=== PATIENT | female | born 1975 | race American Indian/Alaskan Native ===

== ENCOUNTER 2016-12-04 21:44 | Emergency (ER) | payer SELFPAY ==
[2016-12-04] MEDS ORDERED: ATROVENT IH ONE ×2 (22:07→22:14)
[2016-12-04] MEDS ORDERED: PROVENTIL IH ONE ×2 (22:07→22:11)
[2016-12-04 23:02] LABS: Basophils % (Auto) 0.4 % (0.0-1.8); Eosinophils % (Auto) 0.2 % (0.0-4.3); Hematocrit 33.7 % (30.3-42.9); Hemoglobin 10.4 gm/dl (10.1-14.3); Mean Corpuscular HGB Conc 31 % (30-34); Mean Corpuscular Volume 74 fl (79-97); Platelet Count 275 K/mm3 (140-440); Red Blood Count 4.55 M/mm3 (3.65-5.03); Red Cell Distribution Width 19.2 % (13.2-15.2); White Blood Count 7.1 K/mm3 (4.5-11.0)
[2016-12-04 23:06] LABS: Mean Corpuscular Hemoglobin 23 pg (28-32)
[2016-12-04 23:08] LABS: Anion Gap 16 mmol/L; BUN/Creatinine Ratio 16.25; Blood Urea Nitrogen 13 mg/dL (7-17); Calcium 8.8 mg/dL (8.4-10.2); Carbon Dioxide 27 mmol/L (22-30); Chloride 102.3 mmol/L (98-107); Glucose 112 mg/dL (65-100); Potassium 3.9 mmol/L (3.6-5.0); Sodium 141 mmol/L (137-145)
[2016-12-05] MEDS ORDERED: TESSALON PERLES PO ONE (00:47)
[2016-12-05] MEDS ORDERED: MAGNESIUM SULFATE 2GM/50ML 2 GM/50 ML BAG IV ONE (00:47)
[2016-12-05] MEDS ORDERED: ZOFRAN IV ONE (00:47)
[2016-12-05] MEDS ORDERED: PROVENTIL IH ONE (00:47)
[2016-12-05] MEDS ORDERED: ZITHROMAX 500 MG in NACL 0.9% 250ML 250 ML IV ONE (00:47)
[2016-12-05] MEDS ORDERED: MORPHINE IV ONE (00:47)
[2016-12-05] MEDS ORDERED: PHENERGAN PO ONE (00:48)
[2016-12-05] MEDS ORDERED: TORADOL IV ONE (00:48)
--- NOTE | 2016-12-05 01:45 | Emergency Department Report ---
ED Shortness of Breath HPI - General Chief Complaint: Adult Asthma Stated Complaint: ASTHMA Time Seen by Provider: 12/05/16 00:37 Source: patient Mode of arrival: Ambulatory Limitations: No Limitations - History of Present Illness Initial Comments: 41-year-old female with a past medical history morbid obesity, CHF, COPD, asthma with history 7 intubations presents to the hospital with complaints of wheezing and shortness were 1 week. Patient also have cough productive of clear sputum. No complaints of fever but patient completed generalized pain including anterior chest wall pain worse with palpation, movement, and cough. Pain overall is rated moderate to severe in intensity and constant. No complaints of calf tenderness or edema.. Patient using home nebs without improvement. She is not currently on steroids. She does not have a primary care doctor or wildlife refuge specialist and does not use home oxygen. - Related Data Home Medications Medication Instructions Recorded Confirmed Last Taken ALBUTEROL Inhaler [ProAir HFA 2 puff IH QID PRN 08/16/15 08/16/15 08/16/15 Inhaler] Albuterol *Only Ed* [Proventil 2.5 mg IH Q6H PRN 08/16/15 08/16/15 08/16/15 0.5% NEBS] Previous Rx's Medication Instructions Recorded Last Taken Type predniSONE [Deltasone] 50 mg PO QDAY #5 tab 08/16/15 Unknown Rx ALBUTEROL Inhaler [ProAir HFA 2 puff IH QID PRN #1 inhalation 03/12/16 Unknown Rx Inhaler] Cefuroxime Axetil [Ceftin] 500 mg PO Q12H #10 tablet 03/12/16 Unknown Rx predniSONE [Deltasone] 10 mg PO .TAPER #21 tab 03/12/16 Unknown Rx Docusate Sodium [Colace] 100 mg PO BID PRN #20 capsule 07/23/16 Unknown Rx Ferrous Sulfate [Feosol 325 MG tab] 325 mg PO QDAY #30 tablet 07/23/16 Unknown Rx medroxyPROGESTERone ACETATE 10 mg PO QDAY #10 tablet 07/23/16 Unknown Rx [Provera] Azithromycin [Zithromax Z-PATO] 1 dose PO DAILY 5 Days 12/05/16 Unknown Rx Benzonatate [Tessalon Perles] 100 mg PO Q8HR #30 capsule 12/05/16 Unknown Rx Benzonatate [Tessalon Perles] 100 mg PO Q8HR PRN #30 capsule 12/05/16 Unknown Rx HYDROcodone/APAP 5-325 [[place] 1 each PO Q6HR PRN #20 tablet 12/05/16 Unknown Rx 5-325 mg TAB] Ibuprofen [Motrin] 800 mg PO Q8HR PRN #30 tablet 12/05/16 Unknown Rx Prednisone [predniSONE 10 mg 10 mg PO .TAPER #1 tab.ds.pk 12/05/16 Unknown Rx (6-Day Pack, 21 Tabs)] Allergies Allergy/AdvReac Type Severity Reaction Status Date / Time No Known Allergies Allergy Verified 07/23/16 13:39 ED Review of Systems ROS: Stated complaint: ASTHMA Other details as noted in HPI Comment: All other systems reviewed and negative Other: Constitutional: No fevers chills or weight loss Eyes: No eye pain visual changes or discharge ENT: No ear pain or throat pain Neck: Denies pain Respiratory: As per HPI Cardiovascular: As per HPI GI: Denies nausea, vomiting, diarrhea. Complains of abdominal pain secondary to coughing : Denies dysuria Musculoskeletal: Generalized body aches. Skin: Denies rash, lesions, erythema as per HPI Neurologic: Denies headache, numbness, weakness Psychiatric: Denies suicidal ideation, hallucinations ED Past Medical Hx - Past Medical History Hx Hypertension: No Hx Congestive Heart Failure: Yes Hx Diabetes: Yes Hx Deep Vein Thrombosis: No Hx Pulmonary Embolism: No Hx GERD: No Hx Liver Disease: No Hx Sickle Cell Disease: No Hx Asthma: Yes (intubated x 7) Hx COPD: Yes Hx Tuberculosis: No Hx HIV: No Additional medical history: Cardiac catheterization-normal 2011. Morbid obesity. Cholelithiasis. FIBROIDS X 3 - Surgical History Past Surgical History?: No Hx Coronary Stent: No Hx Open Heart Surgery: Yes Hx Internal Defibrillator: No Hx Cholecystectomy: No Hx Appendectomy: No Hx Breast Surgery: No - Social History Smoking Status: Never Smoker Substance Use Type: None - Medications Home Medications: Home Medications Medication Instructions Recorded Confirmed Last Taken Type ALBUTEROL Inhaler [ProAir HFA 2 puff IH QID PRN 08/16/15 08/16/15 08/16/15 History Inhaler] Albuterol *Only Ed* [Proventil 2.5 mg IH Q6H PRN 08/16/15 08/16/15 08/16/15 History 0.5% NEBS] predniSONE [Deltasone] 50 mg PO QDAY #5 tab 08/16/15 Unknown Rx ALBUTEROL Inhaler [ProAir HFA 2 puff IH QID PRN #1 inhalation 03/12/16 Unknown Rx Inhaler] Cefuroxime Axetil [Ceftin] 500 mg PO Q12H #10 tablet 03/12/16 Unknown Rx predniSONE [Deltasone] 10 mg PO .TAPER #21 tab 03/12/16 Unknown Rx Docusate Sodium [Colace] 100 mg PO BID PRN #20 capsule 07/23/16 Unknown Rx Ferrous Sulfate [Feosol 325 MG tab] 325 mg PO QDAY #30 tablet 07/23/16 Unknown Rx medroxyPROGESTERone ACETATE 10 mg PO QDAY #10 tablet 07/23/16 Unknown Rx [Provera] Azithromycin [Zithromax Z-PATO] 1 dose PO DAILY 5 Days 12/05/16 Unknown Rx Benzonatate [Tessalon Perles] 100 mg PO Q8HR #30 capsule 12/05/16 Unknown Rx Benzonatate [Tessalon Perles] 100 mg PO Q8HR PRN #30 capsule 12/05/16 Unknown Rx HYDROcodone/APAP 5-325 [[place] 1 each PO Q6HR PRN #20 tablet 12/05/16 Unknown Rx 5-325 mg TAB] Ibuprofen [Motrin] 800 mg PO Q8HR PRN #30 tablet 12/05/16 Unknown Rx Prednisone [predniSONE 10 mg 10 mg PO .TAPER #1 tab.ds.pk 12/05/16 Unknown Rx (6-Day Pack, 21 Tabs)] ED Physical Exam - General Limitations: No Limitations - Other Other exam information: General: No limitations, patient is alert in no acute distress Head exam: Atraumatic, normocephalic Eyes exam: Normal appearance ENT: Moist mucous membrane, normal oropharynx Neck exam: Normal inspection, full range of motion Respiratory exam: Bilateral expiratory wheezing, reproducible anterior chest wall tenderness. No tachypnea. Patient has received Proventil 10 and Atrovent 1 thus far Cardiovascular: Normal rate and rhythm, normal heart sounds Abdomen: Soft, nondistended, and nontender, with normal bowel sounds, no rebound, or guarding Extremity: Full range of motion normal inspection no deformity, no calf tenderness or edema Back: Normal Inspection, full range of motion, no tenderness Neurologic: Alert, oriented x3, cranial nerves intact, no motor or sensory deficit Psychiatric: normal affect, normal mood Skin: Warm, dry, intact ED Course Vital Signs 12/04/16 12/05/16 12/05/16 22:02 00:33 03:05 Temperature 98.8 F 98.2 F Pulse Rate 85 90 110 H Respiratory 28 H 22 18 Rate Blood Pressure 156/97 Blood Pressure 156/97 137/79 132/73 [Left] O2 Sat by Pulse 100 92 94 Oximetry 12/05/16 03:18 Temperature Pulse Rate 88 Respiratory 18 Rate Blood Pressure Blood Pressure [Left] O2 Sat by Pulse 100 Oximetry - Reevaluation(s) Reevaluation #1: 12/05/16 01:45 Patient received Proventil 10 mg and Atrovent 1 mg prior to my evaluation and has persistent wheezing shortness of breath. Additional nebs, magnesium, Solu- Medrol, Tessalon Perles, azithromycin, morphine, and Phenergan ordered. 12/05/16 03:05 Patient reports feeling much better with treatment. She ambulating in the ED without oxygen and without difficulty. ED Medical Decision Making - Lab Data Result diagrams: 12/04/16 22:35 12/04/16 22:35 Lab Results 12/04/16 12/04/16 Range/Units 22:35 22:35 WBC 7.1 (4.5-11.0) K/mm3 RBC 4.55 (3.65-5.03) M/mm3 Hgb 10.4 (10.1-14.3) gm/dl Hct 33.7 (30.3-42.9) % MCV 74 L (79-97) fl MCH 23 L (28-32) pg MCHC 31 (30-34) % RDW 19.2 H (13.2-15.2) % Plt Count 275 (140-440) K/mm3 Lymph % (Auto) 10.3 L (13.4-35.0) % [place] % (Auto) 11.1 H (0.0-7.3) % Eos % (Auto) 0.2 (0.0-4.3) % Baso % (Auto) 0.4 (0.0-1.8) % Lymph # 0.7 L (1.2-5.4) K/mm3 [place] # 0.8 (0.0-0.8) K/mm3 Eos # 0.0 (0.0-0.4) K/mm3 Baso # 0.0 (0.0-0.1) K/mm3 Seg Neutrophils % 78.0 H (40.0-70.0) % Seg Neutrophils # 5.5 (1.8-7.7) K/mm3 Sodium 141 (137-145) mmol/L Potassium 3.9 (3.6-5.0) mmol/L Chloride 102.3 (98-107) mmol/L Carbon Dioxide 27 (22-30) mmol/L Anion Gap 16 mmol/L BUN 13 (7-17) mg/dL Creatinine 0.8 (0.7-1.2) mg/dL Estimated GFR > 60 ml/min BUN/Creatinine Ratio 16.25 % Glucose 112 H (65-100) mg/dL Calcium 8.8 (8.4-10.2) mg/dL Troponin T < 0.010 (0.00-0.029) ng/mL - EKG Data -: EKG Interpreted by Me (sinus rhythm with fusion complexes rate 79) - Radiology Data Radiology results: image reviewed (chest x-ray: No acute findings) - Medical Decision Making Patient had dramatic improvement in the ED. Tolerated exertion without difficulty after treatment although she still has some mild persistent expiratory wheeze. She does not feel like she needs to be admitted at this time and will be discharged home. She will be Treated for acute bronchitis and acute asthma/COPD exacerbation - Differential Diagnosis pneumonia, bronchitis, asthma, COPD Critical Care Time: No Critical care attestation.: If time is entered above; I have spent that time in minutes in the direct care of this critically ill patient, excluding procedure time. ED Disposition Clinical Impression: Acute bronchitis with chronic obstructive pulmonary disease (COPD) Disposition: DISCHARGED TO HOME OR SELFCARE Is pt being admited?: No Does the pt Need Aspirin: No Condition: Stable Instructions: Acute Bronchitis (ED) Additional Instructions: Take the medication as prescribed. Follow up with doctor or clinic provided. Return if symptoms worsen Prescriptions: Azithromycin [Zithromax Z-PATO] 1 dose PO DAILY 5 Days Benzonatate [Tessalon Perles] 100 mg PO Q8HR PRN #30 capsule PRN Reason: Cough Benzonatate [Tessalon Perles] 100 mg PO Q8HR #30 capsule HYDROcodone/APAP 5-325 [[place] 5-325 mg TAB] 1 each PO Q6HR PRN #20 tablet PRN Reason: Pain Ibuprofen [Motrin] 800 mg PO Q8HR PRN #30 tablet PRN Reason: Pain Prednisone [predniSONE 10 mg (6-Day Pack, 21 Tabs)] 10 mg PO .TAPER #1 tab.ds.pk Referrals: [facility] [Provider Group] - 3-5 Days (Primary care clinic) ANTHONY BOWERS MD [Staff Physician] - 3-5 Days (primary care doctor) JING RUST MD [Staff Physician] - 3-5 Days (Lung specialist) Time of Disposition: 03:27
--- NOTE | 2016-12-05 01:51 | Admit Criteria Form ---
Admission Criteria Documentation: COPD Clinical Indications for Admission to Inpatient Care (Place 'X' for any and all applicable criteria): Admission is indicated for ANY ONE of the following (1)(2)(3): [X ]I. Acute exacerbation by high-risk comorbidity (e.g., pneumonia, dysrhythmia, heart failure, pleural effusion, pneumothorax) or severe underlying COPD (e.g., steroid dependent) [ ]II. Inpatient admission required rather than observation care (see Chronic Obstructive Pulmonary Disease: Observation Care) because of ANY ONE of the following: [ ]a) New or pre-existing signs or symptoms of COPD (eg, dyspnea or Tachypnea at rest or with minimal activity) that persist despite outpatient and observation care treatment [ ]b) New-onset hypoxemia (room air SaO2 less than 90%, PO2 less than 60 mm Hg (8.0 kPa)) that persists despite outpatient and observation care treatment [ ]c) Worsening of pre-existing hypoxemia (eg, new or increased requirement for supplemental oxygen to maintain oxygenation at baseline level) that persists despite outpatient and observation care treatment, with oxygen treatment needs performable only in acute inpatient setting [ ]d) Hypercarbia (PCO2 greater than 40 mm Hg (5.3 kPa))-induced respiratory acidosis (pH less than 7.35) that persists despite outpatient and observation care treatment [ ]e) Supplemental oxygen or respiratory treatments for over 24 hours that are performable only in acute inpatient setting [ ]f) Chest tube placement with active evacuation (e.g., suction, drainage) (5) [ ]g) Other condition, treatment or monitoring requiring inpatient admission [ ]III. Planned invasive surgical or diagnostic procedures requiring acute- care hospitalization [ ]IV. Acute respiratory failure (e.g., uncompensated hypercarbia, severe hypoxemia) [ ]V. Severe comorbid condition (e.g., severe steroid myopathy, acute vertebral fracture) that has acutely worsened pulmonary function [ ]. Confusion state, lethargy, obtundation, stupor or coma Extended stay beyond goal length of stay may be needed for (31)(32): [ ]a ) Respiratory Failure. [ ]b) Severe or persisting hypoxemia or hypercarbia [ ]c) Severe or persistent dyspnea [ ]d) Comorbidities (e.g. chronic heart failure, atrial fibrillation with rapid response, pneumonia) [ ]e) Malnutrition The original [facility] content created by [facility] has been revised. The portions of the content which have been revised are identified through the use of italic text or in bold, and [facility] has neither reviewed nor approved the modified material. All other unmodified content is copyright [facility]. Please see references footnoted in the original [facility] edition 2016 Admission Criteria Met: Yes
[2016-12-05 03:06] VITALS: BP 132/73
--- NOTE | 2016-12-05 07:43 | XRay Report ---
CHEST 2 VIEWS INDICATION: Shortness of breath. COMPARISON: 03/10/2016 FINDINGS: Frontal and lateral chest radiographs, 4 images, again limited due to patient body habitus, though demonstrate normal cardiomediastinal silhouette and slightly hyperexpanded lungs. Prominent/somewhat crowded lung markings are though new since 08/16/2015 CXR. No large pleural effusions or CHF. Grossly unremarkable bones. CONCLUSION: Borderline pulmonary vascular congestion possible, as described. Please correlate. Thank you for the opportunity to participate in this patient's care.
== END 2016-12-05 03:42 | disposition home or self-care (01) ==
LOC: ED 21:44
DX: J44.9 Chronic obstructive pulmonary disease, unspecified (principal); J20.9 Acute bronchitis, unspecified; J45.909 Unspecified asthma, uncomplicated; E11.9 Type 2 diabetes mellitus without complications; I50.9 Heart failure, unspecified; E66.01 Morbid (severe) obesity due to excess calories
CPT/HCPCS: 36415; 71020; 80048; 84484; 85025; 93005; 93010; 96365; 96375; 99284; J0456; J1885; J2270; J2405; J2930; J3475; J7050; Q0169

== ENCOUNTER 2016-12-06 19:14 | Inpatient (IN) | payer OTHER ==
[2016-12-06] MEDS ORDERED: ATROVENT IH ONE ×2 (19:37→22:17)
[2016-12-06] MEDS ORDERED: DELTASONE ONE (19:38)
[2016-12-06] MEDS ORDERED: PROVENTIL IH ONE ×3 (19:38→22:16)
[2016-12-06] MEDS ORDERED: DELTASONE PO ONE (19:45)
[2016-12-07] MEDS ORDERED: MAGNESIUM SULFATE 2GM/50ML 2 GM/50 ML BAG IV ONE (00:50)
[2016-12-07 02:54] LABS: Bilirubin,Urine NEG (Negative); Blood,Urine LG (Negative); Ketones,Urine NEG (Negative); Leukocyte Esterase,Urine NEG (Negative); Mucus,Urine FEW /HPF; Nitrite,Urine NEG (Negative); Protein,Urine <15 mg/dL mg/dL (Negative); Urobilinogen,Urine < 2.0 mg/dL (<2.0); WBC,Urine < 1.0 /HPF (0.0-6.0)
--- NOTE | 2016-12-07 03:08 | Emergency Department Report ---
HPI - General Chief Complaint: Dyspnea/Respdistress Time Seen by Provider: 12/07/16 02:43 - HPI HPI: Room 4 The patient is a 41-year-old female presenting with chief complaint of shortness of breath. The patient states she was seen in the ED a few days ago for the same and treated for acute asthma exacerbation. The patient states she had felt improved at the time of discharge by the time she went home her symptoms have returned. Patient states she's been taking all of her medication but did not give her prednisone prescription filled. Patient states she has some leftover prednisone from previous treatments so she did take some. Patient is to call this been nonproductive. Patient admits to subjective fever and rhinorrhea. Location: Lungs see above Duration: [see above] Quality: Shortness of breath Severity: Moderate Modifying factors: [see above] Context: [see above] Mode of transportation: [not driving] ED Past Medical Hx - Past Medical History Hx Congestive Heart Failure: Yes Hx Asthma: Yes (intubated x 7) Hx COPD: Yes Additional medical history: Cardiac catheterization-normal 2011. Morbid obesity. Cholelithiasis. FIBROIDS X 3 - Family History Family history: no significant - Social History Smoking Status: Former Smoker (none x 6 months) Substance Use Type: None - Medications Home Medications: Home Medications Medication Instructions Recorded Confirmed Last Taken Type Albuterol *Only Ed* [Proventil 2.5 mg IH Q6H PRN 08/16/15 12/07/16 12/06/16 History 0.5% NEBS] predniSONE [Deltasone] 50 mg PO QDAY #5 tab 08/16/15 12/07/16 12/06/16 Rx ALBUTEROL Inhaler [ProAir HFA 2 puff IH QID PRN #1 inhalation 03/12/16 12/07/16 12/06/16 Rx Inhaler] Cefuroxime Axetil [Ceftin] 500 mg PO Q12H #10 tablet 03/12/16 12/07/16 12/06/16 Rx predniSONE [Deltasone] 10 mg PO .TAPER #21 tab 03/12/16 12/07/16 12/06/16 Rx Docusate Sodium [Colace] 100 mg PO BID PRN #20 capsule 07/23/16 12/07/16 Rx Ferrous Sulfate [Feosol 325 MG tab] 325 mg PO QDAY #30 tablet 07/23/16 12/07/16 12/06/16 Rx medroxyPROGESTERone ACETATE 10 mg PO QDAY #10 tablet 07/23/16 12/07/16 12/06/16 Rx [Provera] Azithromycin [Zithromax Z-PATO] 1 dose PO DAILY 5 Days 12/05/16 12/07/16 Rx Benzonatate [Tessalon Perles] 100 mg PO Q8HR #30 capsule 12/05/16 12/07/1612/06 Rx HYDROcodone/APAP 5-325 [[place] 1 each PO Q6HR PRN #20 tablet 12/05/16 12/07/16 01:42 Rx 5-325 mg TAB] Ibuprofen [Motrin] 800 mg PO Q8HR PRN #30 tablet 12/05/16 12/07/16 12/06/16 Rx Prednisone [predniSONE 10 mg 10 mg PO .TAPER #1 tab.ds.pk 12/05/16 12/07/16 Rx (6-Day Pack, 21 Tabs)] ED Review of Systems ROS: Stated complaint: DIFFICULTY IN BREATHING Other details as noted in HPI Comment: All other systems reviewed and negative Constitutional: fever (subjective) Eyes: denies: eye pain, eye discharge, vision change ENT: denies: ear pain, throat pain Respiratory: cough, shortness of breath, wheezing Cardiovascular: denies: chest pain, palpitations Endocrine: no symptoms reported Gastrointestinal: denies: abdominal pain, nausea, diarrhea Genitourinary: denies: urgency, dysuria, discharge Musculoskeletal: denies: back pain, joint swelling, arthralgia Skin: denies: rash, lesions Neurological: denies: headache, weakness, paresthesias Psychiatric: denies: anxiety, depression Hematological/Lymphatic: denies: easy bleeding, easy bruising Physical Exam - Physical Exam Vital Signs: Vital Signs 12/06/16 12/06/16 12/06/16 19:19 19:48 19:57 Temperature 99.6 F Pulse Rate 94 H Pulse Rate [ 94 H 100 H Posterior Bilateral Throughout] Respiratory 20 Rate Respiratory 22 22 Rate [Posterior Bilateral Throughout] Blood Pressure 153/99 Blood Pressure 153/99 [Left] O2 Sat by Pulse 99 Oximetry 12/06/16 12/06/16 12/07/16 22:47 23:10 00:19 Temperature 98.6 F Pulse Rate 85 Pulse Rate [ 84 89 Posterior Bilateral Throughout] Respiratory 20 Rate Respiratory 20 20 Rate [Posterior Bilateral Throughout] Blood Pressure 149/90 Blood Pressure [Left] O2 Sat by Pulse 99 Oximetry Physical Exam: GENERAL: The patient is well-developed well-nourished female lying on stretcher not appearing to be in acute distress. [] HEENT: Normocephalic. Atraumatic. Extraocular motions are intact. Patient has moist mucous membranes. NECK: Supple. No meningitic signs are noted. There is no adenopathy noted. CHEST/LUNGS: Breath sounds with occasional faint expiratory wheezing auscultated. HEART/CARDIOVASCULAR: Regular. There is no tachycardia. There is no gallop rub or murmur. ABDOMEN: Abdomen is soft, nontender. Patient has normal bowel sounds. There is no abdominal distention. SKIN: There is no rash. There is no diaphoresis. NEURO: The patient is awake, alert, and oriented. The patient is cooperative. The patient has normal speech and gait. MUSCULOSKELETAL: There is no evidence of acute injury. ED Course Vital Signs 12/06/16 12/06/16 12/06/16 19:19 19:48 19:57 Temperature 99.6 F Pulse Rate 94 H Pulse Rate [ 94 H 100 H Posterior Bilateral Throughout] Respiratory 20 Rate Respiratory 22 22 Rate [Posterior Bilateral Throughout] Blood Pressure 153/99 Blood Pressure 153/99 [Left] O2 Sat by Pulse 99 Oximetry 12/06/16 12/06/16 12/07/16 22:47 23:10 00:19 Temperature 98.6 F Pulse Rate 85 Pulse Rate [ 84 89 Posterior Bilateral Throughout] Respiratory 20 Rate Respiratory 20 20 Rate [Posterior Bilateral Throughout] Blood Pressure 149/90 Blood Pressure [Left] O2 Sat by Pulse 99 Oximetry ED Medical Decision Making - Lab Data Laboratory Tests 12/07/16 12/07/16 12/07/16 01:15 01:15 02:00 Magnesium 2.0 NT-Pro-B Natriuret Pep 54.91 Urine Color Straw Urine Turbidity Clear Urine pH 7.0 Ur Specific [place] 1.009 Urine Protein <15 mg/dl Urine Glucose (UA) Neg Urine Ketones Neg Urine Blood Lg Urine Nitrite Neg Urine Bilirubin Neg Urine Urobilinogen < 2.0 Ur Leukocyte Esterase Neg Urine WBC (Auto) < 1.0 Urine RBC (Auto) 163.0 U Epithel Cells (Auto) 3.0 Urine Mucus Few - EKG Data -: EKG Interpreted by Me EKG shows normal: sinus rhythm Rate: normal - EKG Data When compared to previous EKG there are: no significant change Interpretation: unchanged when compared t (12/04/2016) - Radiology Data Radiology results: image reviewed (chest x-ray) interpreted by me: Chest x-ray-no definite focal infiltrates, no pneumothorax. His lower lung smith bleeding to be secondary to breast shadows/morbid obesity - Differential Diagnosis asthma exacerbation, COPD exacerbation, CHF exacerbation Critical care attestation.: If time is entered above; I have spent that time in minutes in the direct care of this critically ill patient, excluding procedure time. ED Disposition Clinical Impression: Shortness of breath, COPD exacerbation Disposition: OP ADMITTED IP TO THIS HOSP Is pt being admited?: Yes Does the pt Need Aspirin: Yes Condition: Fair Instructions: Chronic Obstructive Pulmonary Disease (ED) Referrals: PRIMARY CARE, [Primary Care Provider] - 3-5 Days Time of Disposition: 03:40 (hospitalist notified)
[2016-12-07] MEDS ORDERED: NORCO 5/325 PO ONE (03:31)
[2016-12-07 04:24] LABS: Anion Gap 15 mmol/L; BUN/Creatinine Ratio 12.85; Blood Urea Nitrogen 9 mg/dL (7-17); Calcium 8.6 mg/dL (8.4-10.2); Carbon Dioxide 27 mmol/L (22-30); Chloride 98.8 mmol/L (98-107); Glucose 110 mg/dL (65-100); Potassium 4.9 mmol/L (3.6-5.0); Sodium 136 mmol/L (137-145)
[2016-12-07 05:21] LABS: Basophils % (Auto) 0.4 % (0.0-1.8); Hemoglobin 10.5 gm/dl (10.1-14.3); Mean Corpuscular HGB Conc 31 % (30-34); Mean Corpuscular Volume 73 fl (79-97); Platelet Count 279 K/mm3 (140-440); Red Blood Count 4.65 M/mm3 (3.65-5.03); Red Cell Distribution Width 18.8 % (13.2-15.2); White Blood Count 5.3 K/mm3 (4.5-11.0)
[2016-12-07 05:22] LABS: Mean Corpuscular Hemoglobin 23 pg (28-32)
--- NOTE | 2016-12-07 05:28 | History and Physical Report ---
History of Present Illness Date of examination: 12/07/16 Date of admission: 12/07/16 03:39 Chief complaint: Shortness of breath History of present illness: 41-year-old -[place] female with medical history significant for COPD, morbid obesity, obesity hypoventilation syndrome, obstructive sleep apnea presented to the emergency department complaining of shortness of breath for the past 2 weeks. Patient was here 2 days ago and was treated with breathing treatment and was given a prescription for the treatment of COPD and she brought all her medications except steroid. Patient didn't get better and she presented to the emergency department with complaints of shortness of breath. In the ED she was given breathing treatments but she still feels short of breath when she is ambulating. Chest x-ray is normal, CTA is pending. REVIEW OF SYSTEMS: GENERAL: no weight change, no fatigue, no fever HEAD: no head ache EYES: no blurry vision, no acute visual loss EARS: no hearing loss, no discharge, no earache NOSE: no stuffiness, no sneezing, no discharge MOUTH, THROAT AND NECK: no bleeding gums, no sore throat, no swollen neck CARDIAC: no palpitations, no dyspnea on exertion, no orthopnea, no PND, + edema , no chest pain RESPIRATORY: + shortness of breath, no wheeze, no cough, no sputum, no hemoptysis, no asthma GI: no decreased appetite, no nausea, no vomiting, no dysphagia, no diarrhea, no constipation, no abdominal pain URINARY: no change in frequency, no urgency, no polyuria, no hematuria, no incontinence MUSCULOSKELETAL: no muscle weakness, no pain, no joint stiffness NEUROLOGIC: no loss of sensation/numbness, no tingling, no tremors, no weakness/ paralysis HEMATOLOGIC: no anemia, no easy bruising SKIN: no rashes ENDOCRINE: no heat/cold intolerance, no polyuria, no polydipsia, no thyroid problems, no diabetes PSYCHIATRIC: no anxiety, no depression, no suicidal ideations Past History Past Medical History: COPD Past Surgical History: No surgical history Social history: full code. denies: smoking, alcohol abuse, prescription drug abuse, IV drug use Family history: diabetes, hypertension Medications and Allergies Allergies Allergy/AdvReac Type Severity Reaction Status Date / Time No Known Allergies Allergy Verified 07/23/16 13:39 Home Medications Medication Instructions Recorded Confirmed Last Taken Type Albuterol *Only Ed* [Proventil 2.5 mg IH Q6H PRN 08/16/15 12/07/16 12/06/16 History 0.5% NEBS] predniSONE [Deltasone] 50 mg PO QDAY #5 tab 08/16/15 12/07/16 12/06/16 Rx ALBUTEROL Inhaler [ProAir HFA 2 puff IH QID PRN #1 inhalation 03/12/16 12/07/16 12/06/16 Rx Inhaler] Cefuroxime Axetil [Ceftin] 500 mg PO Q12H #10 tablet 03/12/16 12/07/16 12/06/16 Rx predniSONE [Deltasone] 10 mg PO .TAPER #21 tab 03/12/16 12/07/16 12/06/16 Rx Docusate Sodium [Colace] 100 mg PO BID PRN #20 capsule 07/23/16 12/07/16 Rx Ferrous Sulfate [Feosol 325 MG tab] 325 mg PO QDAY #30 tablet 07/23/16 12/07/16 12/06/16 Rx medroxyPROGESTERone ACETATE 10 mg PO QDAY #10 tablet 07/23/16 12/07/16 12/06/16 Rx [Provera] Azithromycin [Zithromax Z-PATO] 1 dose PO DAILY 5 Days 12/05/16 12/07/16 Rx Benzonatate [Tessalon Perles] 100 mg PO Q8HR #30 capsule 12/05/16 12/07/1612/06 Rx HYDROcodone/APAP 5-325 [[place] 1 each PO Q6HR PRN #20 tablet 12/05/16 12/07/16 01:42 Rx 5-325 mg TAB] Ibuprofen [Motrin] 800 mg PO Q8HR PRN #30 tablet 12/05/16 12/07/16 12/06/16 Rx Prednisone [predniSONE 10 mg 10 mg PO .TAPER #1 tab.ds.pk 12/05/16 12/07/16 Rx (6-Day Pack, 21 Tabs)] Active Meds: Active Medications Albuterol/Ipratropium (Duoneb 0.5 Mg-3 Mg/3 Ml Soln) 1 ampul IH QIDRT [place] Azithromycin (Zithromax) 500 mg PO Q24H [facility] Enoxaparin Sodium (Lovenox) 40 mg SUB-Q QDAY [facility] Methylprednisolone Sodium Succinate (Solu-Medrol) 125 mg IV Q8H [facility] Exam - Physical Exam Narrative exam: Not in cardiopulmonary distress. The patient is morbidly obese. Vital signs as documented. Head exam is unremarkable. No scleral icterus . Neck is without jugular venous distension, thyromegaly, or carotid bruits. Lungs scant for scattered wheezing. Cardiac exam reveals regular rate and Rhythm. First and second heart sounds normal. No murmurs, rubs or gallops. Abdominal exam reveals normal bowel sounds, no masses, no organomegaly and no aortic enlargement. Extremities are nonedematous and both femoral and pedal pulses are normal. REED MAN: Alert and oriented 3. No focal weakness. - Constitutional Vitals: Temp Pulse Resp BP Pulse Ox 98.2 F 71 20 119/70 96 12/07/16 01:00 12/07/16 01:00 12/07/16 03:51 12/07/16 01:00 12/07/16 01:00 Results - Labs CBC & Chem 7: 12/07/16 03:56 12/07/16 03:56 Labs: Laboratory Last Values [place] % (Auto) 4.4 % (0.0-7.3) 12/07/16 03:56 Eos % (Auto) 0.0 % (0.0-4.3) 12/07/16 03:56 [place] # 0.2 K/mm3 (0.0-0.8) 12/07/16 03:56 Eos # 0.0 K/mm3 (0.0-0.4) 12/07/16 03:56 Baso # 0.0 K/mm3 (0.0-0.1) 12/07/16 03:56 Seg Neutrophils % 84.4 % (40.0-70.0) H 12/07/16 03:56 Seg Neutrophils # 4.5 K/mm3 (1.8-7.7) 12/07/16 03:56 Sodium 136 mmol/L (137-145) L 12/07/16 03:56 Potassium 4.9 mmol/L (3.6-5.0) D 12/07/16 03:56 Chloride 98.8 mmol/L (98-107) 12/07/16 03:56 Carbon Dioxide 27 mmol/L (22-30) 12/07/16 03:56 Anion Gap 15 mmol/L 12/07/16 03:56 BUN 9 mg/dL (7-17) 12/07/16 03:56 Creatinine 0.7 mg/dL (0.7-1.2) 12/07/16 03:56 Estimated GFR > 60 ml/min 12/07/16 03:56 BUN/Creatinine Ratio 12.85 % 12/07/16 03:56 Glucose 110 mg/dL (65-100) H 12/07/16 03:56 Calcium 8.6 mg/dL (8.4-10.2) 12/07/16 03:56 Magnesium 2.0 mg/dL (1.7-2.3) 12/07/16 01:15 NT-Pro-B Natriuret Pep 54.91 pg/mL (0-450) 12/07/16 01:15 Urine Color Straw (Yellow) 12/07/16 02:00 Urine Turbidity Clear (Clear) 12/07/16 02:00 Urine pH 7.0 (5.0-7.0) 12/07/16 02:00 Ur Specific Theresa 1.009 (1.003-1.030) 12/07/16 02:00 Urine Protein <15 mg/dl mg/dL (Negative) 12/07/16 02:00 Urine Glucose (UA) Neg mg/dL (Negative) 12/07/16 02:00 Urine Ketones Neg mg/dL (Negative) 12/07/16 02:00 Urine Blood Lg (Negative) 12/07/16 02:00 Urine Nitrite Neg (Negative) 12/07/16 02:00 Urine Bilirubin Neg (Negative) 12/07/16 02:00 Urine Urobilinogen < 2.0 mg/dL (<2.0) 12/07/16 02:00 Ur Leukocyte Esterase Neg (Negative) 12/07/16 02:00 Urine WBC (Auto) < 1.0 /HPF (0.0-6.0) 12/07/16 02:00 Urine RBC (Auto) 163.0 /HPF (0.0-6.0) 12/07/16 02:00 U Epithel Cells (Auto) 3.0 /HPF (0-13.0) 12/07/16 02:00 Urine Mucus Few /HPF 12/07/16 02:00 - Imaging and Cardiology Chest x-ray: image reviewed (no acute cardiopulmonary process) Assessment and Plan Assessment and plan: COPD exacerbation Morbid obesity HAMMAD - On Solu-Medrol, breathing treatment, azithromycin - Follow CTA result - Continue CPAP at night DVT prophylaxis - Lovenox Disposition - Admit to the floor Advance Directives: Yes VTE prophylaxis?: Chemical Plan of care discussed with patient/family: Yes
[2016-12-07] MEDS ORDERED: NACL ONE (05:40)
--- NOTE | 2016-12-07 06:22 | Cat Scan Report ---
FINAL REPORT PROCEDURE: CT ANGIO CHEST TECHNIQUE: Computerized axial tomographic angiography of the chest and pulmonary arteries was performed after the IV injection of iodinated nonionic contrast. The image data was postprocessed using maximum intensity projection (MIP) and 2-dimensional multiplanar reformatted (MPR) techniques. The examination is specifically tailored to the evaluation of the pulmonary arteries per clinical request. HISTORY: Short of breath 786.09, chest pain 786.50, r/o pe COMPARISON: No prior studies are available for comparison. FINDINGS: Heart and pericardium: Normal. Thoracic aorta: There is no thoracic aortic aneurysm or dissection.. Pulmonary vasculature: There is no pulmonary embolism.. Lymph nodes: No enlarged thoracic lymph nodes. Lungs: There is suboptimal inspiration. There are no infiltrates, effusions or pneumothoraces.. Musculoskeletal structures: No significant abnormality. Upper abdominal structures: No significant abnormality. IMPRESSION: There is no thoracic aortic aneurysm or dissection.. There is no pulmonary embolism.. There is suboptimal inspiration. There are no infiltrates, effusions or pneumothoraces.. .
[2016-12-07] MEDS: ZITHROMAX PO SCH (06:49)
[2016-12-07] MEDS: DUONEB 0.5 MG-3 MG/3 ML SOLN IH SCH ×4 (07:49→20:14)
[2016-12-07] MEDS: LOVENOX SUB-Q SCH (10:55)
[2016-12-07] MEDS ORDERED: MOTRIN PO PRN (11:00)
[2016-12-07] MEDS ORDERED: PNEUMOVAX 23 IM ONE (12:00)
--- NOTE | 2016-12-07 12:10 | XRay Report ---
AP CHEST :12/07/16 CLINICAL: Shortness of breath. COMPARISON:12/04/16 FINDINGS: Normal heart and pulmonary vasculature. The lungs are normally expanded and clear. The bones and soft tissues are normal. IMPRESSION: Normal.
[2016-12-07] MEDS ORDERED: ATROVENT IH PRN (12:17)
[2016-12-07] MEDS ORDERED: PROVENTIL IH PRN (12:20)
--- NOTE | 2016-12-07 16:15 | Event Note ---
Date: 12/07/16 41-year-old -[place] female with medical history significant for COPD, morbid obesity, obesity hypoventilation syndrome, obstructive sleep apnea presented to the emergency department complaining of shortness of breath for the past 2 weeks. She was admitted this am. Will cont current Mx as dictated in H and P. Will resume home meds and do 6 minutes walk study for home o2 requirement.
[2016-12-08] MEDS ORDERED: APRESOLINE PO PRN (00:41)
[2016-12-08] MEDS ORDERED: APRESOLINE IV PRN (00:47)
[2016-12-08] MEDS: ZITHROMAX PO SCH (06:12)
--- NOTE | 2016-12-08 08:46 | Discharge Summary ---
Providers - Providers Date of Admission: 12/07/16 03:39 Date of discharge: 12/08/16 Attending physician: OBDULIO HOOKER 12/07/16 18:03 Consult to Case Management [CONS] Routine Services Needed at Discharge: Gis Mapping Technician Notified:: no Primary care physician: PROJECT PLANNER Hospitalization Condition: Fair Hospital course: 41-year-old -[place] female with medical history significant for COPD, morbid obesity, obesity hypoventilation syndrome, obstructive sleep apnea presented to the emergency department complaining of shortness of breath for the past 2 weeks. Patient was here 2 days ago and was treated with breathing treatment and was given a prescription for the treatment of COPD and she brought all her medications except steroid. Patient didn't get better and she presented to the ER with complaints of shortness of breath. In the ED she was given breathing treatments but she still c/o short of breath when she is ambulats. Chest x-ray is normal, CTA did not show any PE or infiltrates. She was placed on BiPAP as needed and scheduled breathing treatment along with emperic steroid. She was improved clinically. She was assessed for home o2 requirement by 6 minutes walk study and she did qualified for O2. She was discharged home with home O2. She will need out pt sleep study for HAMMAD. Discharge Diagnoses; Acute hypoxic respiratory failure COPD exacerbation Morbid obesity, due to access calorie HAMMAD, need out pt sleep study Accelerated HTN Disposition: DISCHARGED TO HOME OR SELFCARE Time spent for discharge: 32 minutes Core Measure Documentation - Palliative Care Palliative Care/ Comfort Measures: Not Applicable - Core Measures Any of the following diagnoses?: none Exam - Constitutional Vitals: Temp Pulse Resp BP Pulse Ox 97.4 F L 62 22 138/87 99 12/08/16 08:00 12/08/16 08:00 12/08/16 08:00 12/08/16 08:00 12/08/16 08:00 General appearance: Present: no acute distress, obese - EENT Eyes: Present: PERRL, EOM intact ENT: hearing intact, clear oral mucosa - Neck Neck: Present: supple, normal ROM - Respiratory Respiratory: bilateral: CTA - Cardiovascular Rhythm: regular Heart Sounds: Present: S1 & S2 - Extremities Extremities: no ischemia, No edema Peripheral Pulses: within normal limits - Abdominal General gastrointestinal: Present: soft, non-tender, non-distended - Integumentary Integumentary: Present: warm, dry - Musculoskeletal Musculoskeletal: strength equal bilaterally - Psychiatric Psychiatric: appropriate mood/affect - Neurologic Neurologic: no focal deficits, moves all extremities Plan Activity: advance as tolerated Weight Bearing Status: Weight Bear as Tolerated Diet: low fat, low salt Durable Medical Equipment Needed Upon Discharge: Oxygen Additional Instructions: out pt sleep study Follow up with: PRIMARY CARE, [Primary Care Provider] - 3-5 Days
[2016-12-08] MEDS: DUONEB 0.5 MG-3 MG/3 ML SOLN IH SCH ×2 (08:55→13:25)
--- NOTE | 2016-12-08 10:00 | Admit Criteria Form ---
Admission Criteria Documentation: COPD Clinical Indications for Admission to Inpatient Care (Place 'X' for any and all applicable criteria): Admission is indicated for ANY ONE of the following (1)(2)(3): [ ]I. Acute exacerbation by high-risk comorbidity (e.g., pneumonia, dysrhythmia, heart failure, pleural effusion, pneumothorax) or severe underlying COPD (e.g., steroid dependent) [X]II. Inpatient admission required rather than observation care (see Chronic Obstructive Pulmonary Disease: Observation Care) because of ANY ONE of the following: [X]a) New or pre-existing signs or symptoms of COPD (eg, dyspnea or Tachypnea at rest or with minimal activity) that persist despite outpatient and observation care treatment [ ]b) New-onset hypoxemia (room air SaO2 less than 90%, PO2 less than 60 mm Hg (8.0 kPa)) that persists despite outpatient and observation care treatment [ ]c) Worsening of pre-existing hypoxemia (eg, new or increased requirement for supplemental oxygen to maintain oxygenation at baseline level) that persists despite outpatient and observation care treatment, with oxygen treatment needs performable only in acute inpatient setting [ ]d) Hypercarbia (PCO2 greater than 40 mm Hg (5.3 kPa))-induced respiratory acidosis (pH less than 7.35) that persists despite outpatient and observation care treatment [ ]e) Supplemental oxygen or respiratory treatments for over 24 hours that are performable only in acute inpatient setting [ ]f) Chest tube placement with active evacuation (e.g., suction, drainage) (5) [ ]g) Other condition, treatment or monitoring requiring inpatient admission [ ]III. Planned invasive surgical or diagnostic procedures requiring acute- care hospitalization [ ]IV. Acute respiratory failure (e.g., uncompensated hypercarbia, severe hypoxemia) [ ]V. Severe comorbid condition (e.g., severe steroid myopathy, acute vertebral fracture) that has acutely worsened pulmonary function [ ]. Confusion state, lethargy, obtundation, stupor or coma Extended stay beyond goal length of stay may be needed for (31)(32): [ ]a ) Respiratory Failure. [ ]b) Severe or persisting hypoxemia or hypercarbia [ ]c) Severe or persistent dyspnea [ ]d) Comorbidities (e.g. chronic heart failure, atrial fibrillation with rapid response, pneumonia) [ ]e) Malnutrition The original [facility] content created by [facility] has been revised. The portions of the content which have been revised are identified through the use of italic text or in bold, and [facility] has neither reviewed nor approved the modified material. All other unmodified content is copyright [facility]. Please see references footnoted in the original [facility] edition 2016 Admission Criteria Met: Yes
[2016-12-08] MEDS: LOVENOX SUB-Q SCH (10:39)
[2016-12-08 17:43] VITALS: BP 140/92
== END 2016-12-08 18:12 | disposition home or self-care (01) | DRG 189 ==
LOC: ED 19:14 → 3A 12-07 03:39
PROVIDERS: ADMIT Internal Medicine; ATTEND Internal Medicine
PROC: 5A09357 Assistance with Respiratory Ventilation, Less than 24 Consecutive Hours, Continuous Positive Airway Pressure (ICD-10-PCS; principal; 2016-12-07)
DX: J96.01 Acute respiratory failure with hypoxia (principal); J45.901 Unspecified asthma with (acute) exacerbation; Z68.44 Body mass index [BMI] 60.0-69.9, adult; J44.1 Chronic obstructive pulmonary disease with (acute) exacerbation; E66.2 Morbid (severe) obesity with alveolar hypoventilation; G47.33 Obstructive sleep apnea (adult) (pediatric); Z83.3 Family history of diabetes mellitus; Z82.49 Family history of ischemic heart disease and other diseases of the circulatory system; I10 Essential (primary) hypertension; Z99.81 Dependence on supplemental oxygen
CPT/HCPCS: 36415; 71010; 71275; 80048; 81001; 81025; 83735; 83880; 85025; 87400; 93005; 93010; 94640; 94760; 96365; J0360; J1650; J2930; J3475; J7512; Q9967

== ENCOUNTER 2017-02-15 21:06 | Emergency (ER) | payer SELFPAY ==
[2017-02-15 22:03] VITALS: BP 129/90
[2017-02-15 22:59] LABS: Basophils % (Auto) 0.8 % (0.0-1.8); Eosinophils % (Auto) 1.4 % (0.0-4.3); Hematocrit 33.1 % (30.3-42.9); Hemoglobin 10.3 gm/dl (10.1-14.3); Mean Corpuscular HGB Conc 31 % (30-34); Mean Corpuscular Volume 74 fl (79-97); Platelet Count 261 K/mm3 (140-440); Red Blood Count 4.47 M/mm3 (3.65-5.03); Red Cell Distribution Width 19.1 % (13.2-15.2); White Blood Count 8.7 K/mm3 (4.5-11.0)
[2017-02-15 23:00] LABS: Mean Corpuscular Hemoglobin 23 pg (28-32)
[2017-02-15 23:07] LABS: INR 0.99 (0.87-1.13)
[2017-02-15 23:15] LABS: Anion Gap 17 mmol/L; BUN/Creatinine Ratio 18.33; Blood Urea Nitrogen 11 mg/dL (7-17); Calcium 8.8 mg/dL (8.4-10.2); Carbon Dioxide 25 mmol/L (22-30); Chloride 104.2 mmol/L (98-107); Glucose 108 mg/dL (65-100); Potassium 4.2 mmol/L (3.6-5.0); Sodium 142 mmol/L (137-145)
--- NOTE | 2017-02-16 07:29 | XRay Report ---
ROUTINE CHEST, TWO VIEWS: HISTORY: Dyspnea. Compared to 12/07/16. The trachea, heart, mediastinal contour, lung smith and bony thorax are unremarkable. IMPRESSION: Unremarkable chest x-ray.
--- NOTE | 2017-02-18 10:05 | ED Elopement Review ---
ED Pt Elopement review - Results review Lab results: Laboratory Tests 02/15/17 02/15/17 02/15/17 22:37 22:37 22:37 WBC 8.7 RBC 4.47 Hgb 10.3 Hct 33.1 MCV 74 L MCH 23 L MCHC 31 RDW 19.1 H Plt Count 261 Lymph % (Auto) 31.2 [place] % (Auto) 8.5 H Eos % (Auto) 1.4 Baso % (Auto) 0.8 Lymph # 2.7 [place] # 0.7 Eos # 0.1 Baso # 0.1 Seg Neutrophils % 58.1 Seg Neutrophils # 5.1 PT 13.0 INR 0.99 Sodium 142 Potassium 4.2 Chloride 104.2 Carbon Dioxide 25 Anion Gap 17 BUN 11 Creatinine 0.6 L Estimated GFR > 60 BUN/Creatinine Ratio 18.33 Glucose 108 H Calcium 8.8 Troponin T HCG, Quant 02/15/17 02/15/17 22:37 22:37 WBC RBC Hgb Hct MCV MCH MCHC RDW Plt Count Lymph % (Auto) [place] % (Auto) Eos % (Auto) Baso % (Auto) Lymph # [place] # Eos # Baso # Seg Neutrophils % Seg Neutrophils # PT INR Sodium Potassium Chloride Carbon Dioxide Anion Gap BUN Creatinine Estimated GFR BUN/Creatinine Ratio Glucose Calcium Troponin T < 0.010 HCG, Quant < 2 - Call Back decision Pt Call Back Decision: No action required
== END 2017-02-16 00:10 | disposition left against medical advice (07) ==
LOC: ED 21:06
DX: R06.02 Shortness of breath (principal); R06.2 Wheezing; Z53.21 Procedure and treatment not carried out due to patient leaving prior to being seen by health care provider
CPT/HCPCS: 36415; 71020; 80048; 84484; 84702; 85025; 85610; 93005; 93010

== ENCOUNTER 2017-04-20 11:27 | Emergency (ER) | payer SELFPAY ==
--- NOTE | 2017-04-20 11:49 | Emergency Department Report ---
Chief Complaint: Dyspnea/Respdistress Stated Complaint: SOB/COPD Time Seen by Provider: 04/20/17 11:47 - HPI History of Present Illness: PT c/o SOB and feeling chest tightness x 1 week. PT states she has COPD but she has not heard herself wheeze. - ROS Review of Systems: + palpitations - edema to ble + urinary frequency - Exam Physical Exam: morbidly obese + diminished lung sounds, + exp wheezing MSE screening note: Focused history and physical exam performed. Due to findings the following was ordered: xr, ekg, labs ED Disposition for MSE Condition: Stable
[2017-04-20] MEDS ORDERED: DUONEB *Not for PRN Use IH ONE (11:50)
--- NOTE | 2017-04-20 12:07 | XRay Report ---
ROUTINE CHEST, TWO VIEWS: Dyspnea. PA and lateral views demonstrate the heart and mediastinal contour to be of normal size and shape. The lungs are clear and fully expanded and the soft tissues and bony structures are normal. No change compared to February 15, 2017. IMPRESSION: Normal study.
[2017-04-20 12:51] LABS: Basophils % (Auto) 0.7 % (0.0-1.8); Eosinophils % (Auto) 0.7 % (0.0-4.3); Hematocrit 34.1 % (30.3-42.9); Hemoglobin 10.6 gm/dl (10.1-14.3); Mean Corpuscular HGB Conc 31 % (30-34); Mean Corpuscular Volume 75 fl (79-97); Platelet Count 232 K/mm3 (140-440); Red Blood Count 4.52 M/mm3 (3.65-5.03); Red Cell Distribution Width 18.5 % (13.2-15.2); White Blood Count 5.2 K/mm3 (4.5-11.0)
[2017-04-20 12:52] LABS: Creatine Kinase MB 2.9 ng/mL (0.0-4.0)
[2017-04-20 12:53] LABS: Alanine Aminotransferase 17 units/L (7-56); Albumin 3.2 g/dL (3.9-5); Albumin/Globulin Ratio 0.9 %; Alkaline Phosphatase 68 units/L (35-129); Anion Gap 17 mmol/L; BUN/Creatinine Ratio 14.28; Blood Urea Nitrogen 10 mg/dL (7-17); Calcium 8.5 mg/dL (8.4-10.2); Carbon Dioxide 26 mmol/L (22-30); Creatine Kinase 310 units/L (30-135); Glucose 129 mg/dL (65-100); Sodium 138 mmol/L (137-145); Total Protein 6.6 g/dL (6.3-8.2)
[2017-04-20 13:00] LABS: Mean Corpuscular Hemoglobin 24 pg (28-32)
[2017-04-20 13:05] LABS: INR 0.97 (0.87-1.13)
[2017-04-20 13:06] LABS: Partial Thromboplastin Time 28.7 Sec. (24.2-36.6)
[2017-04-20 13:54] LABS: Bilirubin,Urine NEG (Negative); Blood,Urine NEG (Negative); Ketones,Urine NEG (Negative); Leukocyte Esterase,Urine NEG (Negative); Mucus,Urine FEW /HPF; Nitrite,Urine NEG (Negative); Protein,Urine <15 mg/dL mg/dL (Negative); Urobilinogen,Urine < 2.0 mg/dL (<2.0)
[2017-04-20] MEDS ORDERED: PROVENTIL IH ONE (16:30)
[2017-04-20] MEDS ORDERED: NACL ONE (16:40)
[2017-04-20 19:04] VITALS: BP 119/70
--- NOTE | 2017-04-20 19:33 | Emergency Department Report ---
ED General Adult HPI - General Chief complaint: Chest Pain Stated complaint: SOB/COPD Time Seen by Provider: 04/20/17 11:47 Source: patient Mode of arrival: Ambulatory Limitations: No Limitations - History of Present Illness Initial comments: Patient is a 5-year-old female past history of asthma exacerbation presents with shortness of breath it's been going on for last 3 days. Patient states that her shortness of breath is moderate walking makes it worse and nothing makes it better. She has had no leg swelling. Patient states that her chest pain is only when she breathes in and it similar to when she always has COPD. The chest pain as a 4 out of 10 illness occurs when she presented deeply the pain does not radiate this low-grade in her bilateral chest. Is is not new chest pain. Patient is not on any supplemental oxygen. She denies having any fever, nausea or vomiting. She has had no sick contacts. And is satting 94% on room air. Severity scale (0 -10): 0 - Related Data Home Medications Medication Instructions Recorded Confirmed Last Taken Albuterol *Only Ed* [Proventil 2.5 mg IH Q6H PRN 08/16/15 12/07/16 12/06/16 0.5% NEBS] Previous Rx's Medication Instructions Recorded Last Taken Type predniSONE [Deltasone] 50 mg PO QDAY #5 tab 08/16/15 12/06/16 Rx ALBUTEROL Inhaler [ProAir HFA 2 puff IH QID PRN #1 inhalation 03/12/16 12/06/16 Rx Inhaler] predniSONE [Deltasone] 10 mg PO .TAPER #21 tab 03/12/16 12/06/16 Rx Docusate Sodium [Colace CAP] 100 mg PO BID PRN #20 capsule 07/23/16 12/06/16 Rx Ferrous Sulfate [Feosol 325 MG tab] 325 mg PO QDAY #30 tablet 07/23/16 12/06/16 Rx medroxyPROGESTERone ACETATE 10 mg PO QDAY #10 tablet 07/23/16 12/06/16 Rx [Provera] Azithromycin [Zithromax Z-PATO] 1 dose PO DAILY 5 Days 12/05/16 12/06/16 Rx Benzonatate [Tessalon Perles] 100 mg PO Q8HR #30 capsule 12/05/16 12/06/16 Rx HYDROcodone/APAP 5-325 [[place] 1 each PO Q6HR PRN #20 tablet 12/05/16 12/07/16 01 :42 Rx 5-325 mg TAB] Ibuprofen [Motrin 800 MG tab] 800 mg PO Q8HR PRN #30 tablet 12/05/16 12/06/16 Rx Prednisone [predniSONE 10 mg 10 mg PO .TAPER #1 tab.ds.pk 12/05/16 12/06/16 Rx (6-Day Pack, 21 Tabs)] ALBUTEROL Inhaler [ProAir HFA 4 puff IH QID PRN #1 inhalation 04/20/17 Unknown Rx Inhaler] predniSONE [Deltasone] 20 mg PO BID #10 tab 04/20/17 Unknown Rx Allergies Allergy/AdvReac Type Severity Reaction Status Date / Time No Known Allergies Allergy Verified 07/23/16 13:39 ED Review of Systems ROS: Stated complaint: SOB/COPD Other details as noted in HPI Constitutional: denies: chills, fever Eyes: denies: eye pain, eye discharge, vision change ENT: denies: ear pain, throat pain Respiratory: SOB with exertion. denies: cough, shortness of breath, wheezing Cardiovascular: denies: chest pain, palpitations Endocrine: no symptoms reported Gastrointestinal: denies: abdominal pain, nausea, diarrhea Genitourinary: denies: urgency, dysuria, discharge Musculoskeletal: denies: back pain, joint swelling, arthralgia Skin: denies: rash, lesions Neurological: denies: headache, weakness, paresthesias Psychiatric: denies: anxiety, depression Hematological/Lymphatic: denies: easy bleeding, easy bruising ED Past Medical Hx - Past Medical History Previous Medical History?: Yes Hx Hypertension: No Hx Congestive Heart Failure: Yes Hx Diabetes: Yes Hx Deep Vein Thrombosis: No Hx Pulmonary Embolism: No Hx GERD: No Hx Liver Disease: No Hx Sickle Cell Disease: No Hx Asthma: Yes (intubated x 7) Hx COPD: Yes Hx Tuberculosis: No Hx HIV: No Additional medical history: Cardiac catheterization-normal 2011. Morbid obesity. Cholelithiasis. FIBROIDS X 3 - Surgical History Past Surgical History?: Yes Hx Coronary Stent: No Hx Open Heart Surgery: Yes Hx Internal Defibrillator: No Hx Cholecystectomy: No Hx Appendectomy: No Hx Breast Surgery: No - Social History Smoking Status: Former Smoker Substance Use Type: None - Medications Home Medications: Home Medications Medication Instructions Recorded Confirmed Last Taken Type Albuterol *Only Ed* [Proventil 2.5 mg IH Q6H PRN 08/16/15 12/07/16 12/06/16 History 0.5% NEBS] predniSONE [Deltasone] 50 mg PO QDAY #5 tab 08/16/15 12/07/16 12/06/16 Rx ALBUTEROL Inhaler [ProAir HFA 2 puff IH QID PRN #1 inhalation 03/12/16 12/07/16 12/06/16 Rx Inhaler] predniSONE [Deltasone] 10 mg PO .TAPER #21 tab 03/12/16 12/07/16 12/06/16 Rx Docusate Sodium [Colace CAP] 100 mg PO BID PRN #20 capsule 07/23/16 12/07/16 Rx Ferrous Sulfate [Feosol 325 MG tab] 325 mg PO QDAY #30 tablet 07/23/16 12/07/16 12/06/16 Rx medroxyPROGESTERone ACETATE 10 mg PO QDAY #10 tablet 07/23/16 12/07/16 12/06/16 Rx [Provera] Azithromycin [Zithromax Z-PATO] 1 dose PO DAILY 5 Days 12/05/16 12/07/16 Rx Benzonatate [Tessalon Perles] 100 mg PO Q8HR #30 capsule 12/05/16 12/07/1612/06 Rx HYDROcodone/APAP 5-325 [[place] 1 each PO Q6HR PRN #20 tablet 12/05/16 12/07/16 01:42 Rx 5-325 mg TAB] Ibuprofen [Motrin 800 MG tab] 800 mg PO Q8HR PRN #30 tablet 12/05/16 12/07/16 Rx Prednisone [predniSONE 10 mg 10 mg PO .TAPER #1 tab.ds.pk 12/05/16 12/07/16 Rx (6-Day Pack, 21 Tabs)] ALBUTEROL Inhaler [ProAir HFA 4 puff IH QID PRN #1 inhalation 04/20/17 Unknown Rx Inhaler] predniSONE [Deltasone] 20 mg PO BID #10 tab 04/20/17 Unknown Rx ED Physical Exam - General Limitations: No Limitations General appearance: alert, in no apparent distress - Head Head exam: Present: atraumatic, normocephalic - Eye Eye exam: Present: normal appearance - ENT ENT exam: Present: mucous membranes moist - Neck Neck exam: Present: normal inspection - Respiratory Respiratory exam: Present: wheezes - Cardiovascular Cardiovascular Exam: Present: regular rate, normal rhythm. Absent: systolic murmur, diastolic murmur, rubs, gallop - GI/Abdominal GI/Abdominal exam: Present: soft, normal bowel sounds - Extremities Exam Extremities exam: Present: other (+1 pedal edema that is chronic) - Back Exam Back exam: Present: normal inspection - Neurological Exam Neurological exam: Present: alert, oriented X3 - Psychiatric Psychiatric exam: Present: normal affect, normal mood - Skin Skin exam: Present: warm, dry, intact, normal color. Absent: rash ED Course Vital Signs 04/20/17 04/20/17 04/20/17 11:47 16:14 16:15 Temperature 98.5 F Pulse Rate 73 87 Pulse Rate [ Posterior Bilateral Throughout] Respiratory 18 18 Rate Respiratory Rate [Posterior Bilateral Throughout] Blood Pressure 140/89 Blood Pressure 143/84 [Left] O2 Sat by Pulse 94 94 94 Oximetry 04/20/17 04/20/17 04/20/17 17:39 18:27 19:03 Temperature Pulse Rate 89 Pulse Rate [ 72 83 Posterior Bilateral Throughout] Respiratory 20 Rate Respiratory 22 18 Rate [Posterior Bilateral Throughout] Blood Pressure Blood Pressure 119/70 [Left] O2 Sat by Pulse 96 Oximetry - Reevaluation(s) Reevaluation #1: 04/20/17 19:36 A single albuterol breathing treatment she states that she is feeling better. Discussed possible admission with patient she is walking without any supplemental oxygen and no sat drop. ED Medical Decision Making - Lab Data Result diagrams: 04/20/17 12:16 04/20/17 12:16 Laboratory Results - last 24 hr 04/20/17 04/20/17 04/20/17 12:16 12:16 12:16 WBC 5.2 RBC 4.52 Hgb 10.6 Hct 34.1 MCV 75 L MCH 24 L MCHC 31 RDW 18.5 H Plt Count 232 Lymph % (Auto) 35.9 H [place] % (Auto) 6.2 Eos % (Auto) 0.7 Baso % (Auto) 0.7 Lymph # 1.9 [place] # 0.3 Eos # 0.0 Baso # 0.0 Seg Neutrophils % 56.5 Seg Neutrophils # 2.9 PT 13.4 INR 0.97 APTT 28.7 Sodium 138 Potassium 4.0 Chloride 99.0 Carbon Dioxide 26 Anion Gap 17 BUN 10 Creatinine 0.7 Estimated GFR > 60 BUN/Creatinine Ratio 14.28 Glucose 129 H Calcium 8.5 Total Bilirubin 0.30 AST 18 ALT 17 Alkaline Phosphatase 68 Total Creatine Kinase CK-MB (CK-2) CK-MB (CK-2) Rel Index Troponin T NT-Pro-B Natriuret Pep Total Protein 6.6 Albumin 3.2 L Albumin/Globulin Ratio 0.9 Urine Color Urine Turbidity Urine pH Ur Specific [place] Urine Protein Urine Glucose (UA) Urine Ketones Urine Blood Urine Nitrite Urine Bilirubin Urine Urobilinogen Ur Leukocyte Esterase Urine WBC (Auto) Urine RBC (Auto) U Epithel Cells (Auto) Hyaline Casts Urine Mucus 04/20/17 04/20/17 04/20/17 12:16 13:38 14:53 WBC RBC Hgb Hct MCV MCH MCHC RDW Plt Count Lymph % (Auto) [place] % (Auto) Eos % (Auto) Baso % (Auto) Lymph # [place] # Eos # Baso # Seg Neutrophils % Seg Neutrophils # PT INR APTT Sodium Potassium Chloride Carbon Dioxide Anion Gap BUN Creatinine Estimated GFR BUN/Creatinine Ratio Glucose Calcium Total Bilirubin AST ALT Alkaline Phosphatase Total Creatine Kinase 310 H CK-MB (CK-2) 2.9 CK-MB (CK-2) Rel Index 0.9 Troponin T < 0.010 < 0.010 NT-Pro-B Natriuret Pep 177.7 Total Protein Albumin Albumin/Globulin Ratio Urine Color Yellow Urine Turbidity Clear Urine pH 5.0 Ur Specific [place] 1.017 Urine Protein <15 mg/dl Urine Glucose (UA) Neg Urine Ketones Neg Urine Blood Neg Urine Nitrite Neg Urine Bilirubin Neg Urine Urobilinogen < 2.0 Ur Leukocyte Esterase Neg Urine WBC (Auto) 1.0 Urine RBC (Auto) 1.0 U Epithel Cells (Auto) 4.0 Hyaline Casts 1 Urine Mucus Few - EKG Data -: EKG Interpreted by Me - EKG Data 04/20/17 19:30 EKG shows normal sinus rhythm no LVH no T-wave inversions no ST segment elevation. - Radiology Data Radiology results: report reviewed, image reviewed Chest x-ray shows no acute pulmonary disease - Medical Decision Making Medical diagnosis: COPD exacerbation Differential medical diagnosis asthma exacerbation, pneumonia, CHF, pulmonary edema We'll get CBC, CMP and chest x-ray breathing treatment and steroids. Patient is feeling better after breathing treatment patient does not need further imaging as symptoms are likely COPD exacerbation. Patient's troponin is negative and BNP is negative. EKG shows no worrisome signs We'll send patient home with albuterol and steroids. Additional verbal instructions were given. Critical Care Time: No Critical care attestation.: If time is entered above; I have spent that time in minutes in the direct care of this critically ill patient, excluding procedure time. ED Disposition Clinical Impression: COPD exacerbation Disposition: DC-01 TO HOME OR SELFCARE Is pt being admited?: No Does the pt Need Aspirin: No Condition: Stable Instructions: Chronic Obstructive Pulmonary Disease (ED) Prescriptions: ALBUTEROL Inhaler [ProAir HFA Inhaler] 4 puff IH QID PRN #1 inhalation PRN Reason: Shortness Of Breath predniSONE [Deltasone] 20 mg PO BID #10 tab Referrals: PRIMARY CARE, [Primary Care Provider] - 3-5 Days Time of Disposition: 19:43
== END 2017-04-20 20:41 | disposition home or self-care (01) ==
LOC: ED 11:27
DX: J44.1 Chronic obstructive pulmonary disease with (acute) exacerbation (principal); I50.9 Heart failure, unspecified; E11.9 Type 2 diabetes mellitus without complications; J45.909 Unspecified asthma, uncomplicated; Z87.891 Personal history of nicotine dependence
CPT/HCPCS: 36415; 71020; 80053; 81001; 82550; 82553; 83880; 84484; 85025; 85610; 85730; 93005; 93010; 94644; 96374; 99284; J2930

== ENCOUNTER 2017-04-28 11:24 | Outpatient (CLI) | payer OTHER ==
[2017-04-28] MEDS ORDERED: PROVENTIL IH ONE (11:57)
== END 2017-04-28 11:25 | disposition home or self-care (01) ==
LOC: PF 11:24
PROVIDERS: ATTEND Internal Medicine
DX: I50.9 Heart failure, unspecified (principal); J44.9 Chronic obstructive pulmonary disease, unspecified; J45.909 Unspecified asthma, uncomplicated; E66.9 Obesity, unspecified; F12.10 Cannabis abuse, uncomplicated; Z87.891 Personal history of nicotine dependence
CPT/HCPCS: 94060; 94640; 94729

== ENCOUNTER 2017-06-17 12:08 | Emergency (ER) | payer SELFPAY ==
[2017-06-17 12:38] VITALS: BP 118/79
[2017-06-17 13:08] LABS: Basophils % (Auto) 0.6 % (0.0-1.8); Eosinophils % (Auto) 1.6 % (0.0-4.3); Hematocrit 31.5 % (30.3-42.9); Hemoglobin 10.1 gm/dl (10.1-14.3); Mean Corpuscular HGB Conc 32 % (30-34); Mean Corpuscular Volume 74 fl (79-97); Platelet Count 228 K/mm3 (140-440); Red Blood Count 4.23 M/mm3 (3.65-5.03); Red Cell Distribution Width 19.4 % (13.2-15.2); White Blood Count 7.3 K/mm3 (4.5-11.0)
[2017-06-17 13:09] LABS: Mean Corpuscular Hemoglobin 24 pg (28-32)
[2017-06-17 13:18] LABS: INR 0.94 (0.87-1.13)
[2017-06-17 13:19] LABS: Partial Thromboplastin Time 28.6 Sec. (24.2-36.6)
[2017-06-17 13:29] LABS: Alanine Aminotransferase 12 units/L (7-56); Albumin 3.6 g/dL (3.9-5); Albumin/Globulin Ratio 1.1 %; Alkaline Phosphatase 81 units/L (35-129); Anion Gap 16 mmol/L; BUN/Creatinine Ratio 14; Bilirubin,Total < 0.20 mg/dL (0.1-1.2); Blood Urea Nitrogen 11 mg/dL (7-17); Calcium 8.7 mg/dL (8.4-10.2); Carbon Dioxide 27 mmol/L (22-30); Chloride 103.6 mmol/L (98-107); Glucose 87 mg/dL (65-100); Potassium 4.2 mmol/L (3.6-5.0); Sodium 142 mmol/L (137-145)
--- NOTE | 2017-06-17 16:17 | Emergency Department Report ---
ED Chest Pain HPI - General Chief Complaint: Vaginal Bleeding Stated Complaint: VAGINAL BLEEDING,WEAK ,SOB Source: patient Mode of arrival: Ambulatory Limitations: No Limitations - History of Present Illness Initial Comments: I called patient several times over head and went looking for her both in the waiting room and the fascia waiting area, patient did not answer 3 times. I called the listed cell phone number and left a message for the patient to return to the ED for evaluation MD Complaint: chest pain -: unknown Onset: other Pain Location: other Pain Radiation: other Severity: Unable to Determine Severity scale (0 -10): 10 - Related Data Home Medications Medication Instructions Recorded Confirmed Last Taken Albuterol *Only Ed* [Proventil 2.5 mg IH Q6H PRN 08/16/15 12/07/16 12/06/16 0.5% NEBS] Previous Rx's Medication Instructions Recorded Last Taken Type predniSONE [Deltasone] 50 mg PO QDAY #5 tab 08/16/15 12/06/16 Rx ALBUTEROL Inhaler [ProAir HFA 2 puff IH QID PRN #1 inhalation 03/12/16 12/06/16 Rx Inhaler] predniSONE [Deltasone] 10 mg PO .TAPER #21 tab 03/12/16 12/06/16 Rx Docusate Sodium [Colace CAP] 100 mg PO BID PRN #20 capsule 07/23/16 12/06/16 Rx Ferrous Sulfate [Feosol 325 MG tab] 325 mg PO QDAY #30 tablet 07/23/16 12/06/16 Rx medroxyPROGESTERone ACETATE 10 mg PO QDAY #10 tablet 07/23/16 12/06/16 Rx [Provera] Azithromycin [Zithromax Z-PATO] 1 dose PO DAILY 5 Days 12/05/16 12/06/16 Rx Benzonatate [Tessalon Perles] 100 mg PO Q8HR #30 capsule 12/05/16 12/06/16 Rx HYDROcodone/APAP 5-325 [[place] 1 each PO Q6HR PRN #20 tablet 12/05/16 12/07/16 01 :42 Rx 5-325 mg TAB] Ibuprofen [Motrin 800 MG tab] 800 mg PO Q8HR PRN #30 tablet 12/05/16 12/06/16 Rx Prednisone [predniSONE 10 mg 10 mg PO .TAPER #1 tab.ds.pk 12/05/16 12/06/16 Rx (6-Day Pack, 21 Tabs)] ALBUTEROL Inhaler [ProAir HFA 4 puff IH QID PRN #1 inhalation 04/20/17 Unknown Rx Inhaler] predniSONE [Deltasone] 20 mg PO BID #10 tab 04/20/17 Unknown Rx Allergies Allergy/AdvReac Type Severity Reaction Status Date / Time No Known Allergies Allergy Verified 07/23/16 13:39 Heart Score - HEART Score History: Slightly suspicious EKG: Normal Age: < 45 Troponin: < normal limit ED Review of Systems ROS: Stated complaint: VAGINAL BLEEDING,WEAK ,SOB Other details as noted in HPI Comment: unable to obtain as the patient eloped ED Past Medical Hx - Past Medical History Hx Hypertension: No Hx Congestive Heart Failure: Yes Hx Diabetes: Yes Hx Deep Vein Thrombosis: No Hx Pulmonary Embolism: No Hx GERD: No Hx Liver Disease: No Hx Sickle Cell Disease: No Hx Asthma: Yes (intubated x 7) Hx COPD: Yes Hx Tuberculosis: No Hx HIV: No Additional medical history: Cardiac catheterization-normal 2011. Morbid obesity. Cholelithiasis. FIBROIDS X 3 - Surgical History Hx Coronary Stent: No Hx Open Heart Surgery: Yes Hx Internal Defibrillator: No Hx Cholecystectomy: No Hx Appendectomy: No Hx Breast Surgery: No - Social History Smoking Status: Never Smoker Substance Use Type: None - Medications Home Medications: Home Medications Medication Instructions Recorded Confirmed Last Taken Type Albuterol *Only Ed* [Proventil 2.5 mg IH Q6H PRN 08/16/15 12/07/16 12/06/16 History 0.5% NEBS] predniSONE [Deltasone] 50 mg PO QDAY #5 tab 08/16/15 12/07/16 12/06/16 Rx ALBUTEROL Inhaler [ProAir HFA 2 puff IH QID PRN #1 inhalation 03/12/16 12/07/16 12/06/16 Rx Inhaler] predniSONE [Deltasone] 10 mg PO .TAPER #21 tab 03/12/16 12/07/16 12/06/16 Rx Docusate Sodium [Colace CAP] 100 mg PO BID PRN #20 capsule 07/23/16 12/07/16 Rx Ferrous Sulfate [Feosol 325 MG tab] 325 mg PO QDAY #30 tablet 07/23/16 12/07/16 12/06/16 Rx medroxyPROGESTERone ACETATE 10 mg PO QDAY #10 tablet 07/23/16 12/07/16 12/06/16 Rx [Provera] Azithromycin [Zithromax Z-PATO] 1 dose PO DAILY 5 Days 12/05/16 12/07/16 Rx Benzonatate [Tessalon Perles] 100 mg PO Q8HR #30 capsule 12/05/16 12/07/1612/06 Rx HYDROcodone/APAP 5-325 [[place] 1 each PO Q6HR PRN #20 tablet 12/05/16 12/07/16 01:42 Rx 5-325 mg TAB] Ibuprofen [Motrin 800 MG tab] 800 mg PO Q8HR PRN #30 tablet 12/05/16 12/07/16 Rx Prednisone [predniSONE 10 mg 10 mg PO .TAPER #1 tab.ds.pk 12/05/16 12/07/16 Rx (6-Day Pack, 21 Tabs)] ALBUTEROL Inhaler [ProAir HFA 4 puff IH QID PRN #1 inhalation 04/20/17 Unknown Rx Inhaler] predniSONE [Deltasone] 20 mg PO BID #10 tab 04/20/17 Unknown Rx ED Physical Exam - General Limitations: No Limitations ED Course Vital Signs 06/17/17 12:32 Temperature 98.5 F Pulse Rate 73 Respiratory 18 Rate Blood Pressure 118/79 [Right] O2 Sat by Pulse 99 Oximetry MARLEN score - Marlen Score Age > 65: (0) No Aspirin use within the Past 7 Days: (0) No 3 or more CAD Risk Factors: (0) No 2 or more Angina events in past 24 hrs: (0) No Known CAD with more than 50% Stenosis: (0) No Elevated Cardiac Markers: (0) No ST Deviation Greater than 0.5mm: (0) No MARLEN Score: 0 ED Medical Decision Making - Lab Data Result diagrams: 06/17/17 12:46 06/17/17 12:46 - Medical Decision Making A/P: Elopement 1-I was unable to obtain any clinical information as the patient eloped 2-I called the listed cell phone number but received no response Critical care attestation.: If time is entered above; I have spent that time in minutes in the direct care of this critically ill patient, excluding procedure time. ED Disposition Disposition: ELOPED Is pt being admited?: No Does the pt Need Aspirin: No Condition: Undetermined Referrals: PRIMARY CARE, [Primary Care Provider] - 3-5 Days
== END 2017-06-17 12:46 | disposition left against medical advice (07) ==
LOC: ED 12:08
DX: N93.9 Abnormal uterine and vaginal bleeding, unspecified (principal); Z53.21 Procedure and treatment not carried out due to patient leaving prior to being seen by health care provider
CPT/HCPCS: 36415; 80053; 84702; 85025; 85610; 85730; 86850; 86900; 86901

== ENCOUNTER 2017-07-03 09:34 | Emergency (ER) | payer MEDICAID, OTHER ==
[2017-07-03 10:06] LABS: Basophils % (Auto) 0.8 % (0.0-1.8); Eosinophils % (Auto) 1.5 % (0.0-4.3); Hemoglobin 9.8 gm/dl (10.1-14.3); Mean Corpuscular HGB Conc 31 % (30-34); Mean Corpuscular Hemoglobin 23 pg (28-32); Mean Corpuscular Volume 76 fl (79-97); Platelet Count 352 K/mm3 (140-440); Red Blood Count 4.21 M/mm3 (3.65-5.03); Red Cell Distribution Width 18.9 % (13.2-15.2); White Blood Count 7.8 K/mm3 (4.5-11.0)
[2017-07-03 10:23] LABS: Alanine Aminotransferase 22 units/L (7-56); Albumin 3.8 g/dL (3.9-5); Albumin/Globulin Ratio 1.1 %; Alkaline Phosphatase 64 units/L (35-129); Anion Gap 14 mmol/L; BUN/Creatinine Ratio 16; Bilirubin,Total < 0.20 mg/dL (0.1-1.2); Blood Urea Nitrogen 11 mg/dL (7-17); Calcium 8.7 mg/dL (8.4-10.2); Carbon Dioxide 29 mmol/L (22-30); Chloride 99.7 mmol/L (98-107); Glucose 93 mg/dL (65-100); Lipase 15 units/L (13-60); Potassium 4.4 mmol/L (3.6-5.0); Sodium 138 mmol/L (137-145); Total Protein 7.4 g/dL (6.3-8.2)
[2017-07-03 10:45] LABS: Bilirubin,Urine NEG (Negative); Blood,Urine MOD (Negative); Ketones,Urine NEG (Negative); Leukocyte Esterase,Urine TR (Negative); Mucus,Urine FEW /HPF; Nitrite,Urine NEG (Negative); Protein,Urine <15 mg/dL mg/dL (Negative); Urobilinogen,Urine < 2.0 mg/dL (<2.0)
[2017-07-03] MEDS ORDERED: MOTRIN PO ONE (11:32)
[2017-07-03] MEDS ORDERED: TYLENOL PO ONE (11:32)
--- NOTE | 2017-07-03 11:43 | Emergency Department Report ---
ED General Adult HPI - General Chief complaint: Abdominal Pain Stated complaint: ABDOMINAL PAIN, SWOLLEN Time Seen by Provider: 07/03/17 11:18 Source: patient, RN notes reviewed, old records reviewed Mode of arrival: Ambulatory Limitations: No Limitations - History of Present Illness Initial comments: This is a 41-year-old female who was previously unknown to this provider. Patient reports a past medical history of COPD, obesity, obesity hypoventilation syndrome, obstructive sleep apnea, reports noncompliance with nighttime positive pressure ventilation secondary to insurance issues. Patient recently got insurance, and reports that she came in to get checked out for multiple issues and complaints. Patient complains of bilateral lower extremity swelling for 3-4 months. She also describes 2 months of intermittent vaginal bleeding. She complains of pain in her abdominal pannus, and swelling, also for 3-4 months. There is no chest pain. There is chronic shortness of breath which is not a new, worsening or different. The shortness of breath worsens with physical exertion and using the restroom, and it decreases with rest. Does not take control tablets, no recent surgeries, no recent trips or hospitalizations, patient seen for similar symptoms at this hospital November 2016 , had an echocardiogram which demonstrated an ejection fraction of 50-55%, CT scan of the chest which was negative for pulmonary embolus Patient endorses that her symptoms are not really new today, but she is coming in to get plugged in as she recently acquired insurance. The patient is taking Provera which was prescribed for her 2 weeks ago for symptomatically and fibroids, she has only been taking in the past week secondary to insurance. She denies irritative and obstructive urinary symptoms. -: Gradual Location: abdomen, pelvis, genitals, left, right, lower extremity Quality: aching Consistency: constant Improves with: rest Worsens with: movement Associated Symptoms: shortness of breath. denies: chest pain - Related Data Home Medications Medication Instructions Recorded Confirmed Last Taken Albuterol *Only Ed* [Proventil 2.5 mg IH Q6H PRN 08/16/15 12/07/16 12/06/16 0.5% NEBS] Previous Rx's Medication Instructions Recorded Last Taken Type predniSONE [Deltasone] 50 mg PO QDAY #5 tab 08/16/15 12/06/16 Rx ALBUTEROL Inhaler [ProAir HFA 2 puff IH QID PRN #1 inhalation 03/12/16 12/06/16 Rx Inhaler] predniSONE [Deltasone] 10 mg PO .TAPER #21 tab 03/12/16 12/06/16 Rx Docusate Sodium [Colace CAP] 100 mg PO BID PRN #20 capsule 07/23/16 12/06/16 Rx Ferrous Sulfate [Feosol 325 MG tab] 325 mg PO QDAY #30 tablet 07/23/16 12/06/16 Rx medroxyPROGESTERone ACETATE 10 mg PO QDAY #10 tablet 07/23/16 12/06/16 Rx [Provera] Azithromycin [Zithromax Z-PATO] 1 dose PO DAILY 5 Days 12/05/16 12/06/16 Rx Benzonatate [Tessalon Perles] 100 mg PO Q8HR #30 capsule 12/05/16 12/06/16 Rx HYDROcodone/APAP 5-325 [[place] 1 each PO Q6HR PRN #20 tablet 12/05/16 12/07/16 01 :42 Rx 5-325 mg TAB] Ibuprofen [Motrin 800 MG tab] 800 mg PO Q8HR PRN #30 tablet 12/05/16 12/06/16 Rx Prednisone [predniSONE 10 mg 10 mg PO .TAPER #1 tab.ds.pk 12/05/16 12/06/16 Rx (6-Day Pack, 21 Tabs)] ALBUTEROL Inhaler [ProAir HFA 4 puff IH QID PRN #1 inhalation 04/20/17 Unknown Rx Inhaler] predniSONE [Deltasone] 20 mg PO BID #10 tab 04/20/17 Unknown Rx Acetaminophen [Tylenol Arthritis] 650 mg PO Q6HR PRN #30 tablet.er 07/03/17 Unknown Rx Albuterol Sulfate [Proair 90 mcg IH Q4HR PRN #2 aer.pow.ba 07/03/17 Unknown Rx Respiclick] Fluticasone/Salmeterol [Advair 2 puff INHALATION BID #1 blst.w.dev 07/03/17 Unknown Rx 250-50 Diskus] Furosemide [Lasix] 20 mg PO QDAY #30 tablet 07/03/17 Unknown Rx Ibuprofen [Motrin] 600 mg PO Q8H PRN #30 tablet 07/03/17 Unknown Rx Allergies Allergy/AdvReac Type Severity Reaction Status Date / Time No Known Allergies Allergy Verified 07/03/17 09:38 ED Review of Systems ROS: Stated complaint: ABDOMINAL PAIN, SWOLLEN Other details as noted in HPI Constitutional: denies: fever Eyes: denies: vision change ENT: denies: epistaxis Respiratory: shortness of breath Cardiovascular: edema. denies: chest pain Gastrointestinal: abdominal pain Genitourinary: as per HPI Musculoskeletal: arthralgia, myalgia Skin: denies: lesions Neurological: as per HPI ED Past Medical Hx - Past Medical History Hx Hypertension: No Hx Congestive Heart Failure: Yes Hx Diabetes: Yes Hx Deep Vein Thrombosis: No Hx Pulmonary Embolism: No Hx GERD: No Hx Liver Disease: No Hx Sickle Cell Disease: No Hx Asthma: Yes (intubated x 7) Hx COPD: Yes Hx Tuberculosis: No Hx HIV: No Additional medical history: Cardiac catheterization-normal 2011. Morbid obesity. Cholelithiasis. FIBROIDS X 3 - Surgical History Hx Coronary Stent: No Hx Open Heart Surgery: Yes Hx Internal Defibrillator: No Hx Cholecystectomy: No Hx Appendectomy: No Hx Breast Surgery: No - Social History Smoking Status: Never Smoker Substance Use Type: None - Medications Home Medications: Home Medications Medication Instructions Recorded Confirmed Last Taken Type Albuterol *Only Ed* [Proventil 2.5 mg IH Q6H PRN 08/16/15 12/07/16 12/06/16 History 0.5% NEBS] predniSONE [Deltasone] 50 mg PO QDAY #5 tab 08/16/15 12/07/16 12/06/16 Rx ALBUTEROL Inhaler [ProAir HFA 2 puff IH QID PRN #1 inhalation 03/12/16 12/07/16 12/06/16 Rx Inhaler] predniSONE [Deltasone] 10 mg PO .TAPER #21 tab 03/12/16 12/07/16 12/06/16 Rx Docusate Sodium [Colace CAP] 100 mg PO BID PRN #20 capsule 07/23/16 12/07/16 Rx Ferrous Sulfate [Feosol 325 MG tab] 325 mg PO QDAY #30 tablet 07/23/16 12/07/16 12/06/16 Rx medroxyPROGESTERone ACETATE 10 mg PO QDAY #10 tablet 07/23/16 12/07/16 12/06/16 Rx [Provera] Azithromycin [Zithromax Z-PATO] 1 dose PO DAILY 5 Days 12/05/16 12/07/16 Rx Benzonatate [Tessalon Perles] 100 mg PO Q8HR #30 capsule 12/05/16 12/07/1612/06 Rx HYDROcodone/APAP 5-325 [[place] 1 each PO Q6HR PRN #20 tablet 12/05/16 12/07/16 01:42 Rx 5-325 mg TAB] Ibuprofen [Motrin 800 MG tab] 800 mg PO Q8HR PRN #30 tablet 12/05/16 12/07/16 Rx Prednisone [predniSONE 10 mg 10 mg PO .TAPER #1 tab.ds.pk 12/05/16 12/07/16 Rx (6-Day Pack, 21 Tabs)] ALBUTEROL Inhaler [ProAir HFA 4 puff IH QID PRN #1 inhalation 04/20/17 Unknown Rx Inhaler] predniSONE [Deltasone] 20 mg PO BID #10 tab 04/20/17 Unknown Rx Acetaminophen [Tylenol Arthritis] 650 mg PO Q6HR PRN #30 tablet.er 07/03/17 Unknown Rx Albuterol Sulfate [Proair 90 mcg IH Q4HR PRN #2 aer.pow.ba 07/03/17 Unknown Rx Respiclick] Fluticasone/Salmeterol [Advair 2 puff INHALATION BID #1 blst.w.dev 07/03/17 Unknown Rx 250-50 Diskus] Furosemide [Lasix] 20 mg PO QDAY #30 tablet 07/03/17 Unknown Rx Ibuprofen [Motrin] 600 mg PO Q8H PRN #30 tablet 07/03/17 Unknown Rx ED Physical Exam - General Limitations: No Limitations General appearance: alert, in no apparent distress - Head Head exam: Present: atraumatic, normocephalic - Eye Eye exam: Present: normal appearance, EOMI. Absent: nystagmus - ENT ENT exam: Present: normal exam, normal orophraynx, mucous membranes moist - Neck Neck exam: Present: normal inspection, full ROM. Absent: tenderness, meningismus - Respiratory Respiratory exam: Present: wheezes. Absent: respiratory distress - Cardiovascular Cardiovascular Exam: Present: regular rate, normal rhythm, normal heart sounds. Absent: bradycardia, tachycardia, irregular rhythm, systolic murmur, diastolic murmur, rubs, gallop - GI/Abdominal GI/Abdominal exam: Present: soft, normal bowel sounds, other (abdominal wall edema is noted. The edema is tender. There is no deep abdominal tenderness. No rebound or guarding, no peritoneal signs). Absent: distended, guarding, rebound, rigid, pulsatile mass - External exam: Present: swelling (genital edema is noted, no redness, pus or streaking). Absent: erythema Speculum exam: Present: other (escorted by nurse Jolie Barbosa). Absent: vaginal bleeding - Extremities Exam Extremities exam: Present: normal inspection, full ROM, normal capillary refill , pedal edema. Absent: calf tenderness - Back Exam Back exam: Present: normal inspection, full ROM. Absent: tenderness, CVA tenderness (L), paraspinal tenderness - Neurological Exam Neurological exam: Present: alert, oriented X3, normal gait, other (Extraocular movements intact. Tongue midline. No facial droop. Facial sensation intact to light touch in the V1, V2, V3 distribution bilaterally. 5 and 5 strength in 4 extremities.. Sensation is intact to light touch in 4 extremities.). Absent : motor sensory deficit - Psychiatric Psychiatric exam: Present: normal affect, normal mood - Skin Skin exam: Present: warm, dry, intact, normal color. Absent: rash ED Course Vital Signs 07/03/17 07/03/17 07/03/17 09:38 11:28 11:30 Temperature 97.8 F Pulse Rate 82 Respiratory 24 Rate Blood Pressure 131/65 O2 Sat by Pulse 99 98 98 Oximetry 07/03/17 07/03/17 07/03/17 11:31 11:32 11:33 Temperature Pulse Rate Respiratory Rate Blood Pressure 102/60 O2 Sat by Pulse 98 97 100 Oximetry 07/03/17 07/03/17 07/03/17 11:34 11:36 11:38 Temperature Pulse Rate Respiratory Rate Blood Pressure 102/60 102/60 102/60 O2 Sat by Pulse 100 98 99 Oximetry 07/03/17 07/03/17 07/03/17 11:40 11:42 11:44 Temperature Pulse Rate Respiratory Rate Blood Pressure 102/60 102/60 102/60 O2 Sat by Pulse 99 97 97 Oximetry 1007/03/17 07/03/17 11:46 11:48 11:50 Temperature Pulse Rate Respiratory Rate Blood Pressure 102/60 102/60 102/60 O2 Sat by Pulse 99 96 99 Oximetry 07/03/17 07/03/17 07/03/17 11:52 11:54 11:56 Temperature Pulse Rate Respiratory Rate Blood Pressure 102/60 102/60 102/60 O2 Sat by Pulse 99 100 100 Oximetry 07/03/17 07/03/17 07/03/17 11:58 12:00 12:01 Temperature Pulse Rate Respiratory 26 H Rate Blood Pressure 102/60 113/61 O2 Sat by Pulse 100 100 Oximetry 07/03/17 07/03/17 07/03/17 12:02 12:04 12:06 Temperature Pulse Rate Respiratory Rate Blood Pressure 113/61 113/61 113/61 O2 Sat by Pulse 100 100 99 Oximetry 07/03/17 07/03/17 07/03/17 12:08 12:10 12:12 Temperature Pulse Rate Respiratory Rate Blood Pressure 113/61 113/61 113/61 O2 Sat by Pulse 99 100 98 Oximetry 07/03/17 07/03/17 07/03/17 12:14 12:16 12:18 Temperature Pulse Rate Respiratory Rate Blood Pressure 113/61 113/61 113/61 O2 Sat by Pulse 100 99 99 Oximetry 07/03/17 07/03/17 07/03/17 12:20 12:22 12:24 Temperature Pulse Rate Respiratory Rate Blood Pressure 113/61 113/61 113/61 O2 Sat by Pulse 99 100 100 Oximetry 07/03/17 07/03/17 07/03/17 12:26 12:28 12:30 Temperature Pulse Rate Respiratory Rate Blood Pressure 113/61 113/61 113/61 O2 Sat by Pulse 100 98 99 Oximetry 07/03/17 07/03/17 07/03/17 12:32 12:34 12:36 Temperature Pulse Rate Respiratory Rate Blood Pressure 113/61 113/61 113/61 O2 Sat by Pulse 99 99 96 Oximetry 07/03/17 07/03/17 07/03/17 12:38 12:40 12:42 Temperature Pulse Rate Respiratory 26 H Rate Blood Pressure 113/61 113/61 113/61 O2 Sat by Pulse 99 99 100 Oximetry 07/03/17 07/03/17 07/03/17 12:44 12:46 12:48 Temperature Pulse Rate Respiratory Rate Blood Pressure 113/61 113/61 113/61 O2 Sat by Pulse 100 98 99 Oximetry 07/03/17 07/03/17 07/03/17 12:50 12:52 12:54 Temperature Pulse Rate Respiratory Rate Blood Pressure 113/61 113/61 113/61 O2 Sat by Pulse 98 100 98 Oximetry 07/03/17 07/03/17 07/03/17 12:56 12:58 13:00 Temperature Pulse Rate Respiratory Rate Blood Pressure 113/61 113/61 110/53 O2 Sat by Pulse 99 99 99 Oximetry 07/03/17 07/03/17 13:01 13:04 Temperature 97.7 F Pulse Rate Respiratory 24 Rate Blood Pressure 110/53 O2 Sat by Pulse 99 Oximetry ED Medical Decision Making - Lab Data Result diagrams: 07/03/17 09:48 07/03/17 09:48 Vital Signs 07/03/17 07/03/17 07/03/17 09:38 11:28 11:30 Temperature 97.8 F Pulse Rate 82 Respiratory 24 Rate Blood Pressure 131/65 O2 Sat by Pulse 99 98 98 Oximetry 07/03/17 07/03/17 07/03/17 11:31 11:32 11:33 Temperature Pulse Rate Respiratory Rate Blood Pressure 102/60 O2 Sat by Pulse 98 97 100 Oximetry 07/03/17 07/03/17 07/03/17 11:34 11:36 11:38 Temperature Pulse Rate Respiratory Rate Blood Pressure 102/60 102/60 102/60 O2 Sat by Pulse 100 98 99 Oximetry 07/03/17 07/03/17 07/03/17 11:40 11:42 11:44 Temperature Pulse Rate Respiratory Rate Blood Pressure 102/60 102/60 102/60 O2 Sat by Pulse 99 97 97 Oximetry 07/03/17 07/03/17 07/03/17 11:46 11:48 11:50 Temperature Pulse Rate Respiratory Rate Blood Pressure 102/60 102/60 102/60 O2 Sat by Pulse 99 96 99 Oximetry 07/03/17 07/03/17 07/03/17 11:52 11:54 11:56 Temperature Pulse Rate Respiratory Rate Blood Pressure 102/60 102/60 102/60 O2 Sat by Pulse 99 100 100 Oximetry 07/03/17 07/03/17 07/03/17 11:58 12:00 12:01 Temperature Pulse Rate Respiratory 26 H Rate Blood Pressure 102/60 113/61 O2 Sat by Pulse 100 100 Oximetry 07/03/17 07/03/17 07/03/17 12:02 12:04 12:06 Temperature Pulse Rate Respiratory Rate Blood Pressure 113/61 113/61 113/61 O2 Sat by Pulse 100 100 99 Oximetry 07/03/17 07/03/17 07/03/17 12:08 12:10 12:12 Temperature Pulse Rate Respiratory Rate Blood Pressure 113/61 113/61 113/61 O2 Sat by Pulse 99 100 98 Oximetry 07/03/17 07/03/17 07/03/17 12:14 12:16 12:18 Temperature Pulse Rate Respiratory Rate Blood Pressure 113/61 113/61 113/61 O2 Sat by Pulse 100 99 99 Oximetry 07/03/17 07/03/17 07/03/17 12:20 12:22 12:24 Temperature Pulse Rate Respiratory Rate Blood Pressure 113/61 113/61 113/61 O2 Sat by Pulse 99 100 100 Oximetry 07/03/17 07/03/17 07/03/17 12:26 12:28 12:30 Temperature Pulse Rate Respiratory Rate Blood Pressure 113/61 113/61 113/61 O2 Sat by Pulse 100 98 99 Oximetry 07/03/17 07/03/17 07/03/17 12:32 12:34 12:36 Temperature Pulse Rate Respiratory Rate Blood Pressure 113/61 113/61 113/61 O2 Sat by Pulse 99 99 96 Oximetry 07/03/17 07/03/17 07/03/17 12:38 12:40 12:42 Temperature Pulse Rate Respiratory 26 H Rate Blood Pressure 113/61 113/61 113/61 O2 Sat by Pulse 99 99 100 Oximetry 07/03/17 07/03/17 07/03/17 12:44 12:46 12:48 Temperature Pulse Rate Respiratory Rate Blood Pressure 113/61 113/61 113/61 O2 Sat by Pulse 100 98 99 Oximetry 07/03/17 07/03/17 07/03/17 12:50 12:52 12:54 Temperature Pulse Rate Respiratory Rate Blood Pressure 113/61 113/61 113/61 O2 Sat by Pulse 98 100 98 Oximetry 07/03/17 07/03/17 07/03/17 12:56 12:58 13:00 Temperature Pulse Rate Respiratory Rate Blood Pressure 113/61 113/61 110/53 O2 Sat by Pulse 99 99 99 Oximetry 07/03/17 07/03/17 13:01 13:04 Temperature 97.7 F Pulse Rate Respiratory Rate Blood Pressure 110/53 O2 Sat by Pulse 99 Oximetry Lab Results 07/03/17 07/03/17 07/03/17 Range/Units 09:46 09:46 09:48 WBC 7.8 (4.5-11.0) K/mm3 RBC 4.21 (3.65-5.03) M/mm3 Hgb 9.8 L (10.1-14.3) gm/dl Hct 32.0 (30.3-42.9) % MCV 76 L (79-97) fl MCH 23 L (28-32) pg MCHC 31 (30-34) % RDW 18.9 H (13.2-15.2) % Plt Count 352 (140-440) K/mm3 Lymph % (Auto) 25.5 (13.4-35.0) % [place] % (Auto) 7.2 (0.0-7.3) % Eos % (Auto) 1.5 (0.0-4.3) % Baso % (Auto) 0.8 (0.0-1.8) % Lymph # 2.0 (1.2-5.4) K/mm3 [place] # 0.6 (0.0-0.8) K/mm3 Eos # 0.1 (0.0-0.4) K/mm3 Baso # 0.1 (0.0-0.1) K/mm3 Seg Neutrophils % 65.0 (40.0-70.0) % Seg Neutrophils # 5.1 (1.8-7.7) K/mm3 Sodium (137-145) mmol/L Potassium (3.6-5.0) mmol/L Chloride (98-107) mmol/L Carbon Dioxide (22-30) mmol/L Anion Gap mmol/L BUN (7-17) mg/dL Creatinine (0.7-1.2) mg/dL Estimated GFR ml/min BUN/Creatinine Ratio % Glucose (65-100) mg/dL Calcium (8.4-10.2) mg/dL Total Bilirubin (0.1-1.2) mg/dL AST (5-40) units/L ALT (7-56) units/L Alkaline Phosphatase (35-129) units/L NT-Pro-B Natriuret Pep (0-450) pg/mL Total Protein (6.3-8.2) g/dL Albumin (3.9-5) g/dL Albumin/Globulin Ratio % Lipase (13-60) units/L Urine Color Yellow (Yellow) Urine Turbidity Clear (Clear) Urine pH 5.0 (5.0-7.0) Ur Specific [place] 1.016 (1.003-1.030) Urine Protein <15 mg/dl (Negative) mg/dL Urine Glucose (UA) Neg (Negative) mg/dL Urine Ketones Neg (Negative) mg/dL Urine Blood Mod (Negative) Urine Nitrite Neg (Negative) Urine Bilirubin Neg (Negative) Urine Urobilinogen < 2.0 (<2.0) mg/dL Ur Leukocyte Esterase Tr (Negative) Urine WBC (Auto) 5.0 (0.0-6.0) /HPF Urine RBC (Auto) 1.0 (0.0-6.0) /HPF U Epithel Cells (Auto) 2.0 (0-13.0) /HPF Urine Mucus Few /HPF Urine HCG, Qual Negative (Negative) 07/03/17 07/03/17 Range/Units 09:48 09:48 WBC (4.5-11.0) K/mm3 RBC (3.65-5.03) M/mm3 Hgb (10.1-14.3) gm/dl Hct (30.3-42.9) % MCV (79-97) fl MCH (28-32) pg MCHC (30-34) % RDW (13.2-15.2) % Plt Count (140-440) K/mm3 Lymph % (Auto) (13.4-35.0) % [place] % (Auto) (0.0-7.3) % Eos % (Auto) (0.0-4.3) % Baso % (Auto) (0.0-1.8) % Lymph # (1.2-5.4) K/mm3 [place] # (0.0-0.8) K/mm3 Eos # (0.0-0.4) K/mm3 Baso # (0.0-0.1) K/mm3 Seg Neutrophils % (40.0-70.0) % Seg Neutrophils # (1.8-7.7) K/mm3 Sodium 138 (137-145) mmol/L Potassium 4.4 (3.6-5.0) mmol/L Chloride 99.7 (98-107) mmol/L Carbon Dioxide 29 (22-30) mmol/L Anion Gap 14 mmol/L BUN 11 (7-17) mg/dL Creatinine 0.7 (0.7-1.2) mg/dL Estimated GFR > 60 ml/min BUN/Creatinine Ratio 16 % Glucose 93 (65-100) mg/dL Calcium 8.7 (8.4-10.2) mg/dL Total Bilirubin < 0.20 (0.1-1.2) mg/dL AST 15 (5-40) units/L ALT 22 (7-56) units/L Alkaline Phosphatase 64 (35-129) units/L NT-Pro-B Natriuret Pep 58.23 (0-450) pg/mL Total Protein 7.4 (6.3-8.2) g/dL Albumin 3.8 L (3.9-5) g/dL Albumin/Globulin Ratio 1.1 % Lipase 15 (13-60) units/L Urine Color (Yellow) Urine Turbidity (Clear) Urine pH (5.0-7.0) Ur Specific [place] (1.003-1.030) Urine Protein (Negative) mg/dL Urine Glucose (UA) (Negative) mg/dL Urine Ketones (Negative) mg/dL Urine Blood (Negative) Urine Nitrite (Negative) Urine Bilirubin (Negative) Urine Urobilinogen (<2.0) mg/dL Ur Leukocyte Esterase (Negative) Urine WBC (Auto) (0.0-6.0) /HPF Urine RBC (Auto) (0.0-6.0) /HPF U Epithel Cells (Auto) (0-13.0) /HPF Urine Mucus /HPF Urine HCG, Qual (Negative) - EKG Data -: EKG Interpreted by Me - EKG Data 07/03/17 13:12 Normal sinus, 65 bpm, Q waves noted in 1 and aVL, low voltage in V2/V3, abnormal EKG, not morphologically consistent with STEMI, borderline left axis deviation, appears unchanged compared to prior from 04/20/2017 - Radiology Data Radiology results: report reviewed, image reviewed X-ray of the chest is negative for acute disease VASCULAR LAB.PRELIMINARY REPORT.BLE VENOUS DUPLEX DONE BEDSIDE.NO EVIDENCE OF DVT/SVT IN VESSELS VISUALIZED.TECHNICALLY LIMITED DUE TO HABITUS. - Medical Decision Making Differential diagnosis: Abdominal wall edema, lower extremity edema, venous insufficiency, lymphedema, DVT, chronic COPD, pulmonary hypertension Assessment and plan: 41-year-old female with a complaint of 4 months of abdominal discomfort and swelling, lower extremity swelling, and chronic shortness of breath. She does not have an acutely worsened or new complaint, and she does not appear to be acutely decompensated. Patient appears to have the natural progression of morbid obesity, obstructive sleep apnea, COPD, especially with noncompliance with her BiPAP therapy. Her objective laboratory studies are unremarkable, she does not have crackles or rales, she is saturating well, x-ray of the chest not consistent with acute decompensated congestive heart failure, and her laboratory studies corroborate this as well. Low risk by MARLEN score, low risk by heart score given 4 months of symptoms, low risk by well's criteria, ultrasound of the leg initially negative, patient presented with identical symptoms a few months ago, and had a negative CT scan of the chest. Patient and family counseled regarding importance of dietary last modifications , progressive weight loss strategies, compliance with positive pressure ventilation, and appropriate outpatient follow-up. 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 Return precautions are reviewed, patient understands, and is suitable for discharge at this point in time. Critical care attestation.: If time is entered above; I have spent that time in minutes in the direct care of this critically ill patient, excluding procedure time. ED Disposition Clinical Impression: Leg edema, Chronic obstructive pulmonary disease (COPD) Disposition: - TO HOME OR SELFCARE Is pt being admited?: No Does the pt Need Aspirin: No Condition: Stable Instructions: Chronic Obstructive Pulmonary Disease (ED), Leg Edema (ED) Additional Instructions: Take the medications as needed/directed. Follow up with a primary care doctor within the next month. Dr. Todd Jolley is a local primary care doctor. [facility] is a local low cost [facility] Center available for your convenience. Dr. Alonzo Turner is a local lung specialist. "[facility] is a local gynecology group. I recommend physical activity every other day as tolerated, and appropriate diet, including plenty of fruits, fibers , vegetables. I also recommend compliance with your oxygen therapy, as well as her BiPAP machine if it was prescribed 3. Follow up with the primary care doctor or lung doctor within the next month. With a pleat patternmaker within the next 2 months. Return to the ER right away with chest pain, worsening shortness of breath, intractable nausea or vomiting, confusion, inability to tolerate liquid feeds, loss of consciousness, fevers and chills. Prescriptions: Acetaminophen [Tylenol Arthritis] 650 mg PO Q6HR PRN #30 tablet.er PRN Reason: Pain Albuterol Sulfate [Proair Respiclick] 90 mcg IH Q4HR PRN #2 aer.pow.ba PRN Reason: Wheezing Fluticasone/Salmeterol [Advair 250-50 Diskus] 2 puff INHALATION BID #1 blst.w.dev Furosemide [Lasix] 20 mg PO QDAY #30 tablet Ibuprofen [Motrin] 600 mg PO Q8H PRN #30 tablet PRN Reason: Pain Referrals: PRIMARY CARE, [Primary Care Provider] - 3-5 Days JOEY YEAGER MD [Staff Physician] - 3-5 Days ALONZO TURNER MD [Staff Physician] - 3-5 Days [facility] [Provider Group] - 3-5 Days [facility] [Provider Group] - 3-5 Days
[2017-07-03 13:05] VITALS: BP 110/53
--- NOTE | 2017-07-03 13:16 | XRay Report ---
PORTABLE CHEST INDICATION: Dyspnea. COMPARISON: 04/20/2017 FINDINGS: Portable, frontal chest radiograph suggests top normal heart size. Grossly normal mediastinal and hilar contours. Clear lungs, allowing for patient's body habitus. Intact bones. CONCLUSION: No significant acute chest process, as described. Thank you for the opportunity to participate in this patient's care.
--- NOTE | 2017-07-07 15:45 | Vascular Lab Report ---
LOWER EXTREMITY VENOUS DUPLEX: REASON FOR EXAM: Swelling of the lower extremities. COMMENTS ON THE RIGHT: All veins visualized are freely compressible without evidence of internal echogenicity. Flow is spontaneous and phasic throughout. COMMENTS ON THE LEFT: All veins visualized are freely compressible without evidence of internal echogenicity. Flow is spontaneous and phasic throughout. IMPRESSION: No evidence of acute or chronic deep venous thrombosis in either lower extremity.
== END 2017-07-03 13:29 | disposition home or self-care (01) ==
LOC: ED 09:34
DX: R60.0 Localized edema (principal); J44.9 Chronic obstructive pulmonary disease, unspecified; E11.9 Type 2 diabetes mellitus without complications; E66.01 Morbid (severe) obesity due to excess calories
CPT/HCPCS: 36415; 71010; 80053; 81001; 81025; 83690; 83880; 85025; 93005; 93010; 93970; 99284

== ENCOUNTER 2017-11-30 12:17 | Emergency (ER) | payer MEDICAID ==
[2017-11-30 13:57] LABS: Alanine Aminotransferase 16 units/L (7-56); Albumin 3.9 g/dL (3.9-5); BUN/Creatinine Ratio 14; Blood Urea Nitrogen 11 mg/dL (7-17); Calcium 9.5 mg/dL (8.4-10.2); Hemolysis Index 3; Lipase 15 units/L (13-60)
[2017-11-30 14:00] LABS: Bilirubin,Urine NEG (Negative); Blood,Urine LG (Negative); Color,Urine Yellow (Yellow); Mucus,Urine FEW /HPF; Protein,Urine <15 mg/dL mg/dL (Negative); Urobilinogen,Urine < 2.0 mg/dL (<2.0)
[2017-11-30 14:07] LABS: Basophils # (Auto) 0.1 K/mm3 (0.0-0.1); Basophils % (Auto) 0.6 % (0.0-1.8); Eosinophils # (Auto) 0.1 K/mm3 (0.0-0.4); Eosinophils % (Auto) 0.7 % (0.0-4.3); Lymphocytes % (Auto) 22.9 % (13.4-35.0); Mean Corpuscular HGB Conc 30 % (30-34); Mean Corpuscular Volume 79 fl (79-97); Monocytes # (Auto) 0.6 K/mm3 (0.0-0.8); Monocytes % (Auto) 6.5 % (0.0-7.3); Platelet Count 240 K/mm3 (140-440); Red Blood Count 5.42 M/mm3 (3.65-5.03); Red Cell Distribution Width 19.4 % (13.2-15.2)
[2017-11-30 14:08] LABS: Hematocrit 42.7 % (30.3-42.9); Hemoglobin 12.9 gm/dl (10.1-14.3); Mean Corpuscular Hemoglobin 24 pg (28-32)
[2017-11-30] MEDS ORDERED: ZOFRAN ODT PO ONE (20:43)
[2017-11-30] MEDS ORDERED: MORPHINE IM ONE (20:43)
[2017-11-30] MEDS ORDERED: HumuLIN R SUB-Q ONE (20:43)
[2017-11-30] MEDS ORDERED: CATAPRES PO ONE (20:44)
--- NOTE | 2017-11-30 20:44 | Emergency Department Report ---
HPI - General Chief Complaint: Abdominal Pain Time Seen by Provider: 11/30/17 19:51 - HPI HPI: The patient is a 42-year-old female presents for evaluation of abdominal pain. The patient reports abdominal pain for the past one week, constant for the past one day, 10/10 in severity, burning and tightening quality, concentrating to the upper abdomen, and is exacerbated with retching. She also reports associated nausea, nonbilious, nonbloody emesis, and loose watery stools. She shares that she has a history of gallstones. The patient denies fever, chills, night sweats, hematemesis, chest pain, dyspnea, blood in the stool, dark tarry stool, dysuria, hematuria, flank pain, genital discharge, inability to pass flatus. ED Past Medical Hx - Past Medical History Previous Medical History?: Yes Hx Hypertension: No Hx Congestive Heart Failure: Yes Hx Diabetes: Yes Hx Deep Vein Thrombosis: No Hx Pulmonary Embolism: No Hx GERD: No Hx Liver Disease: No Hx Sickle Cell Disease: No Hx Asthma: Yes (intubated x 7) Hx COPD: Yes Hx Tuberculosis: No Hx HIV: No Additional medical history: Cardiac catheterization-normal 2011. Morbid obesity. Cholelithiasis. FIBROIDS X 3 - Surgical History Past Surgical History?: Yes Hx Coronary Stent: No Hx Open Heart Surgery: Yes Hx Internal Defibrillator: No Hx Cholecystectomy: No Hx Appendectomy: No Hx Breast Surgery: No - Social History Smoking Status: Never Smoker - Medications Home Medications: Home Medications Medication Instructions Recorded Confirmed Last Taken Type Albuterol *Only Ed* [Proventil 2.5 mg IH Q6H PRN 08/16/15 12/07/16 12/06/16 History 0.5% NEBS] predniSONE [Deltasone] 50 mg PO QDAY #5 tab 08/16/15 12/07/16 12/06/16 Rx ALBUTEROL Inhaler [ProAir HFA 2 puff IH QID PRN #1 inhalation 03/12/16 12/07/16 12/06/16 Rx Inhaler] predniSONE [Deltasone] 10 mg PO .TAPER #21 tab 03/12/16 12/07/16 12/06/16 Rx Docusate Sodium [Colace CAP] 100 mg PO BID PRN #20 capsule 07/23/16 12/07/16 Rx Ferrous Sulfate [Feosol 325 MG tab] 325 mg PO QDAY #30 tablet 07/23/16 12/07/16 12/06/16 Rx medroxyPROGESTERone ACETATE 10 mg PO QDAY #10 tablet 07/23/16 12/07/16 12/06/16 Rx [Provera] Azithromycin [Zithromax Z-PATO] 1 dose PO DAILY 5 Days tab 12/05/16 12/07/16 Rx Benzonatate [Tessalon Perles] 100 mg PO Q8HR #30 capsule 12/05/16 12/07/1612/06 Rx HYDROcodone/APAP 5-325 [[place] 1 each PO Q6HR PRN #20 tablet 12/05/16 12/07/16 01:42 Rx 5-325 mg TAB] Ibuprofen [Motrin 800 MG tab] 800 mg PO Q8HR PRN #30 tablet 12/05/16 12/07/16 Rx Prednisone [predniSONE 10 mg 10 mg PO .TAPER #1 tab.ds.pk 12/05/16 12/07/16 Rx (6-Day Pack, 21 Tabs)] ALBUTEROL Inhaler [ProAir HFA 4 puff IH QID PRN #1 inhalation 04/20/17 Unknown Rx Inhaler] predniSONE [Deltasone] 20 mg PO BID #10 tab 04/20/17 Unknown Rx Acetaminophen [Tylenol Arthritis] 650 mg PO Q6HR PRN #30 tablet.er 07/03/17 Unknown Rx Albuterol Sulfate [Proair 90 mcg IH Q4HR PRN #2 aer.pow.ba 07/03/17 Unknown Rx Respiclick] Fluticasone/Salmeterol [Advair 2 puff INHALATION BID #1 blst.w.dev 07/03/17 Unknown Rx 250-50 Diskus] Furosemide [Lasix] 20 mg PO QDAY #30 tablet 07/03/17 Unknown Rx Ibuprofen [Motrin] 600 mg PO Q8H PRN #30 tablet 07/03/17 Unknown Rx Cephalexin [Keflex] 500 mg PO QID #30 capsule 11/30/17 Unknown Rx Ondansetron [Zofran TAB] 4 mg PO Q8HR PRN #20 tablet 11/30/17 Unknown Rx Sulfamethoxazole/Trimethoprim 1 each PO BID #20 tablet 11/30/17 Unknown Rx [Bactrim DS TAB] traMADol [Ultram 50 MG tab] 50 mg PO Q6HR PRN #15 tablet 11/30/17 Unknown Rx ED Review of Systems ROS: Stated complaint: R SIDE ABD PAIN Other details as noted in HPI Constitutional: denies: fever ENT: denies: throat or neck pain Respiratory: denies: cough, shortness of breath Cardiovascular: denies: chest pain Endocrine: denies unexplained weight loss or gain Gastrointestinal: reports: abdominal pain, nausea Genitourinary: denies: dysuria Musculoskeletal: denies: leg swelling Skin: denies: rash Neurological: denies: headache Hematological/Lymphatic: denies: easy bleeding or easy bruising Psych: denies sadness or hopelessness Physical Exam - Physical Exam Vital Signs: Vital Signs 11/30/17 13:09 Temperature 98.5 F Pulse Rate 83 Respiratory 18 Rate Blood Pressure 157/103 O2 Sat by Pulse 100 Oximetry Physical Exam: General: well-nourished, well-developed, no acute distress Head: Normocephalic, atraumatic Eyes: normal sclera ENT: Mucous membranes are pink and moist Neck: trachea midline, neck supple, No neck stiffness, no cervical adenopathy Respiratory: Breath sounds equal bilaterally, no wheezing, rales, or rhonchi Cardio: S1 and S2 present, no murmurs, rubs, gallops, capillary refill is brisk Abdomen: Normoactive bowel sounds, soft abdomen, RUQ tenderness to palpation present, no rigidity, no guarding or rebound tenderness Musc: No pitting edema Skin: No rash Neuro: no facial drooping, normal speech Psych: Normal affect ED Course Vital Signs 11/30/17 13:09 Temperature 98.5 F Pulse Rate 83 Respiratory 18 Rate Blood Pressure 157/103 O2 Sat by Pulse 100 Oximetry ED Medical Decision Making - Lab Data Result diagrams: 11/30/17 13:27 11/30/17 13:27 - Medical Decision Making The patient was seen and examined by myself. The patient is placed on a campus monitor and continuous pulse ox. On initial evaluation, the patient was found to be in no distress. Evaluation orders are placed. The patient given IM dose of morphine for pain, Zofran for nausea. lab results exhibited elevated glucose level and otherwise were non-concerning including nml WBC, hemoglobin, hematocrit, renal function, LFTs, lipase, and negative test. the patient is given SC dose of insulin for treatment of her hyperglycemia. The patient was reevaluated and reported that their symptoms were markedly improved. The patient is stable for discharge with outpatient follow-up. The patient is given follow-up and return instructions. The patient expressed understanding and agreed with the plan. The patient is discharged in stable condition. Critical care attestation.: If time is entered above; I have spent that time in minutes in the direct care of this critically ill patient, excluding procedure time. ED Disposition Clinical Impression: Abdominal pain, acute, right upper quadrant, Cellulitis of left lower extremity without foot, Hypertensive urgency Disposition: - TO HOME OR SELFCARE Is pt being admited?: No Does the pt Need Aspirin: No Condition: Stable Instructions: Cellulitis (ED), Abdominal Pain (ED), Hypertension (ED), Biliary Colic (ED) Referrals: MILLA CASAS MD [Staff Physician] - 3-5 Days Time of Disposition: 20:44
[2017-11-30] MEDS ORDERED: KEFLEX PO ONE (22:12)
[2017-11-30] MEDS ORDERED: BACTRIM DS PO ONE (22:12)
[2017-11-30 23:17] VITALS: BP 122/72
== END 2017-11-30 23:17 | disposition home or self-care (01) ==
LOC: ED 12:17
DX: L03.116 Cellulitis of left lower limb (principal); I16.0 Hypertensive urgency; R10.11 Right upper quadrant pain; I50.9 Heart failure, unspecified; E11.9 Type 2 diabetes mellitus without complications; J44.9 Chronic obstructive pulmonary disease, unspecified
CPT/HCPCS: 36415; 80053; 81001; 82962; 83690; 84703; 85025; 96372; 99284; J2270; J1815; Q0162

== ENCOUNTER 2017-12-05 22:35 | Emergency (ER) | payer MEDICAID | END 2017-12-05 22:47 | disposition left against medical advice (07) | LOC: ED 22:35 | DX: R07.9 Chest pain, unspecified (principal); Z53.21 Procedure and treatment not carried out due to patient leaving prior to being seen by health care provider | CPT/HCPCS: 82962 ==

== ENCOUNTER 2017-12-30 23:43 | Emergency (ER) | payer MEDICAID ==
[2017-12-31] MEDS ORDERED: DUONEB *Not for PRN Use IH ONE ×3 (00:04→09:04)
[2017-12-31 00:30] LABS: Basophils # (Auto) 0.1 K/mm3 (0.0-0.1); Basophils % (Auto) 0.8 % (0.0-1.8); Eosinophils # (Auto) 0.1 K/mm3 (0.0-0.4); Eosinophils % (Auto) 1.4 % (0.0-4.3); Hematocrit 35.4 % (30.3-42.9); Hemoglobin 11.4 gm/dl (10.1-14.3); Lymphocytes # (Auto) 2.6 K/mm3 (1.2-5.4); Lymphocytes % (Auto) 30.9 % (13.4-35.0); Mean Corpuscular HGB Conc 32 % (30-34); Mean Corpuscular Volume 80 fl (79-97); Monocytes # (Auto) 0.5 K/mm3 (0.0-0.8); Monocytes % (Auto) 5.4 % (0.0-7.3); Platelet Count 243 K/mm3 (140-440); Red Blood Count 4.45 M/mm3 (3.65-5.03); Red Cell Distribution Width 18.3 % (13.2-15.2)
[2017-12-31 00:33] LABS: Mean Corpuscular Hemoglobin 26 pg (28-32)
[2017-12-31 00:48] LABS: BUN/Creatinine Ratio 14; Blood Urea Nitrogen 10 mg/dL (7-17); Calcium 8.9 mg/dL (8.4-10.2); Hemolysis Index 58
--- NOTE | 2017-12-31 01:48 | XRay Report ---
FINAL REPORT PROCEDURE: XR CHEST ROUTINE 2V TECHNIQUE: PA and lateral chest radiographs were obtained. CPT 94983 HISTORY: Shortness of breath COMPARISON: No prior studies are available for comparison. FINDINGS: Heart: Normal. Mediastinum/Vessels: Normal. Lungs/Pleural space: Normal. Bony thorax: No acute osseous abnormality. Other: IMPRESSION: Normal examination.
--- NOTE | 2017-12-31 06:48 | Emergency Department Report ---
ED Shortness of Breath HPI - General Chief Complaint: Dyspnea/Respdistress Stated Complaint: SOB Time Seen by Provider: 12/31/17 06:09 Source: patient Mode of arrival: Ambulatory Limitations: No Limitations - History of Present Illness Initial Comments: COPD with shortness of breath evaluation. Patient doesn't chronic lung disease does take albuterol and prednisone. She was here for wheezes with some shortness of breath past medical history was COPD and asthma. She did deny chest pain she does admit to chronic bilateral leg swelling she had all her wheezes with rash to her distress at triage on arrival pulse rate was normal temp was normal her saturation was normal blood pressure was normal MD Complaint: shortness of breath, "asthma attack" -: Gradual Consistency: intermittent Improves With: nothing Worsens With: nothing Known History Of: COPD, asthma Associated Symptoms: denies other symptoms - Related Data Home Medications Medication Instructions Recorded Confirmed Last Taken Albuterol *Only Ed* [Proventil 2.5 mg IH Q6H PRN 08/16/15 12/07/16 12/06/16 0.5% NEBS] Previous Rx's Medication Instructions Recorded Last Taken Type predniSONE [Deltasone] 50 mg PO QDAY #5 tab 08/16/15 12/06/16 Rx ALBUTEROL Inhaler [ProAir HFA 2 puff IH QID PRN #1 inhalation 03/12/16 12/06/16 Rx Inhaler] predniSONE [Deltasone] 10 mg PO .TAPER #21 tab 03/12/16 12/06/16 Rx Docusate Sodium [Colace CAP] 100 mg PO BID PRN #20 capsule 07/23/16 12/06/16 Rx Ferrous Sulfate [Feosol 325 MG tab] 325 mg PO QDAY #30 tablet 07/23/16 12/06/16 Rx medroxyPROGESTERone ACETATE 10 mg PO QDAY #10 tablet 07/23/16 12/06/16 Rx [Provera] Azithromycin [Zithromax Z-PATO] 1 dose PO DAILY 5 Days tab 12/05/16 12/06/16 Rx Benzonatate [Tessalon Perles] 100 mg PO Q8HR #30 capsule 12/05/16 12/06/16 Rx HYDROcodone/APAP 5-325 [[place] 1 each PO Q6HR PRN #20 tablet 12/05/16 12/07/16 01 :42 Rx 5-325 mg TAB] Ibuprofen [Motrin 800 MG tab] 800 mg PO Q8HR PRN #30 tablet 12/05/16 12/06/16 Rx Prednisone [predniSONE 10 mg 10 mg PO .TAPER #1 tab.ds.pk 12/05/16 12/06/16 Rx (6-Day Pack, 21 Tabs)] ALBUTEROL Inhaler [ProAir HFA 4 puff IH QID PRN #1 inhalation 04/20/17 Unknown Rx Inhaler] predniSONE [Deltasone] 20 mg PO BID #10 tab 04/20/17 Unknown Rx Acetaminophen [Tylenol Arthritis] 650 mg PO Q6HR PRN #30 tablet.er 07/03/17 Unknown Rx Albuterol Sulfate [Proair 90 mcg IH Q4HR PRN #2 aer.pow.ba 07/03/17 Unknown Rx Respiclick] Fluticasone/Salmeterol [Advair 2 puff INHALATION BID #1 blst.w.dev 07/03/17 Unknown Rx 250-50 Diskus] Furosemide [Lasix] 20 mg PO QDAY #30 tablet 07/03/17 Unknown Rx Ibuprofen [Motrin] 600 mg PO Q8H PRN #30 tablet 07/03/17 Unknown Rx Cephalexin [Keflex] 500 mg PO QID #30 capsule 11/30/17 Unknown Rx Ondansetron [Zofran TAB] 4 mg PO Q8HR PRN #20 tablet 11/30/17 Unknown Rx Sulfamethoxazole/Trimethoprim 1 each PO BID #20 tablet 11/30/17 Unknown Rx [Bactrim DS TAB] traMADol [Ultram 50 MG tab] 50 mg PO Q6HR PRN #15 tablet 11/30/17 Unknown Rx Allergies Allergy/AdvReac Type Severity Reaction Status Date / Time No Known Allergies Allergy Verified 07/03/17 09:38 ED Review of Systems ROS: Stated complaint: SOB Other details as noted in HPI Comment: All other systems reviewed and negative Constitutional: denies: diaphoresis, fever, malaise Eyes: denies: eye discharge, vision change ENT: denies: dental pain, hearing loss, epistaxis Respiratory: shortness of breath, wheezing. denies: stridor Cardiovascular: dyspnea on exertion, edema. denies: chest pain, palpitations, orthopnea, syncope, paroxysmal nocturnal dyspnea Gastrointestinal: denies: diarrhea, constipation, hematemesis, melena, hematochezia Musculoskeletal: myalgia. denies: back pain, joint swelling, arthralgia Neurological: denies: headache, weakness, numbness, paresthesias, confusion, abnormal gait Hematological/Lymphatic: denies: easy bruising, swollen glands ED Past Medical Hx - Past Medical History Previous Medical History?: Yes Hx Hypertension: No Hx Congestive Heart Failure: Yes Hx Diabetes: Yes Hx Deep Vein Thrombosis: No Hx Pulmonary Embolism: No Hx GERD: No Hx Liver Disease: No Hx Sickle Cell Disease: No Hx Asthma: Yes (intubated x 7) Hx COPD: Yes Hx Tuberculosis: No Hx HIV: No Additional medical history: Cardiac catheterization-normal 2011. Morbid obesity. Cholelithiasis. FIBROIDS X 3 - Surgical History Hx Coronary Stent: No Hx Open Heart Surgery: Yes Hx Internal Defibrillator: No Hx Cholecystectomy: No Hx Appendectomy: No Hx Breast Surgery: No - Social History Smoking Status: Former Smoker Substance Use Type: Marijuana - Medications Home Medications: Home Medications Medication Instructions Recorded Confirmed Last Taken Type Albuterol *Only Ed* [Proventil 2.5 mg IH Q6H PRN 08/16/15 12/07/16 12/06/16 History 0.5% NEBS] predniSONE [Deltasone] 50 mg PO QDAY #5 tab 08/16/15 12/07/16 12/06/16 Rx ALBUTEROL Inhaler [ProAir HFA 2 puff IH QID PRN #1 inhalation 03/12/16 12/07/16 12/06/16 Rx Inhaler] predniSONE [Deltasone] 10 mg PO .TAPER #21 tab 03/12/16 12/07/16 12/06/16 Rx Docusate Sodium [Colace CAP] 100 mg PO BID PRN #20 capsule 07/23/16 12/07/16 Rx Ferrous Sulfate [Feosol 325 MG tab] 325 mg PO QDAY #30 tablet 07/23/16 12/07/16 12/06/16 Rx medroxyPROGESTERone ACETATE 10 mg PO QDAY #10 tablet 07/23/16 12/07/16 12/06/16 Rx [Provera] Azithromycin [Zithromax Z-PATO] 1 dose PO DAILY 5 Days tab 12/05/16 12/07/16 Rx Benzonatate [Tessalon Perles] 100 mg PO Q8HR #30 capsule 12/05/16 12/07/1612/06 Rx HYDROcodone/APAP 5-325 [[place] 1 each PO Q6HR PRN #20 tablet 12/05/16 12/07/16 01:42 Rx 5-325 mg TAB] Ibuprofen [Motrin 800 MG tab] 800 mg PO Q8HR PRN #30 tablet 12/05/16 12/07/16 Rx Prednisone [predniSONE 10 mg 10 mg PO .TAPER #1 tab.ds.pk 12/05/16 12/07/16 Rx (6-Day Pack, 21 Tabs)] ALBUTEROL Inhaler [ProAir HFA 4 puff IH QID PRN #1 inhalation 04/20/17 Unknown Rx Inhaler] predniSONE [Deltasone] 20 mg PO BID #10 tab 04/20/17 Unknown Rx Acetaminophen [Tylenol Arthritis] 650 mg PO Q6HR PRN #30 tablet.er 07/03/17 Unknown Rx Albuterol Sulfate [Proair 90 mcg IH Q4HR PRN #2 aer.pow.ba 07/03/17 Unknown Rx Respiclick] Fluticasone/Salmeterol [Advair 2 puff INHALATION BID #1 blst.w.dev 07/03/17 Unknown Rx 250-50 Diskus] Furosemide [Lasix] 20 mg PO QDAY #30 tablet 07/03/17 Unknown Rx Ibuprofen [Motrin] 600 mg PO Q8H PRN #30 tablet 07/03/17 Unknown Rx Cephalexin [Keflex] 500 mg PO QID #30 capsule 11/30/17 Unknown Rx Ondansetron [Zofran TAB] 4 mg PO Q8HR PRN #20 tablet 11/30/17 Unknown Rx Sulfamethoxazole/Trimethoprim 1 each PO BID #20 tablet 11/30/17 Unknown Rx [Bactrim DS TAB] traMADol [Ultram 50 MG tab] 50 mg PO Q6HR PRN #15 tablet 11/30/17 Unknown Rx ED Physical Exam - General Limitations: No Limitations General appearance: alert, in distress, obese, other (mild respiratory distress wheezes) - Head Head exam: Present: atraumatic, normocephalic - Eye Eye exam: Present: normal appearance, PERRL, EOMI - ENT ENT exam: Present: normal exam, normal orophraynx - Neck Neck exam: Present: normal inspection. Absent: tenderness, meningismus - Respiratory Respiratory exam: Present: respiratory distress, wheezes. Absent: stridor, chest wall tenderness, accessory muscle use, prolonged expiratory - Cardiovascular Cardiovascular Exam: Present: regular rate, normal rhythm, normal heart sounds - GI/Abdominal GI/Abdominal exam: Present: soft. Absent: distended, tenderness, guarding, rebound, rigid, mass, pulsatile mass - Extremities Exam Extremities exam: Present: normal capillary refill, pedal edema, calf tenderness - Back Exam Back exam: Present: normal inspection. Absent: CVA tenderness (L), muscle spasm , paraspinal tenderness, vertebral tenderness - Neurological Exam Neurological exam: Present: alert, oriented X3, CN II-XII intact. Absent: motor sensory deficit ED Course Vital Signs 12/30/17 12/31/17 12/31/17 23:57 05:09 07:30 Temperature 98.2 F Pulse Rate 88 76 Respiratory 20 20 14 Rate Blood Pressure 119/78 O2 Sat by Pulse 99 95 94 Oximetry 12/31/17 12/31/17 12/31/17 07:45 08:00 08:51 Temperature Pulse Rate 73 69 91 H Respiratory 21 17 26 H Rate Blood Pressure 125/70 130/88 130/88 O2 Sat by Pulse 94 95 Oximetry 12/31/17 09:00 Temperature Pulse Rate 71 Respiratory 20 Rate Blood Pressure 132/86 O2 Sat by Pulse 99 Oximetry ED Medical Decision Making - Lab Data Result diagrams: 12/31/17 00:07 12/31/17 00:07 - EKG Data -: EKG Interpreted by Az - EKG Data Interpretation: no acute changes 12/31/17 11:38 Normal sinus rhythm no acute ischemic change - Radiology Data Radiology results: report reviewed - Medical Decision Making Patient has bilateral pedal edema she did have a negative Doppler FOR DVT. THIS WAS ORDERED GIVEN HER SHORTNESS OF BREATH. HOWEVER SHE IS IMPROVED WITH NEBULIZERS SYMPTOMS ARE LIKELY RELATED TO HER CHRONIC UNDERLYING LUNG DISEASE. THE LABORATORY STUDIES ARE NEGATIVE INCLUDING 2 NEGATIVE TROPONINS WITH A NONDIAGNOSTIC EKG FOR stable OUTPATIENT FOLLOW-UP requesting a [place] for her chronic arthritic knees stable for discharge with family member Critical care attestation.: If time is entered above; I have spent that time in minutes in the direct care of this critically ill patient, excluding procedure time. ED Disposition Clinical Impression: COPD exacerbation Disposition: TO HOME OR SELFCARE Is pt being admited?: No Condition: Stable Instructions: Chronic Bronchitis (ED), Leg Edema (ED) Additional Instructions: Return if new or alarming symptoms or call 911 Referrals: MAICO HIRSCH MD [Primary Care Provider] - 3-5 Days Time of Disposition: 11:40
[2017-12-31 09:11] VITALS: BP 132/86
[2017-12-31] MEDS ORDERED: NORCO 5/325 ONE (11:35)
[2017-12-31] MEDS ORDERED: NORCO 5/325 PO ONE (11:35)
--- NOTE | 2018-01-06 12:16 | Vascular Lab Report ---
LOWER EXTREMITY VENOUS DUPLEX: REASON FOR EXAM: Pain and swelling of the lower extremities. COMMENTS ON THE RIGHT: All veins visualized are freely compressible without evidence of internal echogenicity. Flow is spontaneous and phasic throughout. COMMENTS ON THE LEFT: All veins visualized are freely compressible without evidence of internal echogenicity. Flow is spontaneous and phasic throughout. IMPRESSION: No evidence of acute or chronic deep venous thrombosis in either lower extremity. The study was somewhat technically limited due to body habitus.
== END 2017-12-31 11:58 | disposition home or self-care (01) ==
LOC: ED 23:43
DX: J44.1 Chronic obstructive pulmonary disease with (acute) exacerbation (principal); E11.9 Type 2 diabetes mellitus without complications; Z87.891 Personal history of nicotine dependence
CPT/HCPCS: 36415; 71046; 80048; 83880; 84484; 84703; 85025; 93005; 93010; 93970; 96374; 99284; J2930

== ENCOUNTER 2018-02-16 15:37 | Emergency (ER) | payer MEDICAID ==
[2018-02-16] MEDS ORDERED: DUONEB *Not for PRN Use IH ONE (22:19)
[2018-02-16] MEDS ORDERED: XOPENEX IH ONE (22:58)
[2018-02-16] MEDS ORDERED: ATROVENT IH ONE (22:58)
--- NOTE | 2018-02-16 23:00 | Emergency Department Report ---
ED Asthma HPI - General Chief Complaint: Adult Asthma Stated Complaint: SOB/COPD Time Seen by Provider: 02/16/18 22:50 Source: patient, family Mode of arrival: Wheelchair Limitations: No Limitations - History of Present Illness MD Complaint: "asthma attack", shortness of breath, other (cough) - Related Data Previous Rx's Medication Instructions Recorded Last Taken Type predniSONE [Deltasone] 50 mg PO QDAY #5 tab 08/16/15 12/06/16 Rx ALBUTEROL Inhaler [ProAir HFA 2 puff IH QID PRN #1 inhalation 03/12/16 12/06/16 Rx Inhaler] predniSONE [Deltasone] 10 mg PO .TAPER #21 tab 03/12/16 12/06/16 Rx Docusate Sodium [Colace CAP] 100 mg PO BID PRN #20 capsule 07/23/16 12/06/16 Rx Ferrous Sulfate [Feosol 325 MG tab] 325 mg PO QDAY #30 tablet 07/23/16 12/06/16 Rx medroxyPROGESTERone ACETATE 10 mg PO QDAY #10 tablet 07/23/16 12/06/16 Rx [Provera] Benzonatate [Tessalon Perles] 100 mg PO Q8HR #30 capsule 12/05/16 12/06/16 Rx HYDROcodone/APAP 5-325 [[place] 1 each PO Q6HR PRN #20 tablet 12/05/16 12/07/16 01 :42 Rx 5-325 mg TAB] Ibuprofen [Motrin 800 MG tab] 800 mg PO Q8HR PRN #30 tablet 12/05/16 12/06/16 Rx Prednisone [predniSONE 10 mg 10 mg PO .TAPER #1 tab.ds.pk 12/05/16 12/06/16 Rx (6-Day Pack, 21 Tabs)] ALBUTEROL Inhaler [ProAir HFA 4 puff IH QID PRN #1 inhalation 04/20/17 Unknown Rx Inhaler] predniSONE [Deltasone] 20 mg PO BID #10 tab 04/20/17 Unknown Rx Acetaminophen [Tylenol Arthritis] 650 mg PO Q6HR PRN #30 tablet.er 07/03/17 Unknown Rx Albuterol Sulfate [Proair 90 mcg IH Q4HR PRN #2 aer.pow.ba 07/03/17 Unknown Rx Respiclick] Fluticasone/Salmeterol [Advair 2 puff INHALATION BID #1 blst.w.dev 07/03/17 Unknown Rx 250-50 Diskus] Furosemide [Lasix] 20 mg PO QDAY #30 tablet 07/03/17 Unknown Rx Ibuprofen [Motrin] 600 mg PO Q8H PRN #30 tablet 07/03/17 Unknown Rx Cephalexin [Keflex] 500 mg PO QID #30 capsule 11/30/17 Unknown Rx Ondansetron [Zofran TAB] 4 mg PO Q8HR PRN #20 tablet 11/30/17 Unknown Rx Sulfamethoxazole/Trimethoprim 1 each PO BID #20 tablet 11/30/17 Unknown Rx [Bactrim DS TAB] traMADol [Ultram 50 MG tab] 50 mg PO Q6HR PRN #15 tablet 11/30/17 Unknown Rx Albuterol *Only Ed* [Proventil 2.5 mg IH Q6H PRN #1 nebu 12/31/17 Unknown Rx 0.5% NEBS] Azithromycin [Zithromax Z-PATO] 1 dose PO DAILY 5 Days tab 12/31/17 Unknown Rx Prednisone 50 mg PO DAILY #5 tablet 12/31/17 Unknown Rx Allergies Allergy/AdvReac Type Severity Reaction Status Date / Time No Known Allergies Allergy Verified 07/03/17 09:38 ED Review of Systems ROS: Stated complaint: SOB/COPD Other details as noted in HPI ED Past Medical Hx - Past Medical History Hx Hypertension: No Hx Congestive Heart Failure: Yes Hx Diabetes: Yes Hx Deep Vein Thrombosis: No Hx Pulmonary Embolism: No Hx GERD: No Hx Liver Disease: No Hx Sickle Cell Disease: No Hx Asthma: Yes (intubated x 7) Hx COPD: Yes Hx Tuberculosis: No Hx HIV: No Additional medical history: Cardiac catheterization-normal 2011. Morbid obesity. Cholelithiasis. FIBROIDS X 3 - Surgical History Hx Coronary Stent: No Hx Open Heart Surgery: Yes Hx Internal Defibrillator: No Hx Cholecystectomy: No Hx Appendectomy: No Hx Breast Surgery: No - Social History Smoking Status: Never Smoker Substance Use Type: None - Medications Home Medications: Home Medications Medication Instructions Recorded Confirmed Last Taken Type predniSONE [Deltasone] 50 mg PO QDAY #5 tab 08/16/15 12/07/16 12/06/16 Rx ALBUTEROL Inhaler [ProAir HFA 2 puff IH QID PRN #1 inhalation 03/12/16 12/07/16 12/06/16 Rx Inhaler] predniSONE [Deltasone] 10 mg PO .TAPER #21 tab 03/12/16 12/07/16 12/06/16 Rx Docusate Sodium [Colace CAP] 100 mg PO BID PRN #20 capsule 07/23/16 12/07/16 Rx Ferrous Sulfate [Feosol 325 MG tab] 325 mg PO QDAY #30 tablet 07/23/16 12/07/16 12/06/16 Rx medroxyPROGESTERone ACETATE 10 mg PO QDAY #10 tablet 07/23/16 12/07/16 12/06/16 Rx [Provera] Benzonatate [Tessalon Perles] 100 mg PO Q8HR #30 capsule 12/05/16 12/07/1612/06 Rx HYDROcodone/APAP 5-325 [[place] 1 each PO Q6HR PRN #20 tablet 12/05/16 12/07/16 01:42 Rx 5-325 mg TAB] Ibuprofen [Motrin 800 MG tab] 800 mg PO Q8HR PRN #30 tablet 12/05/16 12/07/16 Rx Prednisone [predniSONE 10 mg 10 mg PO .TAPER #1 tab.ds.pk 12/05/16 12/07/16 Rx (6-Day Pack, 21 Tabs)] ALBUTEROL Inhaler [ProAir HFA 4 puff IH QID PRN #1 inhalation 04/20/17 Unknown Rx Inhaler] predniSONE [Deltasone] 20 mg PO BID #10 tab 04/20/17 Unknown Rx Acetaminophen [Tylenol Arthritis] 650 mg PO Q6HR PRN #30 tablet.er 07/03/17 Unknown Rx Albuterol Sulfate [Proair 90 mcg IH Q4HR PRN #2 aer.pow.ba 07/03/17 Unknown Rx Respiclick] Fluticasone/Salmeterol [Advair 2 puff INHALATION BID #1 blst.w.dev 07/03/17 Unknown Rx 250-50 Diskus] Furosemide [Lasix] 20 mg PO QDAY #30 tablet 07/03/17 Unknown Rx Ibuprofen [Motrin] 600 mg PO Q8H PRN #30 tablet 07/03/17 Unknown Rx Cephalexin [Keflex] 500 mg PO QID #30 capsule 11/30/17 Unknown Rx Ondansetron [Zofran TAB] 4 mg PO Q8HR PRN #20 tablet 11/30/17 Unknown Rx Sulfamethoxazole/Trimethoprim 1 each PO BID #20 tablet 11/30/17 Unknown Rx [Bactrim DS TAB] traMADol [Ultram 50 MG tab] 50 mg PO Q6HR PRN #15 tablet 11/30/17 Unknown Rx Albuterol *Only Ed* [Proventil 2.5 mg IH Q6H PRN #1 nebu 12/31/17 Unknown Rx 0.5% NEBS] Azithromycin [Zithromax Z-PATO] 1 dose PO DAILY 5 Days tab 12/31/17 Unknown Rx Prednisone 50 mg PO DAILY #5 tablet 12/31/17 Unknown Rx ED Physical Exam - General Limitations: No Limitations ED Course Vital Signs 02/16/18 02/16/18 02/16/18 15:51 16:16 16:24 Temperature 99 F Pulse Rate 99 H Pulse Rate [ 114 H Bilateral] Pulse Rate [ 120 H Throughout] Respiratory 24 Rate Respiratory 20 Rate [Bilateral ] Respiratory 18 Rate [ Throughout] Blood Pressure 110/68 O2 Sat by Pulse 89 96 Oximetry 02/16/18 02/16/18 22:20 22:30 Temperature Pulse Rate Pulse Rate [ Bilateral] Pulse Rate [ 85 90 Throughout] Respiratory Rate Respiratory Rate [Bilateral ] Respiratory 22 20 Rate [ Throughout] Blood Pressure O2 Sat by Pulse Oximetry - Reevaluation(s) Reevaluation #1: 02/16/18 23:01 Patient was given Atrovent times one nebulizer in triage area. She still wheezes and so we'll order Xopenex, Atrovent nebulizer, chest x-ray and Solu- Medrol 125 mg IV. We'll reevaluate. Critical care attestation.: If time is entered above; I have spent that time in minutes in the direct care of this critically ill patient, excluding procedure time. ED Disposition Condition: Stable Referrals: RUDDY PARKER MD [Primary Care Provider] - 3-5 Days
--- NOTE | 2018-02-16 23:10 | Emergency Department Report ---
Blank Doc - Documentation Documentation: Medical screening note HPI This is a 42-year-old female very obese and she is on O2 which she wears continuously and obviously short of breath with exertion. She said she is with asthma attack and her sat is 89% on 2 L nasal cannula and is usually 95%. 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 She has been intubated 7 times. She has a history of congestive heart failure COPD diabetes morbid obesity and gallstones. She denies any chest pain but reports shortness of breath and exertion with cough and and wheezing. Physical exam Lungs: Wheezes in to lung smith, congested cough increased work of breathing, she is on O2 at 2 L and her sat after DuoNeb 1 is at 96%. Her sat does drop to 89 with walking. CV: S1, S2. Regular rate and rhythm Plan Patient to be seen by tj rogers M.D. Labs order, patient received DuoNeb treatment and will receive Xopenex and Atrovent with Solu-Medrol iv Chest x-ray ordered.
[2018-02-16] MEDS ORDERED: MAGNESIUM SULFATE 2GM/50ML 2 GM/50 ML BAG IV ONE (23:15)
--- NOTE | 2018-02-16 23:29 | XRay Report ---
FINAL REPORT PROCEDURE: XR CHEST ROUTINE 2V TECHNIQUE: PA and lateral chest radiographs were obtained. CPT 36378 HISTORY: sobe, on o2 wheezing.copd COMPARISON: No prior studies are available for comparison. FINDINGS: Heart: Normal. Mediastinum/Vessels: Normal. Lungs/Pleural space: Normal. Bony thorax: No acute osseous abnormality. Other: IMPRESSION: Normal examination.
--- NOTE | 2018-02-16 23:39 | Emergency Department Report ---
ED Shortness of Breath HPI - General Chief Complaint: Adult Asthma Stated Complaint: SOB/COPD Time Seen by Provider: 02/16/18 22:50 Source: patient Mode of arrival: Wheelchair Limitations: No Limitations - History of Present Illness MD Complaint: shortness of breath -: Gradual Severity: moderate Pain Scale: 5 Improves With: oxygen Worsens With: exertion Known History Of: COPD Associated Symptoms: denies other symptoms Treatments Prior to Arrival: oxygen, bronchodilator - Related Data Previous Rx's Medication Instructions Recorded Last Taken Type predniSONE [Deltasone] 50 mg PO QDAY #5 tab 08/16/15 12/06/16 Rx ALBUTEROL Inhaler [ProAir HFA 2 puff IH QID PRN #1 inhalation 03/12/16 12/06/16 Rx Inhaler] predniSONE [Deltasone] 10 mg PO .TAPER #21 tab 03/12/16 12/06/16 Rx Docusate Sodium [Colace CAP] 100 mg PO BID PRN #20 capsule 07/23/16 12/06/16 Rx Ferrous Sulfate [Feosol 325 MG tab] 325 mg PO QDAY #30 tablet 07/23/16 12/06/16 Rx medroxyPROGESTERone ACETATE 10 mg PO QDAY #10 tablet 07/23/16 12/06/16 Rx [Provera] Benzonatate [Tessalon Perles] 100 mg PO Q8HR #30 capsule 12/05/16 12/06/16 Rx HYDROcodone/APAP 5-325 [[place] 1 each PO Q6HR PRN #20 tablet 12/05/16 12/07/16 01 :42 Rx 5-325 mg TAB] Ibuprofen [Motrin 800 MG tab] 800 mg PO Q8HR PRN #30 tablet 12/05/16 12/06/16 Rx Prednisone [predniSONE 10 mg 10 mg PO .TAPER #1 tab.ds.pk 12/05/16 12/06/16 Rx (6-Day Pack, 21 Tabs)] ALBUTEROL Inhaler [ProAir HFA 4 puff IH QID PRN #1 inhalation 04/20/17 Unknown Rx Inhaler] predniSONE [Deltasone] 20 mg PO BID #10 tab 04/20/17 Unknown Rx Acetaminophen [Tylenol Arthritis] 650 mg PO Q6HR PRN #30 tablet.er 07/03/17 Unknown Rx Albuterol Sulfate [Proair 90 mcg IH Q4HR PRN #2 aer.pow.ba 07/03/17 Unknown Rx Respiclick] Fluticasone/Salmeterol [Advair 2 puff INHALATION BID #1 blst.w.dev 07/03/17 Unknown Rx 250-50 Diskus] Furosemide [Lasix] 20 mg PO QDAY #30 tablet 07/03/17 Unknown Rx Ibuprofen [Motrin] 600 mg PO Q8H PRN #30 tablet 07/03/17 Unknown Rx Cephalexin [Keflex] 500 mg PO QID #30 capsule 11/30/17 Unknown Rx Ondansetron [Zofran TAB] 4 mg PO Q8HR PRN #20 tablet 11/30/17 Unknown Rx Sulfamethoxazole/Trimethoprim 1 each PO BID #20 tablet 11/30/17 Unknown Rx [Bactrim DS TAB] traMADol [Ultram 50 MG tab] 50 mg PO Q6HR PRN #15 tablet 11/30/17 Unknown Rx Albuterol *Only Ed* [Proventil 2.5 mg IH Q6H PRN #1 nebu 12/31/17 Unknown Rx 0.5% NEBS] Azithromycin [Zithromax Z-PATO] 1 dose PO DAILY 5 Days tab 12/31/17 Unknown Rx Prednisone 50 mg PO DAILY #5 tablet 12/31/17 Unknown Rx ALBUTEROL Inhaler [ProAir HFA 2 puff IH QID PRN #1 inhalation 02/17/18 Unknown Rx Inhaler] ALBUTEROL NEB's [Proventil 0.083% 2.5 mg IH TID PRN #20 neb 02/17/18 Unknown Rx NEBS] Azithromycin [Zithromax TAB] 500 mg PO QDAY #7 tablet 02/17/18 Unknown Rx Allergies Allergy/AdvReac Type Severity Reaction Status Date / Time No Known Allergies Allergy Verified 07/03/17 09:38 ED Review of Systems ROS: Stated complaint: SOB/COPD Other details as noted in HPI Comment: All other systems reviewed and negative Constitutional: denies: chills, fever Eyes: denies: eye pain, vision change ENT: denies: ear pain Respiratory: shortness of breath. denies: cough Cardiovascular: denies: chest pain, palpitations Endocrine: no symptoms reported Gastrointestinal: denies: abdominal pain, nausea, vomiting, diarrhea Genitourinary: denies: urgency, dysuria, frequency Musculoskeletal: denies: back pain, joint swelling Skin: denies: rash, lesions, change in color Neurological: denies: headache, weakness, numbness, paresthesias Psychiatric: denies: anxiety, depression Hematological/Lymphatic: denies: easy bleeding, easy bruising ED Past Medical Hx - Past Medical History Hx Hypertension: No Hx Congestive Heart Failure: Yes Hx Diabetes: Yes Hx Deep Vein Thrombosis: No Hx Pulmonary Embolism: No Hx GERD: No Hx Liver Disease: No Hx Sickle Cell Disease: No Hx Asthma: Yes (intubated x 7) Hx COPD: Yes Hx Tuberculosis: No Hx HIV: No Additional medical history: Cardiac catheterization-normal 2011. Morbid obesity. Cholelithiasis. FIBROIDS X 3 - Surgical History Hx Coronary Stent: No Hx Open Heart Surgery: Yes Hx Internal Defibrillator: No Hx Cholecystectomy: No Hx Appendectomy: No Hx Breast Surgery: No - Social History Smoking Status: Never Smoker Substance Use Type: None - Medications Home Medications: Home Medications Medication Instructions Recorded Confirmed Last Taken Type predniSONE [Deltasone] 50 mg PO QDAY #5 tab 08/16/15 12/07/16 12/06/16 Rx ALBUTEROL Inhaler [ProAir HFA 2 puff IH QID PRN #1 inhalation 03/12/16 12/07/16 12/06/16 Rx Inhaler] predniSONE [Deltasone] 10 mg PO .TAPER #21 tab 03/12/16 12/07/16 12/06/16 Rx Docusate Sodium [Colace CAP] 100 mg PO BID PRN #20 capsule 07/23/16 12/07/16 Rx Ferrous Sulfate [Feosol 325 MG tab] 325 mg PO QDAY #30 tablet 07/23/16 12/07/16 12/06/16 Rx medroxyPROGESTERone ACETATE 10 mg PO QDAY #10 tablet 07/23/16 12/07/16 12/06/16 Rx [Provera] Benzonatate [Tessalon Perles] 100 mg PO Q8HR #30 capsule 12/05/16 12/07/1612/06 Rx HYDROcodone/APAP 5-325 [[place] 1 each PO Q6HR PRN #20 tablet 12/05/16 12/07/16 01:42 Rx 5-325 mg TAB] Ibuprofen [Motrin 800 MG tab] 800 mg PO Q8HR PRN #30 tablet 12/05/16 12/07/16 Rx Prednisone [predniSONE 10 mg 10 mg PO .TAPER #1 tab.ds.pk 12/05/16 12/07/16 Rx (6-Day Pack, 21 Tabs)] ALBUTEROL Inhaler [ProAir HFA 4 puff IH QID PRN #1 inhalation 04/20/17 Unknown Rx Inhaler] predniSONE [Deltasone] 20 mg PO BID #10 tab 04/20/17 Unknown Rx Acetaminophen [Tylenol Arthritis] 650 mg PO Q6HR PRN #30 tablet.er 07/03/17 Unknown Rx Albuterol Sulfate [Proair 90 mcg IH Q4HR PRN #2 aer.pow.ba 07/03/17 Unknown Rx Respiclick] Fluticasone/Salmeterol [Advair 2 puff INHALATION BID #1 blst.w.dev 07/03/17 Unknown Rx 250-50 Diskus] Furosemide [Lasix] 20 mg PO QDAY #30 tablet 07/03/17 Unknown Rx Ibuprofen [Motrin] 600 mg PO Q8H PRN #30 tablet 07/03/17 Unknown Rx Cephalexin [Keflex] 500 mg PO QID #30 capsule 11/30/17 Unknown Rx Ondansetron [Zofran TAB] 4 mg PO Q8HR PRN #20 tablet 11/30/17 Unknown Rx Sulfamethoxazole/Trimethoprim 1 each PO BID #20 tablet 11/30/17 Unknown Rx [Bactrim DS TAB] traMADol [Ultram 50 MG tab] 50 mg PO Q6HR PRN #15 tablet 11/30/17 Unknown Rx Albuterol *Only Ed* [Proventil 2.5 mg IH Q6H PRN #1 nebu 12/31/17 Unknown Rx 0.5% NEBS] Azithromycin [Zithromax Z-PATO] 1 dose PO DAILY 5 Days tab 12/31/17 Unknown Rx Prednisone 50 mg PO DAILY #5 tablet 12/31/17 Unknown Rx ALBUTEROL Inhaler [ProAir HFA 2 puff IH QID PRN #1 inhalation 02/17/18 Unknown Rx Inhaler] ALBUTEROL NEB's [Proventil 0.083% 2.5 mg IH TID PRN #20 neb 02/17/18 Unknown Rx NEBS] Azithromycin [Zithromax TAB] 500 mg PO QDAY #7 tablet 02/17/18 Unknown Rx ED Physical Exam - General Limitations: No Limitations General appearance: alert, in no apparent distress - Head Head exam: Present: atraumatic, normocephalic, normal inspection - Eye Eye exam: Present: normal appearance, PERRL, EOMI Pupils: Present: normal accommodation - ENT ENT exam: Present: normal exam, normal orophraynx, mucous membranes moist - Neck Neck exam: Present: normal inspection, full ROM - Respiratory Respiratory exam: Present: normal lung sounds bilaterally. Absent: respiratory distress, wheezes, rhonchi - Cardiovascular Cardiovascular Exam: Present: regular rate, normal rhythm, normal heart sounds - GI/Abdominal GI/Abdominal exam: Present: soft, distended, normal bowel sounds. Absent: tenderness, guarding, rebound - Extremities Exam Extremities exam: Present: normal inspection, full ROM, normal capillary refill - Back Exam Back exam: Present: normal inspection, full ROM. Absent: tenderness - Neurological Exam Neurological exam: Present: alert, oriented X3, CN II-XII intact - Psychiatric Psychiatric exam: Present: normal affect, normal mood - Skin Skin exam: Present: warm, dry, normal color. Absent: rash ED Course Vital Signs 02/16/18 02/16/18 02/16/18 15:51 16:16 16:24 Temperature 99 F Pulse Rate 99 H Pulse Rate [ 114 H Bilateral] Pulse Rate [ 120 H Throughout] Respiratory 24 Rate Respiratory 20 Rate [Bilateral ] Respiratory 18 Rate [ Throughout] Blood Pressure 110/68 Blood Pressure [Left] O2 Sat by Pulse 89 96 Oximetry 02/16/18 02/16/18 02/17/18 22:20 22:30 00:50 Temperature Pulse Rate Pulse Rate [ Bilateral] Pulse Rate [ 85 90 81 Throughout] Respiratory Rate Respiratory Rate [Bilateral ] Respiratory 22 20 22 Rate [ Throughout] Blood Pressure Blood Pressure [Left] O2 Sat by Pulse Oximetry 02/17/18 02/17/18 01:01 01:13 Temperature Pulse Rate 88 Pulse Rate [ Bilateral] Pulse Rate [ 95 H Throughout] Respiratory 20 Rate Respiratory Rate [Bilateral ] Respiratory 20 Rate [ Throughout] Blood Pressure Blood Pressure 124/64 [Left] O2 Sat by Pulse 93 Oximetry ED Medical Decision Making - Lab Data Result diagrams: 02/16/18 23:42 02/17/18 00:01 - Radiology Data Radiology results: report reviewed, image reviewed - Medical Decision Making Shortness of breath. Critical care attestation.: If time is entered above; I have spent that time in minutes in the direct care of this critically ill patient, excluding procedure time. ED Disposition Clinical Impression: Shortness of breath, COPD exacerbation, Bronchitis Disposition: TO HOME OR SELFCARE Is pt being admited?: No Does the pt Need Aspirin: No Condition: Stable Instructions: Chronic Bronchitis (ED), Chronic Obstructive Pulmonary Disease ( ED) Additional Instructions: Please follow up with your regular doctor tomorrow morning. Return to the ED if your condition worsens. Prescriptions: ALBUTEROL Inhaler [ProAir HFA Inhaler] 2 puff IH QID PRN #1 inhalation PRN Reason: Shortness Of Breath ALBUTEROL NEB's [Proventil 0.083% NEBS] 2.5 mg IH TID PRN #20 neb PRN Reason: Wheezing Azithromycin [Zithromax TAB] 500 mg PO QDAY #7 tablet Referrals: RUDDY PARKER MD [Primary Care Provider] - 3-5 Days Time of Disposition: 01:37
[2018-02-17 00:04] LABS: Basophils % (Auto) 0.5 % (0.0-1.8); Eosinophils # (Auto) 0.2 K/mm3 (0.0-0.4); Hematocrit 36.2 % (30.3-42.9); Hemoglobin 11.2 gm/dl (10.1-14.3); Lymphocytes # (Auto) 1.6 K/mm3 (1.2-5.4); Lymphocytes % (Auto) 22.1 % (13.4-35.0); Mean Corpuscular HGB Conc 31 % (30-34); Mean Corpuscular Volume 80 fl (79-97); Monocytes # (Auto) 0.8 K/mm3 (0.0-0.8); Monocytes % (Auto) 10.7 % (0.0-7.3); Platelet Count 257 K/mm3 (140-440); Red Blood Count 4.53 M/mm3 (3.65-5.03); Red Cell Distribution Width 16.3 % (13.2-15.2)
[2018-02-17 00:09] LABS: Mean Corpuscular Hemoglobin 25 pg (28-32)
[2018-02-17 00:22] LABS: Alanine Aminotransferase 16 units/L (7-56); Albumin 3.6 g/dL (3.9-5); BUN/Creatinine Ratio 14; Blood Urea Nitrogen 11 mg/dL (7-17); Hemolysis Index 3
[2018-02-17] MEDS ORDERED: ZITHROMAX PO ONE (01:39)
[2018-02-17 02:17] VITALS: BP 125/76
== END 2018-02-17 02:17 | disposition home or self-care (01) ==
LOC: ED 15:37
DX: J44.1 Chronic obstructive pulmonary disease with (acute) exacerbation (principal); I50.9 Heart failure, unspecified; E11.9 Type 2 diabetes mellitus without complications
CPT/HCPCS: 36415; 71046; 80053; 82803; 82805; 83880; 84484; 84703; 85025; 85379; 94640; 96365; 96366; 99284; J2930; J3475

== ENCOUNTER 2018-04-08 21:22 | Emergency (ER) | payer MEDICAID ==
[2018-04-08 22:09] VITALS: BP 124/78
[2018-04-08 22:29] LABS: Hematocrit 36.5 % (30.3-42.9); Hemoglobin 11.8 gm/dl (10.1-14.3); Mean Corpuscular HGB Conc 32 % (30-34); Mean Corpuscular Volume 76 fl (79-97); Platelet Count 307 K/mm3 (140-440); Red Blood Count 4.83 M/mm3 (3.65-5.03); Red Cell Distribution Width 17.1 % (13.2-15.2)
[2018-04-08 22:31] LABS: Mean Corpuscular Hemoglobin 24 pg (28-32)
[2018-04-08 22:43] LABS: BUN/Creatinine Ratio 19; Blood Urea Nitrogen 15 mg/dL (7-17); Calcium 9.4 mg/dL (8.4-10.2); Hemolysis Index 53
[2018-04-08 23:03] LABS: Eosinophils % (Manual) 0 % (0.0-4.3); Hypochromasia 1+; Total Cells Counted 100
[2018-04-08 23:04] LABS: Anisocytosis 1+; Large Platelets 1+; Platelet Estimate Consistent w Auto; Poikilocytosis 1+
== END 2018-04-09 00:39 | disposition left against medical advice (07) ==
LOC: ED 21:22
DX: R07.9 Chest pain, unspecified (principal); Z53.21 Procedure and treatment not carried out due to patient leaving prior to being seen by health care provider
CPT/HCPCS: 36415; 80048; 84484; 84703; 85007; 85025; 93005; 93010

== ENCOUNTER 2018-04-26 12:31 | Emergency (ER) | payer MEDICAID ==
[2018-04-26 12:46] VITALS: BP 114/65
[2018-04-26] MEDS ORDERED: MOTRIN PO ONE (13:27)
--- NOTE | 2018-04-26 13:27 | Emergency Department Report ---
ED Lower Extremity HPI - General Chief Complaint: Extremity Injury, Lower Stated Complaint: KNEE SWELLING Time Seen by Provider: 04/26/18 13:26 Source: patient Mode of arrival: Ambulatory Limitations: No Limitations - History of Present Illness Initial Comments: This is a 42-year-old female nontoxic, well nourished in appearance, no acute signs of distress presents to the ED with c/o of left knee/calf pain 1 month. Patient stated she was at home and slipped on water but denies any direct contact of trauma. Patient stated ever since then she has pain in her calf and knee pain. Patient denies any other trauma. Patient denies any numbness, tingling, fever, chills, nausea, vomiting, chest pain, shortness of breath, headache, stiff neck. Patient denies any joint swelling or joint redness. Patient denies decreased range of motion. Patient stated has decreased gait due to pain. Patient denies any allergies. PMH includes asthma, CHF, COPD, diabetes. -: month(s) (1) Injury: Knee: Left Place: home Severity: mild Severity scale (0 -10): 8 Improves With: immobilization Worsens With: weight bearing, movement, palpation Associated Symptoms: able to partially bear weight, ambulatory. denies: snap/ pop sensation, swelling, numbness, tingling, unable to bear weight - Related Data Previous Rx's Medication Instructions Recorded Last Taken Type predniSONE [Deltasone] 50 mg PO QDAY #5 tab 08/16/15 12/06/16 Rx ALBUTEROL Inhaler [ProAir HFA 2 puff IH QID PRN #1 inhalation 03/12/16 12/06/16 Rx Inhaler] predniSONE [Deltasone] 10 mg PO .TAPER #21 tab 03/12/16 12/06/16 Rx Docusate Sodium [Colace CAP] 100 mg PO BID PRN #20 capsule 07/23/16 12/06/16 Rx Ferrous Sulfate [Feosol 325 MG tab] 325 mg PO QDAY #30 tablet 07/23/16 12/06/16 Rx medroxyPROGESTERone ACETATE 10 mg PO QDAY #10 tablet 07/23/16 12/06/16 Rx [Provera] Benzonatate [Tessalon Perles] 100 mg PO Q8HR #30 capsule 12/05/16 12/06/16 Rx HYDROcodone/APAP 5-325 [[place] 1 each PO Q6HR PRN #20 tablet 12/05/16 12/07/16 01 :42 Rx 5-325 mg TAB] Ibuprofen [Motrin 800 MG tab] 800 mg PO Q8HR PRN #30 tablet 12/05/16 12/06/16 Rx Prednisone [predniSONE 10 mg 10 mg PO .TAPER #1 tab.ds.pk 12/05/16 12/06/16 Rx (6-Day Pack, 21 Tabs)] ALBUTEROL Inhaler [ProAir HFA 4 puff IH QID PRN #1 inhalation 04/20/17 Unknown Rx Inhaler] predniSONE [Deltasone] 20 mg PO BID #10 tab 04/20/17 Unknown Rx Acetaminophen [Tylenol Arthritis] 650 mg PO Q6HR PRN #30 tablet.er 07/03/17 Unknown Rx Albuterol Sulfate [Proair 90 mcg IH Q4HR PRN #2 aer.pow.ba 07/03/17 Unknown Rx Respiclick] Fluticasone/Salmeterol [Advair 2 puff INHALATION BID #1 blst.w.dev 07/03/17 Unknown Rx 250-50 Diskus] Furosemide [Lasix] 20 mg PO QDAY #30 tablet 07/03/17 Unknown Rx Ibuprofen [Motrin] 600 mg PO Q8H PRN #30 tablet 07/03/17 Unknown Rx Cephalexin [Keflex] 500 mg PO QID #30 capsule 11/30/17 Unknown Rx Ondansetron [Zofran TAB] 4 mg PO Q8HR PRN #20 tablet 11/30/17 Unknown Rx Sulfamethoxazole/Trimethoprim 1 each PO BID #20 tablet 11/30/17 Unknown Rx [Bactrim DS TAB] traMADol [Ultram 50 MG tab] 50 mg PO Q6HR PRN #15 tablet 11/30/17 Unknown Rx Albuterol *Only Ed* [Proventil 2.5 mg IH Q6H PRN #1 nebu 12/31/17 Unknown Rx 0.5% NEBS] Azithromycin [Zithromax Z-PATO] 1 dose PO DAILY 5 Days tab 12/31/17 Unknown Rx Prednisone 50 mg PO DAILY #5 tablet 12/31/17 Unknown Rx ALBUTEROL Inhaler [ProAir HFA 2 puff IH QID PRN #1 inhalation 02/17/18 Unknown Rx Inhaler] ALBUTEROL NEB's [Proventil 0.083% 2.5 mg IH TID PRN #20 neb 02/17/18 Unknown Rx NEBS] Azithromycin [Zithromax TAB] 500 mg PO QDAY #7 tablet 02/17/18 Unknown Rx Ibuprofen [Motrin] 600 mg PO Q8H PRN #30 tablet 04/26/18 Unknown Rx Allergies Allergy/AdvReac Type Severity Reaction Status Date / Time No Known Allergies Allergy Verified 04/26/18 12:43 ED Review of Systems ROS: Stated complaint: KNEE SWELLING Other details as noted in HPI Constitutional: denies: chills, fever Eyes: denies: eye pain, eye discharge, vision change ENT: denies: ear pain, throat pain Respiratory: denies: cough, shortness of breath, wheezing Cardiovascular: denies: chest pain, palpitations Endocrine: no symptoms reported Gastrointestinal: denies: abdominal pain, nausea, diarrhea Genitourinary: denies: urgency, dysuria, discharge Musculoskeletal: denies: back pain, joint swelling, arthralgia Skin: denies: rash, lesions Neurological: denies: headache, weakness, paresthesias Psychiatric: denies: anxiety, depression Hematological/Lymphatic: denies: easy bleeding, easy bruising ED Past Medical Hx - Past Medical History Hx Hypertension: No Hx Congestive Heart Failure: Yes Hx Diabetes: Yes Hx Deep Vein Thrombosis: No Hx Pulmonary Embolism: No Hx GERD: No Hx Liver Disease: No Hx Sickle Cell Disease: No Hx Asthma: Yes (intubated x 7) Hx COPD: Yes Hx Tuberculosis: No Hx HIV: No Additional medical history: Cardiac catheterization-normal 2011. Morbid obesity. Cholelithiasis. FIBROIDS X 3 - Surgical History Hx Coronary Stent: No Hx Open Heart Surgery: Yes Hx Internal Defibrillator: No Hx Cholecystectomy: No Hx Appendectomy: No Hx Breast Surgery: No - Social History Smoking Status: Never Smoker Substance Use Type: None - Medications Home Medications: Home Medications Medication Instructions Recorded Confirmed Last Taken Type predniSONE [Deltasone] 50 mg PO QDAY #5 tab 08/16/15 12/07/16 12/06/16 Rx ALBUTEROL Inhaler [ProAir HFA 2 puff IH QID PRN #1 inhalation 03/12/16 12/07/16 12/06/16 Rx Inhaler] predniSONE [Deltasone] 10 mg PO .TAPER #21 tab 03/12/16 12/07/16 12/06/16 Rx Docusate Sodium [Colace CAP] 100 mg PO BID PRN #20 capsule 07/23/16 12/07/16 Rx Ferrous Sulfate [Feosol 325 MG tab] 325 mg PO QDAY #30 tablet 07/23/16 12/07/16 12/06/16 Rx medroxyPROGESTERone ACETATE 10 mg PO QDAY #10 tablet 07/23/16 12/07/16 12/06/16 Rx [Provera] Benzonatate [Tessalon Perles] 100 mg PO Q8HR #30 capsule 12/05/16 12/07/1612/06 Rx HYDROcodone/APAP 5-325 [[place] 1 each PO Q6HR PRN #20 tablet 12/05/16 12/07/16 01:42 Rx 5-325 mg TAB] Ibuprofen [Motrin 800 MG tab] 800 mg PO Q8HR PRN #30 tablet 12/05/16 12/07/16 Rx Prednisone [predniSONE 10 mg 10 mg PO .TAPER #1 tab.ds.pk 12/05/16 12/07/16 Rx (6-Day Pack, 21 Tabs)] ALBUTEROL Inhaler [ProAir HFA 4 puff IH QID PRN #1 inhalation 04/20/17 Unknown Rx Inhaler] predniSONE [Deltasone] 20 mg PO BID #10 tab 04/20/17 Unknown Rx Acetaminophen [Tylenol Arthritis] 650 mg PO Q6HR PRN #30 tablet.er 07/03/17 Unknown Rx Albuterol Sulfate [Proair 90 mcg IH Q4HR PRN #2 aer.pow.ba 07/03/17 Unknown Rx Respiclick] Fluticasone/Salmeterol [Advair 2 puff INHALATION BID #1 blst.w.dev 07/03/17 Unknown Rx 250-50 Diskus] Furosemide [Lasix] 20 mg PO QDAY #30 tablet 07/03/17 Unknown Rx Ibuprofen [Motrin] 600 mg PO Q8H PRN #30 tablet 07/03/17 Unknown Rx Cephalexin [Keflex] 500 mg PO QID #30 capsule 11/30/17 Unknown Rx Ondansetron [Zofran TAB] 4 mg PO Q8HR PRN #20 tablet 11/30/17 Unknown Rx Sulfamethoxazole/Trimethoprim 1 each PO BID #20 tablet 11/30/17 Unknown Rx [Bactrim DS TAB] traMADol [Ultram 50 MG tab] 50 mg PO Q6HR PRN #15 tablet 11/30/17 Unknown Rx Albuterol *Only Ed* [Proventil 2.5 mg IH Q6H PRN #1 nebu 12/31/17 Unknown Rx 0.5% NEBS] Azithromycin [Zithromax Z-PATO] 1 dose PO DAILY 5 Days tab 12/31/17 Unknown Rx Prednisone 50 mg PO DAILY #5 tablet 12/31/17 Unknown Rx ALBUTEROL Inhaler [ProAir HFA 2 puff IH QID PRN #1 inhalation 02/17/18 Unknown Rx Inhaler] ALBUTEROL NEB's [Proventil 0.083% 2.5 mg IH TID PRN #20 neb 02/17/18 Unknown Rx NEBS] Azithromycin [Zithromax TAB] 500 mg PO QDAY #7 tablet 02/17/18 Unknown Rx Ibuprofen [Motrin] 600 mg PO Q8H PRN #30 tablet 04/26/18 Unknown Rx ED Physical Exam - General Limitations: No Limitations General appearance: alert, in no apparent distress - Head Head exam: Present: atraumatic, normocephalic - Eye Eye exam: Present: normal appearance Pupils: Present: normal accommodation - ENT ENT exam: Present: normal exam, mucous membranes moist - Neck Neck exam: Present: normal inspection, full ROM - Respiratory Respiratory exam: Present: normal lung sounds bilaterally. Absent: respiratory distress, wheezes, rales, rhonchi, stridor, chest wall tenderness, accessory muscle use, decreased breath sounds, prolonged expiratory - Cardiovascular Cardiovascular Exam: Present: regular rate, normal rhythm, normal heart sounds. Absent: irregular rhythm, systolic murmur, diastolic murmur, rubs, gallop - GI/Abdominal GI/Abdominal exam: Present: soft, normal bowel sounds. Absent: distended, tenderness, guarding, rebound, rigid, diminished bowel sounds - Extremities Exam Extremities exam: Present: normal inspection, full ROM, tenderness, normal capillary refill. Absent: joint swelling, calf tenderness - Expanded Lower Extremity Exam Left Hip exam: Present: normal inspection, full ROM. Absent: tenderness, swelling Upper Leg exam: Present: normal inspection, full ROM. Absent: tenderness, swelling Knee exam: Present: normal inspection, full ROM, tenderness, full knee extension. Absent: swelling, abrasion, laceration, ecchymosis, deformity, crepidus, dislocation, erythema, effusion, pain w/ pronation/supination, posterior draw sign, pain/laxity with valgus, pain/laxity with varus Lower Leg exam: Present: normal inspection, full ROM. Absent: tenderness, swelling, abrasion, laceration, ecchymosis, deformity, crepidus, dislocation, erythema, palpable cord, Loretta's sign Ankle exam: Present: normal inspection, full ROM. Absent: tenderness, swelling Foot/Toe exam: Present: normal inspection, full ROM. Absent: tenderness, swelling Neuro vascular tendon exam: Present: no vascular compromise. Absent: pulse deficit, abnormal cap refill, motor deficit, sensory deficit, tendon deficit, extremity cold to touch, pallor, abnormal 2-point discrimination, decreased fine /light touch, foot drop, peroneal nerve deficit, significant pain with passive ROM of distal joint Gait: Positive: observed and limited by pain - Back Exam Back exam: Present: normal inspection, full ROM - Neurological Exam Neurological exam: Present: alert, oriented X3, normal gait - Psychiatric Psychiatric exam: Present: normal affect, normal mood - Skin Skin exam: Present: warm, dry, intact, normal color. Absent: rash ED Course Vital Signs 04/26/18 12:43 Temperature 98.4 F Pulse Rate 91 H Respiratory 20 Rate Blood Pressure 114/65 O2 Sat by Pulse 96 Oximetry - Reevaluation(s) Reevaluation #1: 04/26/18 14:27 Patient is speaking in full sentences with no signs of distress noted. ED Lower Extremity MDM - Medical Decision Making This is a 42-year-old female that presents with left knee strain. Patient is stable and was examined by me. I referred patient to an orthopedic doctor for further evaluation for possible MRI. X-ray has been obtained and dictated by the radiologist. Patient left AMA before xray results. US doppler negative for DVT/SVT of left lower extremity. Patient is notified of the US report with noted by the patient. Patient does have normal gait with no tenderness and no joint swelling. No ecchymosis. no joint redness or swelling. Not warm to touch. No signs of cellulites present. I was not aware of patient leaving AMA. Critical care attestation.: If time is entered above; I have spent that time in minutes in the direct care of this critically ill patient, excluding procedure time. ED Disposition Clinical Impression: Strain of left knee Qualifiers: Encounter type: initial encounter Qualified Code(s): S86.912A - Strain of unspecified muscle(s) and tendon(s) at lower leg level, left leg, initial encounter Disposition: LEFT AGAINST MED ADVICE Is pt being admited?: No Does the pt Need Aspirin: No Condition: Stable Instructions: Ibuprofen (By mouth), Knee Pain (ED), RICE Therapy (ED) Additional Instructions: Follow-up with a orthopedic doctor in 3-5 days or if symptoms worsen and continue return to emergency room as soon as possible. Prescriptions: Ibuprofen [Motrin] 600 mg PO Q8H PRN #30 tablet PRN Reason: Pain Referrals: PRIMARY CAREMD [Primary Care Provider] - 3-5 Days MATT ARELLANO MD [Staff Physician] - 3-5 Days [facility] [Outside] - 3-[address] [facility] [Outside] - 3-5 Days Forms: Work/School Release Form(ED), AMA Form
--- NOTE | 2018-04-26 16:03 | XRay Report ---
FINAL REPORT EXAM: XR KNEE 3V LT HISTORY: left knee pain TECHNIQUE: 3 views of left knee. PRIORS: None. FINDINGS: Mild medial and patellofemoral joint space narrowing and mild marginal spurring in all 3 joint compartments. No apparent fracture or dislocation. Soft tissues grossly unremarkable. IMPRESSION: 1. No acute osseous abnormality. 2. Degenerative changes.
--- NOTE | 2018-04-27 15:55 | Vascular Lab Report ---
Left Lower Extremity Venous Duplex Study: Reason for Exam: Pain and swelling of the left lower extremity. Comments on the Right: A limited duplex study was done of the proximal veins of the right lower extremity. All veins visualized are freely compressible without evidence of internal echogenicity. Flow is spontaneous and phasic throughout. No evidence of acute or chronic thrombus is seen in any of the vessels visualized. Comments on the Left: All veins visualized are freely compressible without evidence of internal echogenicity. Flow is spontaneous and phasic throughout. No evidence of acute or chronic thrombus is seen in any of the vessels visualized. A soft tissue change in the left knee area is consistent with a Berrios's cyst. Impression: No evidence of acute or chronic deep venous thrombosis in the left lower extremity. A soft tissue change in the left knee area is consistent with a Berrios's cyst.
== END 2018-04-26 16:19 | disposition left against medical advice (07) ==
LOC: ED 12:31
DX: S86.912A Strain of unspecified muscle(s) and tendon(s) at lower leg level, left leg, initial encounter (principal); E11.9 Type 2 diabetes mellitus without complications; J44.9 Chronic obstructive pulmonary disease, unspecified; W01.198A Fall on same level from slipping, tripping and stumbling with subsequent striking against other object, initial encounter; Y93.89 Activity, other specified; Y92.89 Other specified places as the place of occurrence of the external cause; Y99.8 Other external cause status
CPT/HCPCS: 99284

== ENCOUNTER 2020-07-05 20:43 | Inpatient (IN) | payer MEDICAID ==
[2020-07-05] MEDS ORDERED: CEFEPIME/NS 1 GM/100 ML 1 GM/100 ML BAG IV ONE (20:58)
--- NOTE | 2020-07-05 21:02 | Emergency Department Report ---
ED Shortness of Breath HPI - General Chief Complaint: Dyspnea/Respdistress Stated Complaint: CHRIS Time Seen by Provider: 07/05/20 20:43 Source: patient, EMS Limitations: No Limitations - History of Present Illness Initial Comments: Patient is a 44-year-old female that presents emergency room with complaints of shortness of breath and difficulty breathing. Patient recently diagnosed with COPD. Patient brought in by EMS. Report received from EMS. Patient denies chest pain. Patient states her shortness of breath is better with rest and worse with exertion. Patient denies fever and chills. Patient states that she was diagnosed with a URI recently and placed on steroids and antibiotics. Patient states her symptoms are worsening. Patient complains of dry cough. Patient states she is wheezing. Patient denies recent travel. Patient denies recent international travel. Patient denies exposure to the novel coronavirus. Patient denies sick contacts. Patient denies fever and chills. Patient denies diarrhea. Patient denies coming in contact with anybody with symptoms of the novel coronavirus. MD Complaint: shortness of breath - Related Data Previous Rx's Medication Instructions Recorded Last Taken Type RX: predniSONE [Deltasone] 50 mg PO QDAY #5 tab 08/16/15 12/06/16 Rx RX: Albuterol Mdi (or & Nicu Only) 2 puff IH QID PRN #1 inhalation 03/12/16 12/06/16 Rx [ProAir HFA Inhaler] RX: predniSONE [Deltasone] 10 mg PO .TAPER #21 tab 03/12/16 12/06/16 Rx RX: Docusate Sodium [Colace CAP] 100 mg PO BID PRN #20 capsule 07/23/16 12/06/16 Rx RX: Ferrous Sulfate [Feosol 325 MG 325 mg PO QDAY #30 tablet 07/23/16 12/06/16 Rx tab] RX: medroxyPROGESTERone ACETATE 10 mg PO QDAY #10 tablet 07/23/16 12/06/16 Rx [Provera] RX: Benzonatate [Tessalon Perles] 100 mg PO Q8HR #30 capsule 12/05/16 12/06/16 Rx RX: HYDROcodone/APAP 5-325 [[place] 1 each PO Q6HR PRN #20 tablet 12/05/16 12/07/16 01:42 Rx 5-325 mg TAB] RX: Ibuprofen [Motrin 800 MG tab] 800 mg PO Q8HR PRN #30 tablet 12/05/16 12/06/16 Rx RX: Prednisone [predniSONE 10 mg 10 mg PO .TAPER #1 tab.ds.pk 12/05/16 12/06/16 Rx (6-Day Pack, 21 Tabs)] RX: Albuterol Mdi (or & Nicu Only) 4 puff IH QID PRN #1 inhalation 04/20/17 Unknown Rx [ProAir HFA Inhaler] RX: predniSONE [Deltasone] 20 mg PO BID #10 tab 04/20/17 Unknown Rx Acetaminophen [Tylenol Arthritis] 650 mg PO Q6HR PRN #30 tablet.er 07/03/17 Unknown Rx Albuterol Sulfate [Proair 90 mcg IH Q4HR PRN #2 aer.pow.ba 07/03/17 Unknown Rx Respiclick] Fluticasone/Salmeterol (Nf) 2 puff INHALATION BID #1 blst.w.dev 07/03/17 Unknown Rx [Advair 250-50 Diskus] Furosemide [Lasix] 20 mg PO QDAY #30 tablet 07/03/17 Unknown Rx Ibuprofen [Motrin] 600 mg PO Q8H PRN #30 tablet 07/03/17 Unknown Rx Ondansetron [Zofran TAB] 4 mg PO Q8HR PRN #20 tablet 11/30/17 Unknown Rx RX: traMADoL [Ultram 50 MG tab] 50 mg PO Q6HR PRN #15 tablet 11/30/17 Unknown Rx Sulfamethoxazole/Trimethoprim 1 each PO BID #20 tablet 11/30/17 Unknown Rx [Bactrim DS TAB] cephALEXin [Keflex] 500 mg PO QID #30 capsule 11/30/17 Unknown Rx RX: Albuterol *Only Ed* 2.5 mg IH Q6H PRN #1 nebu 12/31/17 Unknown Rx [Proventil 0.5% NEBS] RX: Azithromycin [Zithromax Z-PATO] 1 dose PO DAILY 5 Days tab 12/31/17 Unknown Rx RX: predniSONE [Prednisone] 50 mg PO DAILY #5 tablet 12/31/17 Unknown Rx RX: ALBUTEROL NEB's [Proventil 2.5 mg IH TID PRN #20 neb 02/17/18 Unknown Rx 0.083% NEBS] RX: Albuterol Mdi (or & Nicu Only) 2 puff IH QID PRN #1 inhalation 02/17/18 Unknown Rx [ProAir HFA Inhaler] RX: Azithromycin [Zithromax TAB] 500 mg PO QDAY #7 tablet 02/17/18 Unknown Rx Ibuprofen [Motrin] 600 mg PO Q8H PRN #30 tablet 04/26/18 Unknown Rx Allergies Allergy/AdvReac Type Severity Reaction Status Date / Time No Known Allergies Allergy Verified 04/26/18 12:43 ED Review of Systems ROS: Stated complaint: CHRIS Other details as noted in HPI Constitutional: denies: chills, fever Eyes: denies: eye pain, eye discharge, vision change ENT: denies: ear pain, throat pain Respiratory: cough, shortness of breath, wheezing Cardiovascular: denies: chest pain, palpitations Endocrine: no symptoms reported Gastrointestinal: denies: abdominal pain, nausea, diarrhea Genitourinary: denies: urgency, dysuria, discharge Musculoskeletal: denies: back pain, joint swelling, arthralgia Skin: denies: rash, lesions Neurological: denies: headache, weakness, paresthesias Psychiatric: denies: anxiety, depression Hematological/Lymphatic: denies: easy bleeding, easy bruising ED Past Medical Hx - Past Medical History Previous Medical History?: Yes Hx Hypertension: No Hx Congestive Heart Failure: Yes Hx Diabetes: Yes Hx Deep Vein Thrombosis: No Hx Pulmonary Embolism: No Hx GERD: No Hx Liver Disease: No Hx Sickle Cell Disease: No Hx Asthma: Yes (intubated x 7) Hx COPD: Yes Hx Tuberculosis: No Hx HIV: No Additional medical history: Cardiac catheterization-normal 2011. Morbid obesity. Cholelithiasis. FIBROIDS X 3 - Surgical History Past Surgical History?: Yes Hx Coronary Stent: No Hx Open Heart Surgery: Yes Hx Internal Defibrillator: No Hx Cholecystectomy: No Hx Appendectomy: No Hx Breast Surgery: No - Family History Family history: no significant - Social History Smoking Status: Never Smoker Substance Use Type: None - Medications Home Medications: Home Medications Medication Instructions Recorded Confirmed Last Taken Type RX: predniSONE [Deltasone] 50 mg PO QDAY #5 tab 08/16/15 12/07/16 12/06/16 Rx RX: Albuterol Mdi (or & Nicu Only) 2 puff IH QID PRN #1 inhalation 03/12/16 12/07/16 12/06/16 Rx [ProAir HFA Inhaler] RX: predniSONE [Deltasone] 10 mg PO .TAPER #21 tab 03/12/16 12/07/16 12/06/16 Rx RX: Docusate Sodium [Colace CAP] 100 mg PO BID PRN #20 capsule 07/23/16 12/07/16 12/06/16 Rx RX: Ferrous Sulfate [Feosol 325 MG 325 mg PO QDAY #30 tablet 07/23/16 12/07/16 12/06/16 Rx tab] RX: medroxyPROGESTERone ACETATE 10 mg PO QDAY #10 tablet 07/23/16 12/07/16 Rx [Provera] RX: Benzonatate [Tessalon Perles] 100 mg PO Q8HR #30 capsule 12/05/16 12/07/16 12/06/16 Rx RX: HYDROcodone/APAP 5-325 [[place] 1 each PO Q6HR PRN #20 tablet 12/05/16 7 12/07/16 01:42 Rx 5-325 mg TAB] RX: Ibuprofen [Motrin 800 MG tab] 800 mg PO Q8HR PRN #30 tablet 12/05/16 12/07/16 12/06/16 Rx RX: Prednisone [predniSONE 10 mg 10 mg PO .TAPER #1 tab.ds.pk 12/05/16 12/07/16 12/06/16 Rx (6-Day Pack, 21 Tabs)] RX: Albuterol Mdi (or & Nicu Only) 4 puff IH QID PRN #1 inhalation 04/20/17 Unknown Rx [ProAir HFA Inhaler] RX: predniSONE [Deltasone] 20 mg PO BID #10 tab 04/20/17 Unknown Rx Acetaminophen [Tylenol Arthritis] 650 mg PO Q6HR PRN #30 tablet.er 07/03/17 Unknown Rx Albuterol Sulfate [Proair 90 mcg IH Q4HR PRN #2 aer.pow.ba 07/03/17 Unknown Rx Respiclick] Fluticasone/Salmeterol (Nf) 2 puff INHALATION BID #1 blst.w.dev 07/03/17 Unknown Rx [Advair 250-50 Diskus] Furosemide [Lasix] 20 mg PO QDAY #30 tablet 07/03/17 Unknown Rx Ibuprofen [Motrin] 600 mg PO Q8H PRN #30 tablet 07/03/17 Unknown Rx Ondansetron [Zofran TAB] 4 mg PO Q8HR PRN #20 tablet 11/30/17 Unknown Rx RX: traMADoL [Ultram 50 MG tab] 50 mg PO Q6HR PRN #15 tablet 11/30/17 Unknown Rx Sulfamethoxazole/Trimethoprim 1 each PO BID #20 tablet 11/30/17 Unknown Rx [Bactrim DS TAB] cephALEXin [Keflex] 500 mg PO QID #30 capsule 11/30/17 Unknown Rx RX: Albuterol *Only Ed* 2.5 mg IH Q6H PRN #1 nebu 12/31/17 Unknown Rx [Proventil 0.5% NEBS] RX: Azithromycin [Zithromax Z-PATO] 1 dose PO DAILY 5 Days tab 12/31/17 Unknown Rx RX: predniSONE [Prednisone] 50 mg PO DAILY #5 tablet 12/31/17 Unknown Rx RX: ALBUTEROL NEB's [Proventil 2.5 mg IH TID PRN #20 neb 02/17/18 Unknown Rx 0.083% NEBS] RX: Albuterol Mdi (or & Nicu Only) 2 puff IH QID PRN #1 inhalation 02/17/18 Unknown Rx [ProAir HFA Inhaler] RX: Azithromycin [Zithromax TAB] 500 mg PO QDAY #7 tablet 02/17/18 Unknown Rx Ibuprofen [Motrin] 600 mg PO Q8H PRN #30 tablet 04/26/18 Unknown Rx ED Physical Exam - General Limitations: No Limitations General appearance: alert, in distress, obese - Head Head exam: Present: atraumatic, normocephalic - Eye Eye exam: Present: normal appearance - ENT ENT exam: Present: mucous membranes dry - Neck Neck exam: Present: normal inspection - Respiratory Respiratory exam: Present: respiratory distress, wheezes, accessory muscle use, decreased breath sounds - Cardiovascular Cardiovascular Exam: Present: regular rate, normal rhythm. Absent: systolic murmur, diastolic murmur, rubs, gallop - GI/Abdominal GI/Abdominal exam: Present: soft, normal bowel sounds. Absent: distended, tenderness, guarding - Extremities Exam Extremities exam: Present: normal inspection - Back Exam Back exam: Present: normal inspection - Neurological Exam Neurological exam: Present: alert, oriented X3 - Psychiatric Psychiatric exam: Present: normal affect, normal mood - Skin Skin exam: Present: warm, dry, intact, normal color. Absent: rash ED Course Vital Signs 07/05/20 07/05/20 07/05/20 21:00 21:12 21:30 Temperature 98.3 F Pulse Rate 89 Pulse Rate [ Bilateral] Respiratory 16 Rate Respiratory Rate [Bilateral ] Blood Pressure 111/74 O2 Sat by Pulse 98 98 Oximetry 07/05/20 07/05/20 07/05/20 21:33 22:00 22:23 Temperature Pulse Rate 87 93 H Pulse Rate [ 90 Bilateral] Respiratory 21 15 Rate Respiratory 26 H Rate [Bilateral ] Blood Pressure 124/80 124/80 O2 Sat by Pulse 98 99 Oximetry 07/05/20 07/05/20 07/05/20 22:31 23:00 23:31 Temperature Pulse Rate 87 82 87 Pulse Rate [ Bilateral] Respiratory 12 20 14 Rate Respiratory Rate [Bilateral ] Blood Pressure 113/55 121/73 121/73 O2 Sat by Pulse 98 96 100 Oximetry 07/06/20 07/06/20 07/06/20 00:01 00:31 01:01 Temperature Pulse Rate 84 83 90 Pulse Rate [ Bilateral] Respiratory 19 14 13 Rate Respiratory Rate [Bilateral ] Blood Pressure 121/73 121/73 121/73 O2 Sat by Pulse 99 98 100 Oximetry 07/06/20 07/06/20 01:31 02:01 Temperature Pulse Rate 70 64 Pulse Rate [ Bilateral] Respiratory 20 17 Rate Respiratory Rate [Bilateral ] Blood Pressure 121/73 121/73 O2 Sat by Pulse 99 99 Oximetry - Reevaluation(s) Reevaluation #1: Initial evaluation done. Patient placed on BiPAP. Patient found to be hypoxic. Report received from EMS. EMS gave the patient albuterol, Solu-Medrol and magnesium IV. Patient's oxygenation improved however the patient still on 6 L of oxygen. Patient is still wheezing. Patient will be given a DuoNeb and placed on BiPAP. 07/05/20 20:45 Reevaluation #2: Patient on BiPAP. Patient states she is feeling better. Patient is receiving a breathing treatment. Patient worked to breathe has decreased. Patient's oxygenation has improved. Patient taking deeper breaths. Patient's lung sounds are improving. 07/05/20 21:32 Reevaluation #3: I discussed all results with patient. I discussed plan of care with patient. Patient agrees with plan of care and admission. Patient to be admitted to the hospitalist service. 07/05/20 23:03 - Consultations Consultation #1: Hospitalist consulted for admission. Hospitalist to admit patient. 07/05/20 23:03 ED Medical Decision Making - Lab Data Result diagrams: 07/05/20 21:18 07/05/20 21:18 - EKG Data -: EKG Interpreted by Me EKG shows normal: sinus rhythm, axis, intervals, QRS complexes, ST-T waves - Radiology Data Radiology results: report reviewed, image reviewed interpreted by me: Chest x-ray: No pneumonia, no pneumothorax, no foreign body, no osseous findings, pulmonary edema and CHF changes noted. Cardiomegaly noted. CHEST 1 VIEW INDICATION / CLINICAL INFORMATION: MAIN. Dyspnea asthma COPD COMPARISON: 09/18/2017 FINDINGS: SUPPORT DEVICES: None. HEART / MEDIASTINUM: Stable. LUNGS / PLEURA: Mild central pulmonary vascular congestion and hazy bilateral perihilar edema relatively unchanged prior exam. No pneumothorax. ADDITIONAL FINDINGS: No significant additional findings. IMPRESSION: 1. Findings consistent with congestive heart failure and mild perihilar edema. - Medical Decision Making Patient is a 44-year-old female that presents emergency with complaints of shortness of breath and difficulty breathing. Patient brought in by EMS. EMS found the patient to be hypoxic, increased work of breathing and wheezing. EMS gave the patient albuterol, Solu-Medrol and magnesium. Patient still hypoxic upon arrival to the ER and had increased work to breathe. Patient placed on BiPAP and given a DuoNeb immediately after initial evaluation. Patient responded well to BiPAP and DuoNeb. Patient's lung sounds improved. Patient's work to breathe improved with BiPAP. Patient's ABG done early in treatment and showed hypoxemia. Patient had a chest x-ray done which showed CHF changes and pulmonary edema but no pneumonia. Patient given prophylactic antibiotics. Patient given IV Lasix. Patient admitted to the hospital service for further evaluation treatment. Patient clinical findings are consistent with a COPD exacerbation even though the patient shows pulmonary edema on chest x-ray. - Differential Diagnosis COPD exacerbation. Shortness of breath, hypoxia, respiratory failure, CHF Critical Care Time: Yes Critical care time in (mins) excluding proc time.: 35 Critical care attestation.: If time is entered above; I have spent that time in minutes in the direct care of this critically ill patient, excluding procedure time. Critical Care Time: 35 minutes ED Disposition Clinical Impression: Hypoxia, COPD exacerbation, SOB (shortness of breath) Acute exacerbation of CHF (congestive heart failure) Qualifiers: Heart failure type: unspecified Qualified Code(s): I50.9 - Heart failure, unspecified Respiratory failure Qualifiers: Chronicity: acute Respiratory failure complication: hypoxia Qualified Code(s): J96.01 - Acute respiratory failure with hypoxia Disposition: 09 OP ADMIT IP TO THIS HOSP Is pt being admited?: Yes Does the pt Need Aspirin: No Condition: Critical Time of Disposition: 23:02
[2020-07-05 21:13] LABS: ABG Base Excess 1.4 mmol/L (-2.0-3.0); ABG HCO3 26.8 mmol/L (20.0-26.0); ABG PCO2 45.5 mm Hg; ABG PH 7.388 pH Units (7.350-7.450); ABG PO2 70.5 mm Hg (80.0-90.0)
[2020-07-05] MEDS ORDERED: IPRATROPIUM 0.02% NEBU 2.5 ML IH ONE (21:24)
[2020-07-05] MEDS ORDERED: ALBUTEROL 2.5 MG/3 ML NEBU IH ONE (21:24)
[2020-07-05 21:45] LABS: Basophils % (Auto) 0.4 % (0.0-1.8); Eosinophils # (Auto) 0.1 K/mm3 (0.0-0.4); Eosinophils % (Auto) 0.7 % (0.0-4.3); Hematocrit 40.1 % (30.3-42.9); Hemoglobin 12.5 gm/dl (10.1-14.3); Lymphocytes # (Auto) 1.1 K/mm3 (1.2-5.4); Lymphocytes % (Auto) 11.7 % (13.4-35.0); Mean Corpuscular HGB Conc 31 % (30-34); Mean Corpuscular Volume 81 fl (79-97); Monocytes # (Auto) 0.6 K/mm3 (0.0-0.8); Monocytes % (Auto) 6.5 % (0.0-7.3); Platelet Count 232 K/mm3 (140-440); Red Blood Count 4.95 M/mm3 (3.65-5.03); Red Cell Distribution Width 17.4 % (13.2-15.2)
--- NOTE | 2020-07-05 21:49 | XRay Report ---
CHEST 1 VIEW INDICATION / CLINICAL INFORMATION: MAIN. Dyspnea asthma COPD COMPARISON: 09/18/2017 FINDINGS: SUPPORT DEVICES: None. HEART / MEDIASTINUM: Stable. LUNGS / PLEURA: Mild central pulmonary vascular congestion and hazy bilateral perihilar edema relativ sara unchanged prior exam. No pneumothorax. ADDITIONAL FINDINGS: No significant additional findings. IMPRESSION: 1. Findings consistent with congestive heart failure and mild perihilar edema. Signer Name: Den López MD Signed: 07/05/2020 9:45 PM Workstation Name: [id number]
[2020-07-05 22:01] LABS: Alanine Aminotransferase 13 units/L (7-56); Albumin 3.7 g/dL (3.9-5); BUN/Creatinine Ratio 13; Blood Urea Nitrogen 10 mg/dL (7-17); Hemolysis Index 6
[2020-07-05] MEDS ORDERED: FUROSEMIDE 40 MG/4 ML INJ IV ONE (23:01)
[2020-07-06] MEDS ORDERED: MORPHINE 2 MG/1 ML INJ IV PRN ×2 (00:01)
[2020-07-06] MEDS ORDERED: DEXTROSE 50% IN WATER (25GM) 50 ML SYRINGE IV PRN (00:01)
[2020-07-06] MEDS ORDERED: MAGNESIUM HYDROXIDE (MOM) ORAL LIQD UDC PO PRN ×2 (00:01)
[2020-07-06] MEDS ORDERED: ONDANSETRON 4 MG/2 ML INJ IV PRN ×2 (00:01)
[2020-07-06] MEDS ORDERED: ACETAMINOPHEN 325 MG TAB PO PRN (00:01)
--- NOTE | 2020-07-06 00:14 | History and Physical Report ---
History of Present Illness Date of examination: 07/05/20 Date of admission: 07/05/20 23:32 Chief complaint: Shortness of breath History of present illness: 44-year-old female with known history of COPD, CHF, diabetes mellitus and morbid obesity presenting to the emergency room via EMS today complaining of shortness of breath and difficulty breathing. Shortness of breath is said to be worse on exertion. She denies any fever or chills, no nausea vomiting, denies any chest pain, no headache or dizziness. Patient was recently diagnosed with upper respiratory infection and has been on steroids and antibiotics. She indicates she has been wheezing. Upon arrival in the emergency room she was found to be in respiratory distress, wheezing and was subsequently placed on BiPAP and also given written nebulizing treatments. Work-up in the emergency room reveals some pulmonary edema on the chest x-ray. Patient is being admitted for acute dyspnea possibly secondary to COPD exacerbation versus congestive heart failure. Past History Past Medical History: diabetes, heart failure, other (Morbid obesity, Cholelithiasis, Asthma- s/p intubations X7) Past Surgical History: Other (Open heart surgery,Cardiac Cath.) Social history: no significant social history Family history: no significant family history Medications and Allergies Allergies Allergy/AdvReac Type Severity Reaction Status Date / Time No Known Allergies Allergy Verified 04/26/18 12:43 Home Medications Medication Instructions Recorded Confirmed Last Taken Type predniSONE [Deltasone] 50 mg PO QDAY #5 tab 08/16/15 12/07/16 12/06/16 Rx Albuterol Mdi (or & Nicu Only) 2 puff IH QID PRN #1 inhalation 03/12/16 12/07/16 12/06/16 Rx [ProAir HFA Inhaler] predniSONE [Deltasone] 10 mg PO .TAPER #21 tab 03/12/16 12/07/16 12/06/16 Rx Docusate Sodium [Colace CAP] 100 mg PO BID PRN #20 capsule 07/23/16 12/07/16 12/06/16 Rx Ferrous Sulfate [Feosol 325 MG tab] 325 mg PO QDAY #30 tablet 07/23/16 12/07/16 12/06/16 Rx medroxyPROGESTERone ACETATE 10 mg PO QDAY #10 tablet 07/23/16 12/07/16 12/06/16 Rx [Provera] Benzonatate [Tessalon Perles] 100 mg PO Q8HR #30 capsule 12/05/16 12/07/16 12/06/16 Rx HYDROcodone/APAP 5-325 [[place] 1 each PO Q6HR PRN #20 tablet 12/05/16 12/07/16 12/07/16 01:42 Rx 5-325 mg TAB] Ibuprofen [Motrin 800 MG tab] 800 mg PO Q8HR PRN #30 tablet 12/05/16 12/07/16 12/06/16 Rx Prednisone [predniSONE 10 mg 10 mg PO .TAPER #1 tab.ds.pk 12/05/16 12/07/16 12/06/16 Rx (6-Day Pack, 21 Tabs)] Albuterol Mdi (or & Nicu Only) 4 puff IH QID PRN #1 inhalation 04/20/17 Unknown Rx [ProAir HFA Inhaler] predniSONE [Deltasone] 20 mg PO BID #10 tab 04/20/17 Unknown Rx Acetaminophen [Tylenol Arthritis] 650 mg PO Q6HR PRN #30 tablet.er 07/03/17 Unknown Rx Albuterol Sulfate [Proair 90 mcg IH Q4HR PRN #2 aer.pow.ba 07/03/17 Unknown Rx Respiclick] Fluticasone/Salmeterol (Nf) 2 puff INHALATION BID #1 blst.w.dev 07/03/17 Unknown Rx [Advair 250-50 Diskus] Furosemide [Lasix] 20 mg PO QDAY #30 tablet 07/03/17 Unknown Rx Ibuprofen [Motrin] 600 mg PO Q8H PRN #30 tablet 07/03/17 Unknown Rx Ondansetron [Zofran TAB] 4 mg PO Q8HR PRN #20 tablet 11/30/17 Unknown Rx Sulfamethoxazole/Trimethoprim 1 each PO BID #20 tablet 11/30/17 Unknown Rx [Bactrim DS TAB] cephALEXin [Keflex] 500 mg PO QID #30 capsule 11/30/17 Unknown Rx traMADoL [Ultram 50 MG tab] 50 mg PO Q6HR PRN #15 tablet 11/30/17 Unknown Rx Albuterol *Only Ed* [Proventil 2.5 mg IH Q6H PRN #1 nebu 12/31/17 Unknown Rx 0.5% NEBS] Azithromycin [Zithromax Z-PATO] 1 dose PO DAILY 5 Days tab 12/31/17 Unknown Rx predniSONE [Prednisone] 50 mg PO DAILY #5 tablet 12/31/17 Unknown Rx ALBUTEROL NEB's [Proventil 0.083% 2.5 mg IH TID PRN #20 neb 02/17/18 Unknown Rx NEBS] Albuterol Mdi (or & Nicu Only) 2 puff IH QID PRN #1 inhalation 02/17/18 Unknown Rx [ProAir HFA Inhaler] Azithromycin [Zithromax TAB] 500 mg PO QDAY #7 tablet 02/17/18 Unknown Rx Ibuprofen [Motrin] 600 mg PO Q8H PRN #30 tablet 04/26/18 Unknown Rx Active Meds: Active Medications Acetaminophen (Tylenol) 650 mg PO Q4H PRN PRN Reason: Pain MILD(1-3)/Fever >100.5/LUCAS Ondansetron HCl (Zofran) 4 mg IV Q8H PRN PRN Reason: Nausea And Vomiting Sodium Chloride (Sodium Chloride Flush Syringe 10 Ml) 10 ml IV BID DAMEON Sodium Chloride (Sodium Chloride Flush Syringe 10 Ml) 10 ml IV PRN PRN PRN Reason: LINE FLUSH Review of Systems Constitutional: no fever, no chills Ears, nose, mouth and throat: no nasal congestion, no sore throat Cardiovascular: no chest pain, no palpitations Respiratory: cough, shortness of breath Gastrointestinal: no abdominal pain, no nausea, no vomiting, no diarrhea Genitourinary Female: no flank pain, no dysuria, no hematuria Musculoskeletal: no neck pain, no low back pain Integumentary: no rash, no pruritis Neurological: no headaches, no confusion Psychiatric: no anxiety, no depression Exam - Constitutional Vitals: Temp Pulse Resp BP Pulse Ox 98.3 F 87 21 124/80 98 07/05/20 21:00 07/05/20 22:00 07/05/20 22:00 07/05/20 22:00 07/05/20 22:00 General appearance: Present: mild distress, well-nourished, obese - EENT Eyes: Present: PERRL, EOM intact ENT: hearing intact, clear oral mucosa, dentition normal - Neck Neck: Present: supple, normal ROM - Respiratory Respiratory effort: labored Respiratory: bilateral: wheezing (diffuse) - Cardiovascular Rhythm: regular Heart Sounds: Present: S1 & S2. Absent: gallop, systolic murmur, diastolic murmur, rub - Extremities Extremities: no ischemia, pulses intact, pulses symmetrical, No edema, Full ROM Peripheral Pulses: within normal limits - Abdominal General gastrointestinal: Present: soft, non-tender, non-distended, normal bowel sounds. Absent: mass - Integumentary Integumentary: Present: clear, warm, dry - Musculoskeletal Musculoskeletal: strength equal bilaterally - Psychiatric Psychiatric: appropriate mood/affect, intact judgment & insight, memory intact, cooperative - Neurologic Neurologic: CNII-XII intact, no focal deficits, moves all extremities Results - Labs CBC & Chem 7: 07/05/20 21:18 07/05/20 21:18 Labs: Abnormal lab results 07/05/20 07/05/20 07/05/20 Range/Units 21:00 21:18 21:18 MCH 25 L (28-32) pg RDW 17.4 H (13.2-15.2) % Lymph % (Auto) 11.7 L (13.4-35.0) % Lymph # (Auto) 1.1 L (1.2-5.4) K/mm3 Seg Neutrophils % 80.7 H (40.0-70.0) % ABG pO2 70.5 L (80.0-90.0) mm Hg ABG HCO3 26.8 H (20.0-26.0) mmol/L Oxyhemoglobin 92.8 L (95.0-99.0) % Sodium 136 L (137-145) mmol/L Chloride 97.1 L (98-107) mmol/L Glucose 133 H (65-100) mg/dL Albumin 3.7 L (3.9-5) g/dL Assessment and Plan - Patient Problems (1) Respiratory failure Current Visit: Yes Status: Acute Qualifiers: Chronicity: acute Respiratory failure complication: hypoxia Qualified Code(s): J96.01 - Acute respiratory failure with hypoxia Plan to address problem: Probably secondary to COPD versus CHF exacerbation. Patient currently on BiPAP. Will place consult to [employer] for evaluation. (2) Acute exacerbation of CHF (congestive heart failure) Current Visit: Yes Status: Acute Qualifiers: Heart failure type: unspecified Qualified Code(s): I50.9 - Heart failure, unspecified Plan to address problem: Patient placed on diuretics. Will monitor inputs and output and also monitor daily weight. Patient will be scheduled for echocardiogram. (3) COPD exacerbation Current Visit: Yes Status: Acute Plan to address problem: Patient placed on nebulizing treatments and also IV steroid. We will keep O2 saturation greater or equal to 94%. (4) Hypoxia Current Visit: Yes Status: Acute Plan to address problem: Possibly secondary to the CHF exacerbation and or underlying COPD. We will monitor oxygen saturation. (5) DVT prophylaxis Current Visit: Yes Status: Acute Plan to address problem: Patient placed on subcutaneous Lovenox. (6) Morbid obesity with BMI of 60.0-69.9, adult Current Visit: Yes Status: Acute Plan to address problem: We will place dietary consult. Encouraged on lifestyle modification. (7) Full code status Current Visit: Yes Status: Acute
[2020-07-06] MEDS ORDERED: IPRATROPIUM/ALBUTEROL SULFATE 3 ML AMPUL.NEB IH SCH (04:00)
[2020-07-06] MEDS ORDERED: methylPREDNISolone Sod Succinate 40 MG/1 ML INJ IV SCH (06:00)
[2020-07-06] MEDS ORDERED: FUROSEMIDE 40 MG/4 ML INJ IV SCH (06:00)
[2020-07-06] MEDS ORDERED: FUROSEMIDE 40 MG/4 ML INJ ONE (07:23)
[2020-07-06] MEDS ORDERED: methylPREDNISolone Sod Succinate 40 MG/1 ML INJ ONE (07:23)
[2020-07-06] MEDS ORDERED: INSULIN LISPRO 100 UNIT/ML VIAL 3 mL SUB-Q SCH (07:30)
[2020-07-06 07:41] VITALS: BP 100/80
--- NOTE | 2020-07-06 08:26 | Event Note ---
Date: 07/06/20 44-year-old female with known history of COPD, CHF, diabetes mellitus and morbid obesity presenting to the emergency room via EMS today complaining of shortness of breath and difficulty breathing. Shortness of breath is said to be worse on exertion. She denies any fever or chills, no nausea vomiting, denies any chest pain, no headache or dizziness. Patient was recently diagnosed with upper respiratory infection and has been on steroids and antibiotics. She indicates she has been wheezing. Upon arrival in the emergency room she was found to be in respiratory distress, wheezing and was subsequently placed on BiPAP and also given written nebulizing treatments. Work-up in the emergency room reveals some pulmonary edema on the chest x-ray. Patient is being admitted for acute dyspnea possibly secondary to COPD exacerbation versus congestive heart failure.
[2020-07-06] MEDS ORDERED: IPRATROPIUM/ALBUTEROL SULFATE 3 ML AMPUL.NEB IH ONE (08:31)
[2020-07-06] MEDS ORDERED: ENOXAPARIN 40 MG/0.4 ML INJ SUB-Q SCH (22:00)
== END 2020-07-06 10:00 | disposition left against medical advice (07) | DRG 189 ==
LOC: ED 20:43 → IMCU 23:32 → CC1 07-06 06:40
PROVIDERS: ADMIT Internal Medicine Geriatric Medicine; ATTEND Internal Medicine
PROC: 5A09357 Assistance with Respiratory Ventilation, Less than 24 Consecutive Hours, Continuous Positive Airway Pressure (ICD-10-PCS; principal; 2020-07-05)
DX: J96.01 Acute respiratory failure with hypoxia (principal); I50.9 Heart failure, unspecified; E66.01 Morbid (severe) obesity due to excess calories; E11.9 Type 2 diabetes mellitus without complications; J44.1 Chronic obstructive pulmonary disease with (acute) exacerbation; Z53.29 Procedure and treatment not carried out because of patient's decision for other reasons; Z68.44 Body mass index [BMI] 60.0-69.9, adult
CPT/HCPCS: 36415; 71045; 80053; 82140; 82803; 83880; 84484; 85025; 93005; 94640; 94644; G0378; J0692; J1940; J2920

== ENCOUNTER 2021-01-08 15:56 | Emergency (ER) | payer MEDICAID ==
[2021-01-08 16:19] VITALS: BP 138/80
== END 2021-01-08 17:00 | disposition left against medical advice (07) ==
LOC: ED 15:56
DX: M79.604 Pain in right leg (principal); Z53.21 Procedure and treatment not carried out due to patient leaving prior to being seen by health care provider